=== PATIENT | female | born 1960 | race Caucasian/White ===

== ENCOUNTER 2017-07-23 17:30 | Inpatient (IN) | payer MEDICARE, MEDICAID ==
[~2017-07-23] VITALS: Ht 170.2 cm; Wt 91.3 kg
[~2017-07-23 17:30] MED LIST: FAMO-63 PO; SODI15DR4 OU
--- NOTE | 2017-07-23 17:36 | ED.ADGEN ---
Past History Past Medical History: Arthritis, Asthma, Depression, Schizophrenia Past Surgical History: Other Adult General Chief Complaint Chief Complaint " They sent me... to get check out..." HPI HPI Patient is a 56 year old female who presents with above hx and complaint by [facility] . on increasing mental status change. Pt. reportedly much clearer mental status in of this year per [facility] staff. Pt. seems to be now constantly confused. The last week pt has become very confused. Pt. is cooperative. Pt. obvious having problems with memory and requires repeated questions to obtain information. Patient does have a history of COPD, lupus, schizophrenia, anxiety disorder, Parkinson's, coronary artery disease, asthma, occasional ileus, depression, hypothyroid, and dysphagia. No recent medication changes. No travel or specific ill contacts. No history of fevers. Patient has been known to fall because of gait disorder. Patient normally follows with Dr. De Jesus. Review of Systems Review of Systems Patient has no specific complaints. Patient somewhat poor historian Constitutional: Denies fever or chills [] Eyes: Denies change in visual acuity, redness, or eye pain [] HENT: Denies nasal congestion or sore throat [] Respiratory: Denies cough or shortness of breath [] Cardiovascular: No additional information not addressed in HPI [] GI: Denies abdominal pain, nausea, vomiting, bloody stools or diarrhea [] : Denies dysuria or hematuria [] Musculoskeletal: History of generalized back pain or joint pain [] Integument: Denies rash or skin lesions [] Neurologic: Denies headache, focal weakness or sensory changes [] Endocrine: Denies polyuria or polydipsia [] All other systems were reviewed and found to be within normal limits, except as documented in this note. Family History Family History Not currently available Current Medications Current Medications Current Medications Medications (Trade) Dose Ordered Sig/Shae Start Time Stop Time Status Last Admin Dose Admin Cephalexin HCl (Keflex) 500 mg 1X ONCE 07/23/17 20:15 07/23/17 20:16 DC 07/23/17 20:10 500 MG Potassium Chloride (KCl Oral Soln) 40 meq 1X STAT 07/23/17 19:45 07/23/17 19:48 DC 07/23/17 20:06 40 MEQ Sodium Chloride 1,000 ml @ 1,000 mls/hr Q1H 07/23/17 18:00 07/23/17 18:59 DC 07/23/17 18:00 1,000 MLS/HR See nursing for assisted medications Allergies Allergies Allergies Coded Allergies Type Severity Reaction Last Updated Verified sulfamethoxazole Allergy Intermediate 07/23/17 Yes trimethoprim Allergy Intermediate 07/23/17 Yes Physical Exam Physical Exam Constitutional: no acute distress, non-toxic appearance. [] HENT: Normocephalic, atraumatic, bilateral external ears normal, oropharynx moist, no oral exudates, nose normal. [] Eyes: PERRLA, EOMI, conjunctiva normal, no discharge. Glasses Neck: Normal range of motion, no tenderness, supple, no stridor. [] Cardiovascular: Bradycardia Heart rate regular rhythm, no murmur []PMI to the left Lungs & Thorax: Bilateral breath sounds a few scattered wheezes at apexes on auscultation [] Abdomen: Bowel sounds normal, soft, no tenderness, no masses, no pulsatile masses. [] Skin: Warm, dry, no erythema, no rash. [] Back: No tenderness, no CVA tenderness. [] Extremities: No tenderness, no cyanosis, no clubbing, ROM intact, no edema. [] Rt. arm in compression splint. Neurologic: Alert and oriented X 3, normal motor function, normal sensory function, no focal deficits noted. [] Psychologic: Affect anxious, judgement appear s to have limited insight, mood depressed. Current Patient Data Vital Signs Vital Signs Date Time Temp Pulse Resp B/P (MAP) Pulse Ox O2 Delivery O2 Flow Rate FiO2 07/23/17 19:44 84 18 102/74 (83) 98 07/23/17 19:11 Room Air 07/23/17 17:39 97.7 Lab Results Laboratory Tests Test 07/23/17 18:19 White Blood Count 7.0 x10^3/uL (4.0-11.0) Red Blood Count 4.86 x10^6/uL (3.50-5.40) Hemoglobin 11.8 g/dL (12.0-15.5) L Hematocrit 37.4 % (36.0-47.0) Mean Corpuscular Volume 77 fL (79-100) L Mean Corpuscular Hemoglobin 24 pg (25-35) L Mean Corpuscular Hemoglobin Concent 32 g/dL (31-37) Red Cell Distribution Width 15.9 % (11.5-14.5) H Platelet Count 292 x10^3/uL (140-400) Neutrophils (%) (Auto) 63 % (31-73) Lymphocytes (%) (Auto) 27 % (24-48) Monocytes (%) (Auto) 8 % (0-9) Eosinophils (%) (Auto) 2 % (0-3) Basophils (%) (Auto) 1 % (0-3) Neutrophils # (Auto) 4.5 x10^3uL (1.8-7.7) Lymphocytes # (Auto) 1.9 x10^3/uL (1.0-4.8) Monocytes # (Auto) 0.5 x10^3/uL (0.0-1.1) Eosinophils # (Auto) 0.1 x10^3/uL (0.0-0.7) Basophils # (Auto) 0.0 x10^3/uL (0.0-0.2) Erythrocyte Sedimentation Rate 51 (0-25) H Prothrombin Time 10.1 SEC (9.4-11.4) Prothrombin Time INR 1.0 (0.9-1.1) PTT 25 SEC (23-33) Urine Collection Type U cath Urine Color Straw Urine Clarity Hazy Urine pH 6.5 Urine Specific Crane 1.015 Urine Protein Neg (NEG-TRACE) Urine Glucose (UA) Neg mg/dL (NEG) Urine Ketones (Stick) Neg mg/dL (NEG) Urine Blood Trace (NEG) Urine Nitrite Neg (NEG) Urine Bilirubin Neg (NEG) Urine Urobilinogen Dipstick 1 mg/dL (0.2 mg/dL) Urine Leukocyte Esterase Mod (NEG) Urine RBC Occ /HPF (0-2) Urine WBC 20-40 /HPF (0-4) Urine Squamous Epithelial Cells Occ /LPF Urine Bacteria Many /HPF (0-FEW) Urine Mucus Mod /LPF Sodium Level 140 mmol/L (136-145) Potassium Level 3.4 mmol/L (3.5-5.1) L Chloride Level 107 mmol/L (98-107) Carbon Dioxide Level 26 mmol/L (21-32) Anion Gap 7 (6-14) Blood Urea Nitrogen 11 mg/dL (7-20) Creatinine 0.8 mg/dL (0.6-1.0) Estimated GFR (Cockcroft-Gault) 74.5 Glucose Level 100 mg/dL (70-99) H Calcium Level 8.7 mg/dL (8.5-10.1) Magnesium Level 2.0 mg/dL (1.8-2.4) Total Bilirubin 0.2 mg/dL (0.2-1.0) Direct Bilirubin < 0.1 mg/dL (0.0-0.2) Aspartate Amino Transferase (AST) 11 U/L (15-37) L Alanine Aminotransferase (ALT) 10 U/L (14-59) L Alkaline Phosphatase 147 U/L (46-116) H Troponin I Quantitative < 0.017 ng/mL (0-0.055) Total Protein 7.3 g/dL (6.4-8.2) Albumin 2.7 g/dL (3.4-5.0) L Urine Opiates Screen Pos (NEG) Urine Methadone Screen Neg (NEG) Urine Barbiturates Neg (NEG) Urine Phencyclidine Screen Neg (NEG) Urine Amphetamine/Methamphetamine Neg (NEG) Urine Benzodiazepines Screen Neg (NEG) Urine Cocaine Screen Neg (NEG) Urine Cannabinoids Screen Neg (NEG) Ethyl Alcohol Level < 10 mg/dL (0-10) Urine Ethyl Alcohol Neg (NEG) EKG EKG My interpretation of EKG shows a sinus rhythm at 65 bpm. There is some nonspecific anterior lateral changes. There are findings of intraventricular block. No findings of acute STEMI with contralateral changes[] Radiology/Procedures Radiology/Procedures My interpretation of chest x-ray shows no free air under diaphragm. Some cephalization. But no acute cardiopulmonary findings. My interpretation of CT of head shows no shift, mass, bleed, fracture, or obvious infarct. Course & Med Decision Making Course & Med Decision Making Pertinent Labs and Imaging studies reviewed. (See chart for details). Pt. pre approved for [facility] admit to Dr. Arora. Will obtain a Med consult in AM with Dr. Nolan to follow up pending ESR, UA results and Anemia. [] Final Impression Final Impression 1. Mental Status Change[]\\ 2. Anemia hypochromic microcytic 3. Hypokalemia 4. Malnutrition albumin 2.7 5. History of schizoaffective disorder 6. Arthritis 7. UTI Problems: Dragon Disclaimer Dragon Disclaimer This electronic medical record was generated, in whole or in part, using a voice recognition dictation system. RONI MONCADA MD Jul 23, 2017 17:35
[2017-07-23] MEDS ORDERED: IV NORMAL SALINE 1,000ML 1,000 ML IV SCH (18:00)
--- NOTE | 2017-07-23 18:11 | RAD ---
CT head without contrast TECHNIQUE: [address] imaging skull base to vertex. HISTORY: Altered mental status. FINDINGS: No intracranial hemorrhage, mass, hydrocephalus, extra-axial fluid collections or infarction. Mild streak artifact from the skull base through the middle and posterior cranial fossa may decrease sensitivity to detect subtle pathology at these locations. Imaged orbits, mastoids and bones are unremarkable. IMPRESSION: No acute intracranial CT abnormality. Exposure: One or more of the following individualized dose reduction techniques were utilized for this examination: 1. Automated exposure control 2. Adjustment of the mA and/or kV according to patient size 3. Use of iterative reconstruction technique Electronically signed by: Garfield Daly MD (07/23/2017 6:08 PM) [facility]
[2017-07-23 18:40] LABS: BASO % 1 % (0-3); EOS # 0.1 x10^3/uL (0.0-0.7); EOS % 2 % (0-3); HEMATOCRIT 37.4 % (36.0-47.0); HEMOGLOBIN 11.8 g/dL (12.0-15.5); LYMPH # 1.9 x10^3/uL (1.0-4.8); LYMPH % 27 % (24-48); MEAN CORPUSCULAR HEMOGLOBIN 24 pg (25-35); MEAN CORPUSCULAR HGB CONC 32 g/dL (31-37); MEAN CORPUSCULAR VOLUME 77 fL (79-100); MONO # 0.5 x10^3/uL (0.0-1.1); MONO % 8 % (0-9); NEUT # 4.5 x10^3uL (1.8-7.7); NEUT % 63 % (31-73); PLATELET COUNT 292 x10^3/uL (140-400); RED BLOOD COUNT 4.86 x10^6/uL (3.50-5.40); RED CELL DISTRIBUTION WIDTH 15.9 % (11.5-14.5)
--- NOTE | 2017-07-23 19:05 | EKG ---
[address] [address] Test Date: 2017-07-23 Test Time: 17:39:56 Pat Name: EDGARD EPSTEIN Department: Room: Gender: F Director Medical Writing: DOMENICO : 1960 Requested By: RONI MONCADA Order Number: [id number] Reading MD: Rogerio Damon Measurements Intervals [place] Rate: 65 P: 52 AL: 182 QRS: 53 QRSD: 120 T: 20 QT: 402 QTc: 419 Interpretive Statements SINUS RHYTHM R-S TRANSITION ZONE IN V LEADS DISPLACED TO THE RIGHT QRS(T) CONTOUR ABNORMALITY CONSIDER ANTEROLATERAL MYOCARDIAL DAMAGE POSSIBLY ABNORMAL ECG RI6.01 No previous ECG available for comparison Electronically Signed On 07-26-2017 16:21:36 TRACK REPAIR PERSON by Rogerio Damon
[2017-07-23 19:19] LABS: ALBUMIN 2.7 g/dL (3.4-5.0); ALK PHOS 147 U/L (46-116); ALT (SGPT) 10 U/L (14-59); ANION GAP 7 (6-14); AST (SGOT) 11 U/L (15-37); BLOOD UREA NITROGEN 11 mg/dL (7-20); CALCIUM 8.7 mg/dL (8.5-10.1); CARBON DIOXIDE 26 mmol/L (21-32); CHLORIDE 107 mmol/L (98-107); CREATININE 0.8 mg/dL (0.6-1.0); DIRECT BILIRUBIN < 0.1 mg/dL (0.0-0.2); GFR 74.5; GLUCOSE 100 mg/dL (70-99); POTASSIUM 3.4 mmol/L (3.5-5.1); SODIUM 140 mmol/L (136-145); TOTAL BILIRUBIN 0.2 mg/dL (0.2-1.0); TOTAL PROTEIN 7.3 g/dL (6.4-8.2)
[2017-07-23 19:23] LABS: BARBITURATES NEG (NEG); BENZODIAZEPINES NEG (NEG); CANNABINOIDS NEG (NEG); COCAINE NEG (NEG); METHADONE NEG (NEG); OPIATES POS (NEG); PHENCYCLIDINE NEG (NEG)
[2017-07-23 19:31] LABS: AMPHETAMINE/METHAMPHETAMINE NEG (NEG)
[2017-07-23] MEDS ORDERED: POTASSIUM CHLORIDE 20 MEQ/15 ML ORAL LIQUID. PO STA (19:45)
[2017-07-23 19:55] LABS: BACTERIA,URINE MANY /HPF (0-FEW); BILIRUBIN,URINE NEG (NEG); CLARITY,URINE HAZY; COLOR,URINE STRAW; GLUCOSE,URINE NEG (NEG); NITRITE,URINE NEG (NEG); RBC,URINE OCC /HPF (0-2); SQUAMOUS EPITHELIAL CELL,UR OCC /LPF; UROBILINOGEN,URINE 1 mg/dL (0.2 mg/dL); WBC,URINE 20-40 /HPF (0-4)
[2017-07-23] MEDS ORDERED: CEPHALEXIN 250 MG CAPSULE PO ONE (20:15)
--- NOTE | 2017-07-23 20:30 | NUR ---
Admission Note with Justification for Admission to [facility] Patient admitted to [facility] for protective oversight for emergency stabilization of acute psychiatric crisis. Pt admitted from: SNF Mode of arrival: EMS Accompanied By: [facility] Staff Precipitating behaviors that initiated intake and admission:Pt noted with increased confusion, episodes of incontinence, Hallucinations, delusions, increased aggression towards staff and difficulty with redirection. Description of failure of out patient attempts at stabilization in previous setting list behavior and medication trials:Attempts to redirect and administration of scheduled medications not effective, Pt seen by Psychiatrist in facility with recommendation for Inpatient placement for medications stabilization. Behaviors and assessment findings upon admission: Pt alert and oriented to self and that she is in the hospital, unable to maintain conversation long enough to state the current year or the reason for her visit. Pt asks "where is Miri" when nurse asked pt whom she was speaking about, pt states "the girl that was just sitting on the bed with me" Calm and cooperative with cares, assessment and medications Plan: Admit for protective oversight for adjustment and stabilization of medications, behaviors and mood. Intense treatment regimen including groups, medication adjustments, therapy, consistent regimen for ADL's, self care, and sleep hygiene. Daily monitoring by Inpatient staff, Psychiatry, and Medical Physician.
[2017-07-23] MEDS ORDERED: GABA-586 PO (20:46)
[2017-07-23] MEDS ORDERED: LEVE250T30 PO (20:46)
[2017-07-23] MEDS ORDERED: MAG355OR11 PO (20:46)
[2017-07-23] MEDS ORDERED: CLON0.5T3 PO (20:46)
[2017-07-23] MEDS ORDERED: PARO30TA3 PO (20:46)
[2017-07-23] MEDS ORDERED: HYDR50CA2 PO (20:46)
[2017-07-23] MEDS ORDERED: IPRA3AMP NEB (20:46)
[2017-07-23] MEDS ORDERED: ACET-704 PO (20:46)
[2017-07-23] MEDS ORDERED: SENN8.6T99 PO (20:46)
[2017-07-23] MEDS ORDERED: LEVO75TA5 PO (20:46)
[2017-07-23] MEDS ORDERED: LIPA1CAP4 PO (20:46)
[2017-07-23] MEDS ORDERED: FURO40TA4 PO (20:46)
[2017-07-23] MEDS ORDERED: TRAZ150T49 PO (20:46)
[2017-07-23] MEDS ORDERED: NYST15OI TP (20:46)
[2017-07-23] MEDS ORDERED: ARIP5TAB13 PO (20:46)
[2017-07-23] MEDS ORDERED: BENZ0.5T PO (20:46)
[2017-07-23] MEDS ORDERED: ACET250T2 PO (20:46)
[2017-07-23] MEDS ORDERED: POLY119P4 PO (20:46)
[2017-07-23] MEDS ORDERED: acetaZOLAMIDE 250 MG TABLET PO SCH (21:00)
[2017-07-23] MEDS ORDERED: SENNOSIDES 8.6 MG TABLET PO PRN (21:00)
[2017-07-23] MEDS ORDERED: IPRATRPIUM/ALBUTEROL 0.5/2.5MG 3 ML NEBU. NEB PRN (21:00)
[2017-07-23] MEDS ORDERED: MAG HYDROX/AL HYDROX/SIMETH 30 ML ORAL.SUSP PO PRN (21:15)
[2017-07-23 21:41] VITALS: BP 113/54
[2017-07-23] MEDS: GABAPENTIN 300 MG CAPSULE. PO SCH (21:50)
[2017-07-23] MEDS: ACETAMINOPHEN/CODEINE 300/30MG TABLET PO SCH (21:50)
[2017-07-23] MEDS: traZODone 150 MG TABLET. PO SCH (21:50)
[2017-07-23] MEDS: clonazePAM 0.5 MG TABLET PO SCH (21:50)
[2017-07-23] MEDS: levETIRAcetam 250 MG TABLET PO SCH (21:50)
[2017-07-23] MEDS: BENZTROPINE MESYLATE 0.5 MG TABLET PO SCH (21:50)
[2017-07-23] MEDS: FAMOTIDINE 20 MG TABLET PO SCH (21:50)
[2017-07-23] MEDS: SODIUM CHLORIDE 5% OPHTH SOLUTION 15ML BOTTLE. OU SCH (21:51)
[2017-07-23 22:42] LABS: SEDIMENTATION RATE 51 (0-25)
[2017-07-24 05:48] VITALS: BP 112/55
[2017-07-24] MEDS: LEVOTHYROXINE 75 MCG TABLET PO SCH (05:53)
--- NOTE | 2017-07-24 05:54 | NUR ---
Patient has been provided with Practical Counseling for tobacco cessation. It included a face to face interaction and the following was discussed: Recognizing danger situations, Developing coping skills,Basic cessation information. Will follow for discharge needs and discharge planning. Patient states that she quit 25 days ago.
[2017-07-24 07:32] LABS: BASO % 1 % (0-3); EOS # 0.1 x10^3/uL (0.0-0.7); EOS % 2 % (0-3); HEMATOCRIT 37.1 % (36.0-47.0); HEMOGLOBIN 11.7 g/dL (12.0-15.5); LYMPH # 1.3 x10^3/uL (1.0-4.8); LYMPH % 17 % (24-48); MEAN CORPUSCULAR HEMOGLOBIN 24 pg (25-35); MEAN CORPUSCULAR HGB CONC 32 g/dL (31-37); MEAN CORPUSCULAR VOLUME 77 fL (79-100); MONO # 0.6 x10^3/uL (0.0-1.1); MONO % 8 % (0-9); NEUT # 5.4 x10^3uL (1.8-7.7); NEUT % 73 % (31-73); PLATELET COUNT 273 x10^3/uL (140-400); RED BLOOD COUNT 4.81 x10^6/uL (3.50-5.40); WHITE BLOOD COUNT 7.4 x10^3/uL (4.0-11.0)
[2017-07-24 07:45] LABS: CALCIUM 9.1 mg/dL (8.5-10.1); CREATININE 0.8 mg/dL (0.6-1.0); GFR 74.5; POTASSIUM 3.6 mmol/L (3.5-5.1)
[2017-07-24] MEDS: levETIRAcetam 250 MG TABLET PO SCH ×2 (08:03→19:44)
[2017-07-24] MEDS: BENZTROPINE MESYLATE 0.5 MG TABLET PO SCH ×2 (08:03→19:43)
[2017-07-24] MEDS: GABAPENTIN 300 MG CAPSULE. PO SCH ×3 (08:03→19:43)
[2017-07-24] MEDS: clonazePAM 0.5 MG TABLET PO SCH ×2 (08:03→19:44)
[2017-07-24] MEDS: FAMOTIDINE 20 MG TABLET PO SCH ×2 (08:03→19:44)
[2017-07-24] MEDS: ACETAMINOPHEN/CODEINE 300/30MG TABLET PO SCH ×4 (08:05→19:43)
[2017-07-24] MEDS: CEPHALEXIN 250 MG CAPSULE PO SCH ×3 (08:05→19:43)
[2017-07-24] MEDS: FUROSEMIDE 40 MG TABLET PO SCH (08:06)
[2017-07-24] MEDS: LIPASE/PROTEAS/AMYLAS 10/34/55 CAPSULE.DR. PO SCH ×3 (08:06→16:51)
[2017-07-24] MEDS: ARIPiprazole 5 MG TABLET PO SCH (08:06)
[2017-07-24] MEDS: SODIUM CHLORIDE 5% OPHTH SOLUTION 15ML BOTTLE. OU SCH ×4 (08:08→19:45)
[2017-07-24] MEDS ORDERED: POLYETHYLENE GLYCOL 3350 17 GM PACKET. PO PRN (09:00)
--- NOTE | 2017-07-24 09:06 | RAD ---
AP PORTABLE CHEST Clinical Indication: cough. Mental status change. Comparison: None. Findings: Atherosclerotic aortic arch. The cardiomediastinal silhouette is normal. Lungs are clear. There is no pneumothorax. No pleural effusion is appreciated. There is no acute bone abnormality. IMPRESSION: No acute cardiopulmonary process.
--- NOTE | 2017-07-24 09:57 | NUR ---
Behavior Intervention Response and Plan: BIRP Note: Behavior: Assumed Care of patient, patient located in Dining Room at shift change. Patient exhibited the following behavior Calm, Disorganized, Able to Focus on Task. Brief assessment on rounds of vital signs, medication needs, lab studies, and pain. Treatment plan problems . Intervention: Patient assessed and the following interventions initiated safety checks 15 Minute Checks Cognitive Assessment , Head to toe Assessment , Medications. Response: After interactions and interventions patient responded in the following manner, Compliant , Cooperative ,Withdrawn. Continue to assess behaviors and condition will continue to monitor throughout the shift as needed. Patient educated on ADL's, and hand hygiene. Plan: Continue to monitor Master Treatment Plan for patient's progress toward short term goals of Improved Mood, Medication Compliance, residential goals to return to previous living setting vs placement. Continue to assess patient for changes in above assessment. Monitor for medication needs, pain, and safety concerns. Hourly rounding performed to ensure safe environment.
--- NOTE | 2017-07-24 12:27 | HP ---
ADMIT DATE: 07/23/2017 MEDICAL HISTORY AND PHYSICAL FOR THE [facility] REASON FOR ADMISSION TO THE [facility]: This is a 56-year-old female who has come from [facility]. She has had increase confusion, delusional, hallucinations, incontinent, verbally aggressive, cut her hair or roommate, strange behavior. Onset of symptoms 6 weeks. The patient was seen by the psychiatrist and was treated for the flu. PAST MEDICAL HISTORY: Major depressive disorder, schizophrenia, anxiety, recent flu, unspecified heart failure, Parkinson's, COPD, asthma, hypothyroidism, hyperlipidemia, dysphagia. ALLERGIES: SULFAMETHOXAZOLE AND TRIMETHOPRIM. MEDICATIONS: Reviewed and are available on the MAR. REVIEW OF SYSTEMS: The patient does have urinary symptoms of dysuria and frequency. Positive cough, positive sputum. She wears a brace on the right wrist, unknown reason. Very poor historian. Very hard to hear as she speaks just not even at a whisper. OBJECTIVE: VITAL SIGNS: Blood pressure 112/55, pulse 84, respirations 18, pulse ox 100% on room air, temperature 97.7. Height 67 inches, weight 203.56 pounds. GENERAL: A 56-year-old in no acute distress. The patient only speaks above a whisper. She cannot follow directions. While we were talking she had an episode where she just stared out into space and could not answer even with redirection. HEENT: Hearing is normal. Eyes are clear. Nose is patent. Throat is clear. NECK: Supple without adenopathy. LUNGS: Clear to auscultation. She does have a slight cough. CARDIOVASCULAR: Regular rhythm and rate. ABDOMEN: Soft, nontender. Mild tenderness over the bladder. EXTREMITIES: Without edema. Gait: Ambulates without assistance. NEUROLOGIC: Cranial nerves are intact including sense of smell. LABORATORY DATA: CBC: Hemoglobin 11.7, MCV is 77. Sed rate of 51. Chemistry: TSH is 3.488, troponin normal, magnesium 2.0. Urinalysis, 20-40 white cells, moderate leukocyte esterase, negative nitrites. ASSESSMENT: 1. Urinary tract infection. 2. Severe microcytic anemia. 3. Mildly elevated sed rate. 4. Apparent injury of the right wrist. PLAN: Follow along with Dr. Arora. Treat her medical conditions. X-ray right wrist and she is being treated for UTI. CLIFF LIPSCOMB DO DR: Ryan JOB#: [id number] / [id number]
[2017-07-24] MEDS: acetaZOLAMIDE 250 MG TABLET PO SCH ×2 (12:43→19:45)
--- NOTE | 2017-07-24 14:06 | NUR ---
SW reviewed pts insurance upon admission. Per pts face sheet, c-snap, and intake sheet show pts insurance as primary Medicare with secondary [place] Medicaid. Pt is a 56yo female admitted to [facility] on 07/23/17 for increased confusion and paranoia, hallucinations, and unpredictable verbal outbursts. Clinician met with pt pt appeared somewhat unkempt with observed food on her shirt from lunch. Pt was pleasant during conversation. Her voice was barely audible noted by her whispered responses making it difficult to understand what she was saying. Her responses were nonsensical at times responding to question that rent was too high. Pt was observed with impaired insight into her situation and therefore information needed to be obtained from pts DPOA and nurse from [facility]. Per Krish Brandon, pts father, he adopted her as a baby. He is not aware of pts biological family and their history as it pertains to pt. She has an adoptive brother who lives in [place] Krish reports that they have no contact. He denies abuse/neglect concerns in pt. She is never with no children. 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 He reports that she enjoys puzzles and movies. He denies drug/alcohol abuse in the last 12 months and legal issues at this time. Per June, pts nurse at [facility], she has been steadily deteriorating in her overall level of function. She reports over the past 6 weeks pt has displayed unpredictable behaviors including verbal outbursts at staff, hallucinations, and paranoia. June reports that pt has made frequent comments about not knowing where she is at. She reports staff will put pt in her room after which she will ask where she is and ask where her room is. She reports that pt was found naked in another residents room due to the increased confusion. She states that pt has been thinking that staff is following her. She reports that pt was found cutting her hair and told staff she was trying to open her mail. There has also been concern with pt thinking that she is there to feed other residents. June notes that pts anger is directly related to her confusion and memory loss. She reports a resident that June helped recently passed and pt made a statement that she couldnt get all the jellyfish off of him. June reports that concern over pts behaviors as this isnt the [place] that we know. She reports pt is usually very helpful and kind at her previously known baseline. Per June and Krish pt is to return to [facility] once treatment at [facility] is completed. Per pts DPOA the goals for pt are to find out if there is anything that can be done to assist with her medication. June reports she wants pt to get help to determine the cause of the recent behavior or to understand if this is possibly her new baseline. Goals: 1. Medication adjustment/management 2. increase leisure and social activity Obstacles to discharge: appropriate medication regimen
[2017-07-24 16:16] VITALS: BP 108/66
[2017-07-24] MEDS: traZODone 150 MG TABLET. PO SCH (19:46)
[2017-07-24] MEDS: LACTOBACILLUS RHAMNOSUS GG 1 CAPSULE. PO SCH (19:46)
[2017-07-24 20:07] LABS: HEMOGLOBIN A1C 5.5 % (4.8-5.6)
--- NOTE | 2017-07-24 21:31 | PDOC ---
Exam Note: Michael Note: Please also refer to the separate dictated note~for this date of service dictated separately.~Patient seen individually. Discussed the patient with Nursing staff reviewed the chart.~Reviewed interim history and current functioning. Reviewed vital signs,~Labs/ Radiology~and current medications noted below. Continue current treatment with the changes noted in the dictated addendum note Assessment: Vital Signs: Vital Signs Date Time Temp Pulse Resp B/P (MAP) Pulse Ox O2 Delivery O2 Flow Rate FiO2 07/24/17 19:43 97 07/24/17 17:52 20 Room Air 07/24/17 16:16 97.8 78 108/66 (80) I&O Intake and Output 07/24/17 07:00 Intake Total 1000 ml Balance 1000 ml Intake Oral 0 ml IV Total 1000 ml Labs: Laboratory Tests Test 07/24/17 07:09 White Blood Count 7.4 x10^3/uL (4.0-11.0) Red Blood Count 4.81 x10^6/uL (3.50-5.40) Hemoglobin 11.7 g/dL (12.0-15.5) L Hematocrit 37.1 % (36.0-47.0) Mean Corpuscular Volume 77 fL (79-100) L Mean Corpuscular Hemoglobin 24 pg (25-35) L Mean Corpuscular Hemoglobin Concent 32 g/dL (31-37) Red Cell Distribution Width 16.0 % (11.5-14.5) H Platelet Count 273 x10^3/uL (140-400) Neutrophils (%) (Auto) 73 % (31-73) Lymphocytes (%) (Auto) 17 % (24-48) L Monocytes (%) (Auto) 8 % (0-9) Eosinophils (%) (Auto) 2 % (0-3) Basophils (%) (Auto) 1 % (0-3) Neutrophils # (Auto) 5.4 x10^3uL (1.8-7.7) Lymphocytes # (Auto) 1.3 x10^3/uL (1.0-4.8) Monocytes # (Auto) 0.6 x10^3/uL (0.0-1.1) Eosinophils # (Auto) 0.1 x10^3/uL (0.0-0.7) Basophils # (Auto) 0.0 x10^3/uL (0.0-0.2) Sodium Level 142 mmol/L (136-145) Potassium Level 3.6 mmol/L (3.5-5.1) Chloride Level 110 mmol/L (98-107) H Carbon Dioxide Level 23 mmol/L (21-32) Anion Gap 9 (6-14) Blood Urea Nitrogen 10 mg/dL (7-20) Creatinine 0.8 mg/dL (0.6-1.0) Estimated GFR (Cockcroft-Gault) 74.5 Glucose Level 105 mg/dL (70-99) H Hemoglobin A1c 5.5 % (4.8-5.6) Calcium Level 9.1 mg/dL (8.5-10.1) Current Medications: Meds: Current Medications Sodium Chloride 1,000 ml @ 1,000 mls/hr Q1H IV Last administered on 07/23/17 18:00; Start 07/23/17 at 18:00; Stop 07/23/17 at 18:59; Status DC Potassium Chloride (KCl Oral Soln) 40 meq 1X STAT PO Last administered on 20:06; Start 07/23/17 at 19:45; Stop 07/23/17 at 19:48; Status DC Cephalexin HCl (Keflex) 500 mg 1X ONCE PO Last administered on 07/23/17 20:10 ; Start 07/23/17 at 20:15; Stop 07/23/17 at 20:16; Status DC Cephalexin HCl (Keflex) 500 mg TID PO Last administered on 07/24/17 19:43; Start 07/24/17 at 09:00 Aripiprazole (Abilify) 5 mg DAILY PO Last administered on 07/24/17 08:06; Start 07/24/17 at 09:00 Benztropine Mesylate (Cogentin) 0.5 mg BID PO Last administered on 07/24/17 19 :43; Start 07/23/17 at 21:00 Clonazepam (KlonoPIN) 0.5 mg BID PO Last administered on 07/24/17 19:44; Start 07/23/17 at 21:00 Trazodone HCl (Desyrel) 150 mg QHS PO Last administered on 07/24/17at 19:46; Start 07/23/17 at 21:00 Hydroxyzine HCl (Atarax) 50 mg PRN Q6HRS PRN PO ANXIETY/AGITATION; Start at 21:00 Acetaminophen/ Codeine Phosphate (Tylenol #3) 1 tab QID PO Last administered on 07/24/17at 19:43; Start 07/23/17 at 21:00 Acetazolamide (Diamox) 250 mg BID PO ; Start 07/23/17 at 21:00; Stop 07/23/17 at 21:23; Status DC Famotidine (Pepcid) 20 mg BID PO Last administered on 07/24/17 19:44; Start at 21:00 Furosemide (Lasix) 40 mg DAILY PO Last administered on 07/24/17 08:06; Start 07/24/17 at 09:00 Gabapentin (Neurontin) 300 mg TID PO Last administered on 07/24/17 19:43; Start 07/23/17 at 21:00 Albuterol/ Ipratropium (Duoneb) 3 ml PRN TID PRN NEB SHORTNESS OF BREATH; Start 07/23/17 at 21:00 Levetiracetam (Keppra) 250 mg BID PO Last administered on 07/24/17 19:44; Start 07/23/17 at 21:00 Levothyroxine Sodium (Synthroid) 75 mcg DAILY07 PO Last administered on 05:53; Start 07/24/17 at 07:00 Nystatin (Mycostatin) 1 nery PRN BID PRN TP RASH; Start 07/23/17 at 21:00 Polyethylene Glycol (miraLAX) 17 gm PRN DAILY PRN PO CONSTIPATION Last administered on 07/24/17 12:44; Start 07/24/17 at 09:00 Sennosides (Senna) 8.6 mg PRN DAILY PRN PO CONSTIPATION Last administered on 12:44; Start 07/23/17 at 21:00 Amylase/Lipase/ Protease (Zenpep 10,000) 1 cap TIDWMEALS PO Last administered on 07/24/17at 16:51; Start 07/24/17 at 08:00 Al Hydroxide/Mg Hydroxide (Mylanta Plus Xs) 30 ml PRN Q4HRS PRN PO DYSPEPSIA; Start 07/23/17 at 21:15 Sodium Chloride (Jasmeet-5) 1 drop QID OU Last administered on 07/24/17at 19:45; Start 07/23/17 at 21:00 Acetazolamide (Diamox) 250 mg BID PO Last administered on 07/24/17at 19:45; Start 07/24/17 at 09:00 Lactobacillus Rhamnosus (Culturelle) 1 cap BID PO Last administered on at 19:46; Start 07/24/17 at 21:00 Active Scripts Active Reported Nystatin 15 Gm Oint...g. 1 Nery TP PRN BID PRN Keppra (Levetiracetam) 250 Mg Tablet 250 Mg PO BID Neurontin (Gabapentin) 300 Mg Capsule 300 Mg PO TID Jasmeet-128 (Sodium Chloride) 15 Ml Drops 1 Drop OU QID 30 Days Maalox Advanced Suspension (Mag Hydrox/Aluminum Hyd/Simeth) 355 Ml Oral.susp 30 Ml PO PRN Q4HRS PRN Pepcid (Famotidine) 20 Mg Tablet 20 Mg PO BID 30 Days Senokot (Sennosides) 8.6 Mg Tablet 8.6 Mg PO PRN DAILY PRN Miralax (Polyethylene Glycol 3350) 119 Gm Powder 17 Gm PO PRN DAILY PRN Duoneb 0.5-3(2.5) Mg/3 Ml (Albuterol/Ipratropium) 3 Ml Ampul.neb 3 Ml NEB PRN TID PRN Hydroxyzine Pamoate 50 Mg Capsule 50 Mg PO PRN Q6HRS PRN Trazodone Hcl 150 Mg Tablet 150 Mg PO QHS Paroxetine Hcl 30 Mg Tablet 30 Mg PO DAILY Levothyroxine Sodium 75 Mcg Tablet 75 Mcg PO DAILY07 Furosemide 40 Mg Tablet 40 Mg PO DAILY Creon 12,000 Units Capsule (Lipase/Protease/Amylase) 1 Each Capsule. 1 Cap PO TIDWMEALS Clonazepam 0.5 Mg Tablet 0.5 Mg PO BID Benztropine Mesylate 0.5 Mg Tablet 0.5 Mg PO BID Abilify (Aripiprazole) 5 Mg Tablet 5 Mg PO DAILY Acetazolamide 250 Mg Tablet 250 Mg PO BID Tylenol With Codeine #3 Tablet (Acetaminophen With Codeine) 1 Each Tablet 1 Tab PO QID I have reviewed the current psychotropics carefully including drug interactions. Risk benefit ratio favors no change other than as noted in my dictated progress note. Diagnosis: Problems: (1) Change in mental status (2) Anxiety disorder (3) Bipolar affective, mixed, sev w/ psych (4) Impulse control disorder (5) Schizoaffective disorder, chronic condition with acute exacerbation ULISSES EPPS MD Jul 24, 2017 21:31
--- NOTE | 2017-07-25 01:57 | NUR ---
Behavior Intervention Response and Plan: BIRP Note: Behavior: Assumed Care of patient, patient located in Hallway at shift change. Patient exhibited the following behavior Exit Seeking, Wandering, Compliant. Brief assessment on rounds of vital signs, medication needs, lab studies, and pain. Treatment plan problems Altered thought process and Fall Risk. Intervention: Patient assessed and the following interventions initiated safety checks 15 Minute Checks Cognitive Assessment , Head to toe Assessment , Medications. Response: After interactions and interventions patient responded in the following manner, Calm , Compliant ,Cooperative. Continue to assess behaviors and condition will continue to monitor throughout the shift as needed. Patient educated on ADL's, and hand hygiene. Plan: Continue to monitor Master Treatment Plan for patient's progress toward short term goals of Decreased Anxiety, Improved Mood, fpc goals to return to previous living setting vs placement. Continue to assess patient for changes in above assessment. Monitor for medication needs, pain, and safety concerns. Hourly rounding performed to ensure safe environment.
[2017-07-25 05:44] VITALS: BP_SYST 101; BP_SYST 96; BP_DIAS 51; BP_DIAS 53
[2017-07-25] MEDS: LEVOTHYROXINE 75 MCG TABLET PO SCH (05:59)
[2017-07-25] MEDS: FUROSEMIDE 40 MG TABLET PO SCH (07:42)
[2017-07-25] MEDS: LACTOBACILLUS RHAMNOSUS GG 1 CAPSULE. PO SCH ×2 (07:42→19:45)
[2017-07-25] MEDS: ARIPiprazole 5 MG TABLET PO SCH (07:42)
[2017-07-25] MEDS: GABAPENTIN 300 MG CAPSULE. PO SCH ×3 (07:42→19:45)
[2017-07-25] MEDS: FAMOTIDINE 20 MG TABLET PO SCH ×2 (07:42→19:45)
[2017-07-25] MEDS: levETIRAcetam 250 MG TABLET PO SCH ×2 (07:42→19:45)
[2017-07-25] MEDS: SODIUM CHLORIDE 5% OPHTH SOLUTION 15ML BOTTLE. OU SCH ×4 (07:43→19:47)
[2017-07-25] MEDS: LIPASE/PROTEAS/AMYLAS 10/34/55 CAPSULE.DR. PO SCH ×3 (07:43→17:35)
[2017-07-25] MEDS: ACETAMINOPHEN/CODEINE 300/30MG TABLET PO SCH ×4 (07:43→19:45)
[2017-07-25] MEDS: clonazePAM 0.5 MG TABLET PO SCH ×2 (07:43→19:45)
[2017-07-25] MEDS: BENZTROPINE MESYLATE 0.5 MG TABLET PO SCH ×2 (07:43→19:45)
[2017-07-25] MEDS: CEPHALEXIN 250 MG CAPSULE PO SCH ×3 (07:43→19:45)
[2017-07-25] MEDS: acetaZOLAMIDE 250 MG TABLET PO SCH ×2 (07:43→19:46)
--- NOTE | 2017-07-25 09:21 | RAD ---
WRIST 3V RIGHT Clinical Indication: RIGHT WRIST PAIN Comparison: None. Findings: Moderate dorsal soft tissue swelling of the wrist. There is radiocarpal, triscaphe, intercarpal, and medial carpal metacarpal joint space narrowing. No acute fracture is identified. There is diffuse demineralization. IMPRESSION: 1. No acute fracture. 2. Degenerative arthropathy is advanced for patient age. 3. Diffuse demineralization. 4. Moderate dorsal soft tissue swelling of the wrist.
--- NOTE | 2017-07-25 09:58 | NUR ---
Behavior Intervention Response and Plan: BIRP Note: Behavior: Assumed Care of patient, patient located in Dining Room at shift change. Patient exhibited the following behavior Disorganized, Calm, Able to Focus on Task. Brief assessment on rounds of vital signs, medication needs, lab studies, and pain. Treatment plan problems . Intervention: Patient assessed and the following interventions initiated safety checks 15 Minute Checks Head to toe Assessment , Cognitive Assessment , Medications. Response: After interactions and interventions patient responded in the following manner, Withdrawn , Compliant ,Cooperative. Continue to assess behaviors and condition will continue to monitor throughout the shift as needed. Patient educated on ADL's, and hand hygiene. Plan: Continue to monitor Master Treatment Plan for patient's progress toward short term goals of Improved Mood, Medication Compliance, halfway goals to return to previous living setting vs placement. Continue to assess patient for changes in above assessment. Monitor for medication needs, pain, and safety concerns. Hourly rounding performed to ensure safe environment.
--- NOTE | 2017-07-25 14:37 | HP ---
ADMIT DATE: 07/24/2017 PSYCHIATRIC ADMISSION HISTORY/EVALUATION This is a late entry for date of service 07/24/2017, covers elements not covered by initial note of 07/24/2017. The patient was seen individually evening of 07/24/2017. Discussed with nursing staff, reviewed the chart and discussed with nursing staff several times prior to my visit with the patient to gather historical information, reasons prompting referral for inpatient psychiatric stabilization. Her psychiatrist at [facility], Dr. Weber and primary care physician, Dr. Ishaan Freedman. IDENTIFYING DATA: The patient is a 56-year-old female referred from [facility] as noted above on account of acute exacerbation of her schizoaffective disorder, bipolar type and failure of outpatient psychiatric interventions. CHIEF COMPLAINT: "They are coming to get me." HISTORY OF PRESENT ILLNESS: The patient has a history of schizoaffective disorder, bipolar type. More recently, she has been stable, but for the past several days, she has been increasingly confused, incontinent with worsening agitation with staff, delusional and actively hallucinating, having "strange behaviors." She has had sleep and appetite changes. She does have a UTI and was started on Keflex and this could be worsening her psychiatric symptoms. Nevertheless, behaviors have been unmanageable, out of control at the [facility], potentially dangerous and she had failed outpatient psychiatric interventions resulting in this referral. No active suicidal or homicidal ideation. PAST PSYCHIATRIC HISTORY: Positive for schizoaffective disorder, bipolar type. PAST MEDICAL HISTORY: Positive for CHF, COPD, hypothyroidism, asthma, renal failure, hyperlipidemia, dysphagia. Current UTI. Seizure disorder. Accu-Cheks, none. ALLERGIES: BACTRIM. CODE STATUS: DNR. DIET: Regular, takes her medications whole. FAMILY HISTORY: Noncontributory. SOCIAL HISTORY: Questionable history of alcohol abuse. No physical, sexual or elder abuse history is noted. Not known to be a perpetrator. Reaction to hospitalization, the patient accepting of it. ASSETS: Stable living at the [facility], cognitively reasonably intact other than recent confusion with worsening psychosis and UTI. MENTAL STATUS EXAMINATION: The patient was seen individually evening of 07/24/2017. She is oriented to herself, unable to answer questions regarding year or where she is. Talking in whispers, I had to put my ear very close to her mouth to even hear parts of her conversation. She has been paranoid, delusional, somewhat drowsy in the evening, more awake and alert in the morning and at night, she was actively hallucinating, turning someone's light on and off, looking for the woman "Selina." Quite psychotic, restless, agitated at times. No active suicidal or homicidal ideation. IMPRESSION: Schizoaffective disorder, bipolar type, mixed with psychotic features; anxiety disorder, unspecified; impulse control disorder, unspecified; cognitive disorder, unspecified. Rest as above including urinary tract infection. PLAN: Admit to Gerops[facility]iat[facility] Unit at [facility]. I will see the patient daily individually from a psychiatric standpoint. Medical followup per Dr. Nolan/Dr. White. Continue the patient on her current psychotropics, Abilify 5 mg a day, Cogentin 0.5 mg b.i.d., Klonopin 0.5 mg b.i.d., Keppra 250 b.i.d., for seizure disorder, Paxil 30 mg a day, trazodone 150 mg at bedtime, hydroxyzine p.r.n. anxiety. May consider tapering the Cogentin, may need to increase the Abilify. Consider Depakote as a mood stabilizer. Consider Risperdal as an atypical antipsychotic, but I would like to see how she does as the UTI resolves and what residual psychotic symptoms persist. Medical followup per Dr. Nolan/Dr. White. ULISSES EPPS MD DR: KEMAR/rashaun JOB#: [id number] / [id number]
[2017-07-25 16:03] VITALS: BP 119/52
[2017-07-25] MEDS: traZODone 150 MG TABLET. PO SCH (19:45)
--- NOTE | 2017-07-25 20:36 | PDOC ---
Exam Note: Michael Note: Please also refer to the separate dictated note~for this date of service dictated separately.~Patient seen individually. Discussed the patient with Nursing staff reviewed the chart.~Reviewed interim history and current functioning. Reviewed vital signs,~Labs/ Radiology~and current medications noted below. Continue current treatment with the changes noted in the dictated addendum note Assessment: Vital Signs: Vital Signs Date Time Temp Pulse Resp B/P (MAP) Pulse Ox O2 Delivery O2 Flow Rate FiO2 07/25/17 19:45 100 07/25/17 18:35 18 07/25/17 16:03 97.7 68 119/52 (74) 07/25/17 08:43 Room Air I&O Intake and Output 07/25/17 07:00 Intake Total 1260 ml Balance 1260 ml Intake Oral 1260 ml Current Medications: Meds: Current Medications Sodium Chloride 1,000 ml @ 1,000 mls/hr Q1H IV Last administered on 07/23/17 18:00; Start 07/23/17 at 18:00; Stop 07/23/17 at 18:59; Status DC Potassium Chloride (KCl Oral Soln) 40 meq 1X STAT PO Last administered on at 20:06; Start 07/23/17 at 19:45; Stop 07/23/17 at 19:48; Status DC Cephalexin HCl (Keflex) 500 mg 1X ONCE PO Last administered on 07/23/17at 20:10 ; Start 07/23/17 at 20:15; Stop 07/23/17 at 20:16; Status DC Cephalexin HCl (Keflex) 500 mg TID PO Last administered on 07/25/17at 19:45; Start 07/24/17 at 09:00 Aripiprazole (Abilify) 5 mg DAILY PO Last administered on 07/25/17at 07:42; Start 07/24/17 at 09:00 Benztropine Mesylate (Cogentin) 0.5 mg BID PO Last administered on 07/25/17 19 :45; Start 07/23/17 at 21:00 Clonazepam (KlonoPIN) 0.5 mg BID PO Last administered on 07/25/17 19:45; Start 07/23/17 at 21:00 Trazodone HCl (Desyrel) 150 mg QHS PO Last administered on 07/25/17 19:45; Start 07/23/17 at 21:00 Hydroxyzine HCl (Atarax) 50 mg PRN Q6HRS PRN PO ANXIETY/AGITATION; Start at 21:00 Acetaminophen/ Codeine Phosphate (Tylenol #3) 1 tab QID PO Last administered on 07/25/17 19:45; Start 07/23/17 at 21:00 Acetazolamide (Diamox) 250 mg BID PO ; Start 07/23/17 at 21:00; Stop 07/23/17 at 21:23; Status DC Famotidine (Pepcid) 20 mg BID PO Last administered on 07/25/17 19:45; Start at 21:00 Furosemide (Lasix) 40 mg DAILY PO Last administered on 07/25/17 07:42; Start 07/24/17 at 09:00 Gabapentin (Neurontin) 300 mg TID PO Last administered on 07/25/17 19:45; Start 07/23/17 at 21:00 Albuterol/ Ipratropium (Duoneb) 3 ml PRN TID PRN NEB SHORTNESS OF BREATH; Start 07/23/17 at 21:00 Levetiracetam (Keppra) 250 mg BID PO Last administered on 07/25/17 19:45; Start 07/23/17 at 21:00 Levothyroxine Sodium (Synthroid) 75 mcg DAILY07 PO Last administered on at 05:59; Start 07/24/17 at 07:00 Nystatin (Mycostatin) 1 nery PRN BID PRN TP RASH; Start 07/23/17 at 21:00 Polyethylene Glycol (miraLAX) 17 gm PRN DAILY PRN PO CONSTIPATION Last administered on 07/24/17 12:44; Start 07/24/17 at 09:00 Sennosides (Senna) 8.6 mg PRN DAILY PRN PO CONSTIPATION Last administered on 12:44; Start 07/23/17 at 21:00 Amylase/Lipase/ Protease (Zenpep 10,000) 1 cap TIDWMEALS PO Last administered on 07/25/17 17:35; Start 07/24/17 at 08:00 Al Hydroxide/Mg Hydroxide (Mylanta Plus Xs) 30 ml PRN Q4HRS PRN PO DYSPEPSIA; Start 07/23/17 at 21:15 Sodium Chloride (Jasmeet-5) 1 drop QID OU Last administered on 07/25/17at 19:47; Start 07/23/17 at 21:00 Acetazolamide (Diamox) 250 mg BID PO Last administered on 07/25/17at 19:46; Start 07/24/17 at 09:00 Lactobacillus Rhamnosus (Culturelle) 1 cap BID PO Last administered on at 19:45; Start 07/24/17 at 21:00 Active Scripts Active Reported Nystatin 15 Gm Oint...g. 1 Nery TP PRN BID PRN Keppra (Levetiracetam) 250 Mg Tablet 250 Mg PO BID Neurontin (Gabapentin) 300 Mg Capsule 300 Mg PO TID Jasmeet-128 (Sodium Chloride) 15 Ml Drops 1 Drop OU QID 30 Days Maalox Advanced Suspension (Mag Hydrox/Aluminum Hyd/Simeth) 355 Ml Oral.susp 30 Ml PO PRN Q4HRS PRN Pepcid (Famotidine) 20 Mg Tablet 20 Mg PO BID 30 Days Senokot (Sennosides) 8.6 Mg Tablet 8.6 Mg PO PRN DAILY PRN Miralax (Polyethylene Glycol 3350) 119 Gm Powder 17 Gm PO PRN DAILY PRN Duoneb 0.5-3(2.5) Mg/3 Ml (Albuterol/Ipratropium) 3 Ml Ampul.neb 3 Ml NEB PRN TID PRN Hydroxyzine Pamoate 50 Mg Capsule 50 Mg PO PRN Q6HRS PRN Trazodone Hcl 150 Mg Tablet 150 Mg PO QHS Paroxetine Hcl 30 Mg Tablet 30 Mg PO DAILY Levothyroxine Sodium 75 Mcg Tablet 75 Mcg PO DAILY07 Furosemide 40 Mg Tablet 40 Mg PO DAILY Creitalo [place] 12,000 Units Capsule (Lipase/Protease/Amylase) 1 Each Capsule. 1 Cap PO TIDWMEALS Clonazepam 0.5 Mg Tablet 0.5 Mg PO BID Benztropine Mesylate 0.5 Mg Tablet 0.5 Mg PO BID Abilify (Aripiprazole) 5 Mg Tablet 5 Mg PO DAILY Acetazolamide 250 Mg Tablet 250 Mg PO BID Tylenol With Codeine #3 Tablet (Acetaminophen With Codeine) 1 Each Tablet 1 Tab PO QID I have reviewed the current psychotropics carefully including drug interactions. Risk benefit ratio favors no change other than as noted in my dictated progress note. Diagnosis: Problems: (1) Change in mental status (2) Anxiety disorder (3) Bipolar affective, mixed, sev w/ psych (4) Impulse control disorder (5) Schizoaffective disorder, chronic condition with acute exacerbation ULISSES EPPS MD Jul 25, 2017 20:36
--- NOTE | 2017-07-25 20:45 | NUR ---
Nursing Note: Dr. Arora on unit, Informed of pt exit seeking and wandering behaviors, orders received as follows: Consult Dr. Burton for Seizure Disorder, Depakote ER 500mg QHS, Decrease Cogentin to 0.5mg Daily, CBC, CMP, Mg+ and VPA on 07/29/17. Orders processed and implemented at this time
[2017-07-25] MEDS: DIVALPROEX ER 500 MG TAB.ER.24H PO SCH (21:33)
--- NOTE | 2017-07-26 00:33 | NUR ---
Behavior Intervention Response and Plan: BIRP Note: Behavior: Assumed Care of patient, patient located in Hallway at shift change. Patient exhibited the following behavior Exit Seeking, Wandering, Compliant. Brief assessment on rounds of vital signs, medication needs, lab studies, and pain. Treatment plan problems Altered thought process and Fall Risk. Intervention: Patient assessed and the following interventions initiated safety checks 15 Minute Checks Cognitive Assessment , Head to toe Assessment , Medications. Response: After interactions and interventions patient responded in the following manner, Calm , Compliant ,Cooperative. Continue to assess behaviors and condition will continue to monitor throughout the shift as needed. Patient educated on ADL's, and hand hygiene. Plan: Continue to monitor Master Treatment Plan for patient's progress toward short term goals of Decreased Anxiety, Improved Mood, group home goals to return to previous living setting vs placement. Continue to assess patient for changes in above assessment. Monitor for medication needs, pain, and safety concerns. Hourly rounding performed to ensure safe environment.
[2017-07-26 05:58] VITALS: BP 114/73
[2017-07-26] MEDS: LEVOTHYROXINE 75 MCG TABLET PO SCH (06:11)
[2017-07-26] MEDS: FAMOTIDINE 20 MG TABLET PO SCH ×2 (08:07→19:36)
[2017-07-26] MEDS: GABAPENTIN 300 MG CAPSULE. PO SCH ×3 (08:07→19:37)
[2017-07-26] MEDS: ARIPiprazole 5 MG TABLET PO SCH (08:07)
[2017-07-26] MEDS: LACTOBACILLUS RHAMNOSUS GG 1 CAPSULE. PO SCH ×2 (08:07→19:36)
[2017-07-26] MEDS: levETIRAcetam 250 MG TABLET PO SCH ×2 (08:07→19:37)
[2017-07-26] MEDS: LIPASE/PROTEAS/AMYLAS 10/34/55 CAPSULE.DR. PO SCH ×3 (08:07→16:50)
[2017-07-26] MEDS: clonazePAM 0.5 MG TABLET PO SCH ×2 (08:07→19:38)
[2017-07-26] MEDS: ACETAMINOPHEN/CODEINE 300/30MG TABLET PO SCH ×4 (08:08→19:38)
[2017-07-26] MEDS: FUROSEMIDE 40 MG TABLET PO SCH (08:08)
[2017-07-26] MEDS: BENZTROPINE MESYLATE 0.5 MG TABLET PO SCH (08:10)
[2017-07-26] MEDS: SODIUM CHLORIDE 5% OPHTH SOLUTION 15ML BOTTLE. OU SCH ×4 (08:10→19:39)
[2017-07-26] MEDS: acetaZOLAMIDE 250 MG TABLET PO SCH ×2 (08:10→20:00)
[2017-07-26] MEDS: CEPHALEXIN 250 MG CAPSULE PO SCH ×2 (08:11→13:16)
--- NOTE | 2017-07-26 10:39 | NUR ---
Behavior Intervention Response and Plan: BIRP Note: Behavior: Assumed Care of patient, patient located in Hallway at shift change. Patient exhibited the following behavior Disorganized, Compulsive, Wandering. Brief assessment on rounds of vital signs, medication needs, lab studies, and pain. Treatment plan problems . Intervention: Patient assessed and the following interventions initiated safety checks 15 Minute Checks Cognitive Assessment , Head to toe Assessment , Medications. Response: After interactions and interventions patient responded in the following manner, Wandering , Disorganized ,Cooperative. Continue to assess behaviors and condition will continue to monitor throughout the shift as needed. Patient educated on ADL's, and hand hygiene. 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 Continue to assess patient for changes in above assessment. Monitor for medication needs, pain, and safety concerns. Hourly rounding performed to ensure safe environment.
--- NOTE | 2017-07-26 10:45 | NUR ---
Patient has been very disorganized this AM. She has been wandering up and down hallway, appears confused, and will only communicate in a whisper. Patient found in another patient's room- she had sat on an empty bed and apparently used it as a toilet as there was urine found on the floor and bed, and patient removed her underwear and pants which were soiled. Nurse will attempt to get UA on patient after lunch. Addendum: 07/26/17 at 1346 by DAPHNIE WILSON RN Attempted to toilet patient again at approx. 1300 after lunch. Able to assist patient to her bathroom and she sat down on the urine hat, but had small bowel movement which mixed with urine, will attempt again before dinner. Addendum: 07/26/17 at 1520 by DAPHNIE WILSON RN UA obtained via clean catch, sample sent to lab.
[2017-07-26 13:12] LABS: THYROXINE 8.4 ug/dL (4.5-12.0)
[2017-07-26 13:12] LABS: HCV ANTIBODY 0.1 s/co ratio (0.0-0.9); HEP A IGM ABDY Negative (Negative)
--- NOTE | 2017-07-26 14:03 | NUR ---
Dr. Burton paged and notified of patient's consult regarding medications for her hx of seizures, and patient taking Cogentin with no s/s of EPS, no other concerns at this time. Addendum: 07/26/17 at 1838 by DAPHNIE WILSON RN Patient seen by Dr. Burton, okay to continue current medications and he will see her again tomorrow.
[2017-07-26 15:24] LABS: BILIRUBIN,URINE NEG (NEG); CLARITY,URINE HAZY; COLOR,URINE YELLOW; GLUCOSE,URINE NEG (NEG); NITRITE,URINE NEG (NEG); UROBILINOGEN,URINE 0.2 mg/dL (0.2 mg/dL)
[2017-07-26 15:25] LABS: BACTERIA,URINE FEW /HPF (0-FEW); HYALINE CASTS, URINE OCC /HPF; SQUAMOUS EPITHELIAL CELL,UR MOD /LPF
--- NOTE | 2017-07-26 15:40 | NUR ---
ACTIVITY THERAPY ASSESSMENT Completed based on observation and interview. Pt. stated she was looking for her friend, Elisabet, and initially said she did not want to sit and talk with SCALE AND SKIP CAR OPERATOR. After encouragement, Pt. sat and SCALE AND SKIP CAR OPERATOR tried to ask her questions. Pt. spoke in a whisper and was difficult to understand. She leaned her head down and had poor eye contact. Pt. is disorganized and often wanders the unit, carrying random items. SCALE AND SKIP CAR OPERATOR listed leisure activities and Pt. stated yes or no. Pt. likes to read, walk, watch TV, and read. She has little interaction/ engagement/ acknowledgement of others. Initial goal aimed to increase sensory stimulation: Pt. will participate in all individual and group sessions focused on sensory stimulation.
[2017-07-26 16:28] VITALS: BP 100/67
[2017-07-26] MEDS: traZODone 150 MG TABLET. PO SCH (19:36)
[2017-07-26] MEDS: DIVALPROEX ER 500 MG TAB.ER.24H PO SCH (19:37)
[2017-07-26] MEDS: risperiDONE 0.5 MG TABLET. PO SCH (19:39)
--- NOTE | 2017-07-26 22:24 | PDOC ---
Exam Note: Micheal Note: Please also refer to the separate dictated note~for this date of service dictated separately.~Patient seen individually. Discussed the patient with Nursing staff reviewed the chart.~Reviewed interim history and current functioning. Reviewed vital signs,~Labs/ Radiology~and current medications noted below. Continue current treatment with the changes noted in the dictated addendum note Assessment: Vital Signs: Vital Signs Date Time Temp Pulse Resp B/P (MAP) Pulse Ox O2 Delivery O2 Flow Rate FiO2 07/26/17 20:38 18 95 Room Air 07/26/17 16:28 98.9 88 100/67 (78) I&O Intake and Output 07/26/17 07:00 Intake Total 960 ml Balance 960 ml Intake Oral 960 ml # Bowel Movements 1 Labs: Laboratory Tests Test 07/26/17 15:00 Urine Collection Type Unknown Urine Color Yellow Urine Clarity Hazy Urine pH 6.0 Urine Specific [place] 1.015 Urine Protein Neg (NEG-TRACE) Urine Glucose (UA) Neg mg/dL (NEG) Urine Ketones (Stick) Neg mg/dL (NEG) Urine Blood Neg (NEG) Urine Nitrite Neg (NEG) Urine Bilirubin Neg (NEG) Urine Urobilinogen Dipstick 0.2 mg/dL (0.2 mg/dL) Urine Leukocyte Esterase Neg (NEG) Urine RBC 1-2 /HPF (0-2) Urine WBC 1-4 /HPF (0-4) Urine Squamous Epithelial Cells Mod /LPF Urine Bacteria Few /HPF (0-FEW) Urine Hyaline Casts Occ /HPF Urine Mucus Slight /LPF Current Medications: Meds: Current Medications Sodium Chloride 1,000 ml @ 1,000 mls/hr Q1H IV Last administered on 07/23/17at 18:00; Start 07/23/17 at 18:00; Stop 07/23/17 at 18:59; Status DC Potassium Chloride (KCl Oral Soln) 40 meq 1X STAT PO Last administered on at 20:06; Start 07/23/17 at 19:45; Stop 07/23/17 at 19:48; Status DC Cephalexin HCl (Keflex) 500 mg 1X ONCE PO Last administered on 07/23/17at 20:10 ; Start 07/23/17 at 20:15; Stop 07/23/17 at 20:16; Status DC Cephalexin HCl (Keflex) 500 mg TID PO Last administered on 07/25/17 19:45; Start 07/24/17 at 09:00; Stop 07/26/17 at 18:23; Status DC Aripiprazole (Abilify) 5 mg DAILY PO Last administered on 07/26/17at 08:07; Start 07/24/17 at 09:00; Stop 07/26/17 at 19:19; Status DC Benztropine Mesylate (Cogentin) 0.5 mg BID PO Last administered on 07/25/17 19 :45; Start 07/23/17 at 21:00; Stop 07/25/17 at 21:10; Status DC Clonazepam (KlonoPIN) 0.5 mg BID PO Last administered on 07/26/17 19:38; Start 07/23/17 at 21:00 Trazodone HCl (Desyrel) 150 mg QHS PO Last administered on 07/26/17 19:36; Start 07/23/17 at 21:00 Hydroxyzine HCl (Atarax) 50 mg PRN Q6HRS PRN PO ANXIETY/AGITATION; Start at 21:00 Acetaminophen/ Codeine Phosphate (Tylenol #3) 1 tab QID PO Last administered on 07/26/17 19:38; Start 07/23/17 at 21:00 Acetazolamide (Diamox) 250 mg BID PO ; Start 07/23/17 at 21:00; Stop 07/23/17 at 21:23; Status DC Famotidine (Pepcid) 20 mg BID PO Last administered on 07/26/17 19:36; Start at 21:00 Furosemide (Lasix) 40 mg DAILY PO Last administered on 07/26/17 08:08; Start 07/24/17 at 09:00 Gabapentin (Neurontin) 300 mg TID PO Last administered on 07/26/17 19:37; Start 07/23/17 at 21:00 Albuterol/ Ipratropium (Duoneb) 3 ml PRN TID PRN NEB SHORTNESS OF BREATH; Start 07/23/17 at 21:00 Levetiracetam (Keppra) 250 mg BID PO Last administered on 07/26/17 19:37; Start 07/23/17 at 21:00 Levothyroxine Sodium (Synthroid) 75 mcg DAILY07 PO Last administered on 06:11; Start 07/24/17 at 07:00 Nystatin (Mycostatin) 1 nery PRN BID PRN TP RASH; Start 07/23/17 at 21:00 Polyethylene Glycol (miraLAX) 17 gm PRN DAILY PRN PO CONSTIPATION Last administered on 07/24/17 12:44; Start 07/24/17 at 09:00 Sennosides (Senna) 8.6 mg PRN DAILY PRN PO CONSTIPATION Last administered on 12:44; Start 07/23/17 at 21:00 Amylase/Lipase/ Protease (Zenpep 10,000) 1 cap TIDWMEALS PO Last administered on 07/26/17 16:50; Start 07/24/17 at 08:00 Al Hydroxide/Mg Hydroxide (Mylanta Plus Xs) 30 ml PRN Q4HRS PRN PO DYSPEPSIA; Start 07/23/17 at 21:15 Sodium Chloride (Jasmeet-5) 1 drop QID OU Last administered on 07/26/17 19:39; Start 07/23/17 at 21:00 Acetazolamide (Diamox) 250 mg BID PO Last administered on 07/26/17 08:10; Start 07/24/17 at 09:00 Lactobacillus Rhamnosus (Culturelle) 1 cap BID PO Last administered on 19:36; Start 07/24/17 at 21:00 Benztropine Mesylate (Cogentin) 0.5 mg DAILY PO Last administered on 07/26/17 08:10; Start 07/26/17 at 09:00 Divalproex Sodium (Depakote Er) 500 mg QHS PO Last administered on 07/26/17 19 :37; Start 07/25/17 at 21:30 Risperidone (RisperDAL) 0.5 mg HS PO Last administered on 07/26/17 19:39; Start 07/26/17 at 21:00 Active Scripts Active Reported Nystatin 15 Gm Oint...g. 1 Nery TP PRN BID PRN Keppra (Levetiracetam) 250 Mg Tablet 250 Mg PO BID Neurontin (Gabapentin) 300 Mg Capsule 300 Mg PO TID Jasmeet-128 (Sodium Chloride) 15 Ml Drops 1 Drop OU QID 30 Days Maalox Advanced Suspension (Mag Hydrox/Aluminum Hyd/Simeth) 355 Ml Oral.susp 30 Ml PO PRN Q4HRS PRN Pepcid (Famotidine) 20 Mg Tablet 20 Mg PO BID 30 Days Senokot (Sennosides) 8.6 Mg Tablet 8.6 Mg PO PRN DAILY PRN Miralax (Polyethylene Glycol 3350) 119 Gm Powder 17 Gm PO PRN DAILY PRN Duoneb 0.5-3(2.5) Mg/3 Ml (Albuterol/Ipratropium) 3 Ml Ampul.neb 3 Ml NEB PRN TID PRN Hydroxyzine Pamoate 50 Mg Capsule 50 Mg PO PRN Q6HRS PRN Trazodone Hcl 150 Mg Tablet 150 Mg PO QHS Paroxetine Hcl 30 Mg Tablet 30 Mg PO DAILY Levothyroxine Sodium 75 Mcg Tablet 75 Mcg PO DAILY07 Furosemide 40 Mg Tablet 40 Mg PO DAILY [place] Dr 12,000 Units Capsule (Lipase/Protease/Amylase) 1 Each Capsule.dr 1 Cap PO TIDWMEALS Clonazepam 0.5 Mg Tablet 0.5 Mg PO BID Benztropine Mesylate 0.5 Mg Tablet 0.5 Mg PO BID Abilify (Aripiprazole) 5 Mg Tablet 5 Mg PO DAILY Acetazolamide 250 Mg Tablet 250 Mg PO BID Tylenol With Codeine #3 Tablet (Acetaminophen With Codeine) 1 Each Tablet 1 Tab PO QID I have reviewed the current psychotropics carefully including drug interactions. Risk benefit ratio favors no change other than as noted in my dictated progress note. Diagnosis: Problems: (1) Change in mental status (2) Anxiety disorder (3) Bipolar affective, mixed, sev w/ psych (4) Impulse control disorder (5) Schizoaffective disorder, chronic condition with acute exacerbation ULISSES EPPS MD Jul 26, 2017 22:24
--- NOTE | 2017-07-26 23:12 | NUR ---
Behavior Intervention Response and Plan: BIRP Note: Behavior: Assumed Care of patient, patient located in Day Room at shift change. Patient exhibited the following behavior Calm, Disorganized, Able to Focus on Task. Brief assessment on rounds of vital signs, medication needs, lab studies, and pain. Treatment plan problems . Intervention: Patient assessed and the following interventions initiated safety checks 15 Minute Checks Head to toe Assessment , Cognitive Assessment , Medications. Response: After interactions and interventions patient responded in the following manner, Drowsy , Calm ,Cooperative. Continue to assess behaviors and condition will continue to monitor throughout the shift as needed. Patient educated on ADL's, and hand hygiene. 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 Continue to assess patient for changes in above assessment. Monitor for medication needs, pain, and safety concerns. Hourly rounding performed to ensure safe environment.
--- NOTE | 2017-07-27 05:09 | PN ---
DATE: 07/25/2017 This is a late entry for 07/25/2017 covers the elements not covered in my initial note of 07/25/2017. I met with the patient evening of 07/25/2017. Per nursing report, the patient has done better, pleasantly confused, slept reasonably well. No EPS was noted and she is on Cogentin 0.5 mg b.i.d., will reduce to 0.5 mg a day. REVIEW OF SYSTEMS: No CV, , pulmonary, eye system symptoms on review. MENTAL STATUS EXAM: Oriented to herself and situation. Speech is low in volume, often whispering, oriented to herself. Abstraction fair, computation impaired, language function intact, attention span short. Mood and affect at times withdrawn, anxious. LABORATORY DATA: Reviewed. IMPRESSION: Schizoaffective disorder, bipolar type, mixed with psychotic features; cognitive disorder, unspecified. PLAN: Reduce the Cogentin as noted above, she does have a UTI, treated on Keflex. Continue rest psychotropics unchanged. ULISSES EPPS MD DR: KEMAR/rashaun JOB#: [id number] / [id number]
[2017-07-27] MEDS: LEVOTHYROXINE 75 MCG TABLET PO SCH (06:19)
[2017-07-27 06:26] VITALS: BP 89/54
[2017-07-27 07:47] VITALS: BP 92/57
[2017-07-27] MEDS: FUROSEMIDE 40 MG TABLET PO SCH (09:00)
[2017-07-27] MEDS: clonazePAM 0.5 MG TABLET PO SCH ×2 (09:02→20:16)
[2017-07-27] MEDS: GABAPENTIN 300 MG CAPSULE. PO SCH ×3 (09:02→20:15)
[2017-07-27] MEDS: FAMOTIDINE 20 MG TABLET PO SCH ×2 (09:02→20:15)
[2017-07-27] MEDS: LACTOBACILLUS RHAMNOSUS GG 1 CAPSULE. PO SCH ×2 (09:02→20:13)
[2017-07-27] MEDS: SODIUM CHLORIDE 5% OPHTH SOLUTION 15ML BOTTLE. OU SCH ×4 (09:02→20:22)
[2017-07-27] MEDS: acetaZOLAMIDE 250 MG TABLET PO SCH ×2 (09:03→20:22)
[2017-07-27] MEDS: levETIRAcetam 250 MG TABLET PO SCH ×2 (09:03→20:14)
[2017-07-27] MEDS: LIPASE/PROTEAS/AMYLAS 10/34/55 CAPSULE.DR. PO SCH ×3 (09:03→17:27)
[2017-07-27] MEDS: BENZTROPINE MESYLATE 0.5 MG TABLET PO SCH (09:03)
[2017-07-27] MEDS: ACETAMINOPHEN/CODEINE 300/30MG TABLET PO SCH ×4 (09:04→20:16)
--- NOTE | 2017-07-27 11:07 | NUR ---
Behavior Intervention Response and Plan: BIRP Note: Behavior: Assumed Care of patient, patient located in Day Room at shift change. Patient exhibited the following behavior Calm, Disorganized, Compliant. Brief assessment on rounds of vital signs, medication needs, lab studies, and pain. Treatment plan problems 1-2. Intervention: Patient assessed and the following interventions initiated safety checks 15 Minute Checks Cognitive Assessment , Head to toe Assessment , Medications. Response: After interactions and interventions patient responded in the following manner, Calm , Compliant ,Cooperative. Continue to assess behaviors and condition will continue to monitor throughout the shift as needed. Patient educated on ADL's, and hand hygiene. Plan: Continue to monitor Master Treatment Plan for patient's progress toward short term goals of Improved Mood, Decreased Agitation, [facility] goals to return to previous living setting vs placement. Continue to assess patient for changes in above assessment. Monitor for medication needs, pain, and safety concerns. Hourly rounding performed to ensure safe environment.
[2017-07-27 15:58] VITALS: BP 120/51
--- NOTE | 2017-07-27 20:01 | PDOC ---
Exam Note: Michael Note: Please also refer to the separate dictated note~for this date of service dictated separately.~Patient seen individually. Discussed the patient with Nursing staff reviewed the chart.~Reviewed interim history and current functioning. Reviewed vital signs,~Labs/ Radiology~and current medications noted below. Continue current treatment with the changes noted in the dictated addendum note Assessment: Vital Signs: Vital Signs Date Time Temp Pulse Resp B/P (MAP) Pulse Ox O2 Delivery O2 Flow Rate FiO2 07/27/17 18:36 16 96 07/27/17 15:58 97.1 82 120/51 (74) 07/26/17 20:38 Room Air I&O Intake and Output 07/27/17 07:00 Intake Total 720 ml Balance 720 ml Intake Oral 720 ml # Bowel Movements 2 Current Medications: Meds: Current Medications Sodium Chloride 1,000 ml @ 1,000 mls/hr Q1H IV Last administered on 07/23/17 18:00; Start 07/23/17 at 18:00; Stop 07/23/17 at 18:59; Status DC Potassium Chloride (KCl Oral Soln) 40 meq 1X STAT PO Last administered on at 20:06; Start 07/23/17 at 19:45; Stop 07/23/17 at 19:48; Status DC Cephalexin HCl (Keflex) 500 mg 1X ONCE PO Last administered on 07/23/17 20:10 ; Start 07/23/17 at 20:15; Stop 07/23/17 at 20:16; Status DC Cephalexin HCl (Keflex) 500 mg TID PO Last administered on 07/25/17at 19:45; Start 07/24/17 at 09:00; Stop 07/26/17 at 18:23; Status DC Aripiprazole (Abilify) 5 mg DAILY PO Last administered on 07/26/17at 08:07; Start 07/24/17 at 09:00; Stop 07/26/17 at 19:19; Status DC Benztropine Mesylate (Cogentin) 0.5 mg BID PO Last administered on 07/25/17at 19 :45; Start 07/23/17 at 21:00; Stop 07/25/17 at 21:10; Status DC Clonazepam (KlonoPIN) 0.5 mg BID PO Last administered on 2/13/18at 09:02; Start 07/23/17 at 21:00 Trazodone HCl (Desyrel) 150 mg QHS PO Last administered on 07/26/17 19:36; Start 07/23/17 at 21:00 Hydroxyzine HCl (Atarax) 50 mg PRN Q6HRS PRN PO ANXIETY/AGITATION; Start at 21:00 Acetaminophen/ Codeine Phosphate (Tylenol #3) 1 tab QID PO Last administered on 07/27/17 17:27; Start 07/23/17 at 21:00 Acetazolamide (Diamox) 250 mg BID PO ; Start 07/23/17 at 21:00; Stop 07/23/17 at 21:23; Status DC Famotidine (Pepcid) 20 mg BID PO Last administered on 07/27/17 09:02; Start at 21:00 Furosemide (Lasix) 40 mg DAILY PO Last administered on 07/26/17 08:08; Start 07/24/17 at 09:00 Gabapentin (Neurontin) 300 mg TID PO Last administered on 07/27/17 13:24; Start 07/23/17 at 21:00 Albuterol/ Ipratropium (Duoneb) 3 ml PRN TID PRN NEB SHORTNESS OF BREATH; Start 07/23/17 at 21:00 Levetiracetam (Keppra) 250 mg BID PO Last administered on 07/27/17 09:03; Start 07/23/17 at 21:00 Levothyroxine Sodium (Synthroid) 75 mcg DAILY07 PO Last administered on 06:19; Start 07/24/17 at 07:00 Nystatin (Mycostatin) 1 nery PRN BID PRN TP RASH; Start 07/23/17 at 21:00 Polyethylene Glycol (miraLAX) 17 gm PRN DAILY PRN PO CONSTIPATION Last administered on 07/24/17 12:44; Start 07/24/17 at 09:00 Sennosides (Senna) 8.6 mg PRN DAILY PRN PO CONSTIPATION Last administered on 12:44; Start 07/23/17 at 21:00 Amylase/Lipase/ Protease (Zenpep 10,000) 1 cap TIDWMEALS PO Last administered on 07/27/17 17:27; Start 07/24/17 at 08:00 Al Hydroxide/Mg Hydroxide (Mylanta Plus Xs) 30 ml PRN Q4HRS PRN PO DYSPEPSIA; Start 07/23/17 at 21:15 Sodium Chloride (Jasmeet-5) 1 drop QID OU Last administered on 07/27/17 17:27; Start 07/23/17 at 21:00 Acetazolamide (Diamox) 250 mg BID PO Last administered on 07/27/17 09:03; Start 07/24/17 at 09:00 Lactobacillus Rhamnosus (Culturelle) 1 cap BID PO Last administered on 09:02; Start 07/24/17 at 21:00 Benztropine Mesylate (Cogentin) 0.5 mg DAILY PO Last administered on 07/27/17 09:03; Start 07/26/17 at 09:00 Divalproex Sodium (Depakote Er) 500 mg QHS PO Last administered on 07/26/17 19 :37; Start 07/25/17 at 21:30 Risperidone (RisperDAL) 0.5 mg HS PO Last administered on 07/26/17 19:39; Start 07/26/17 at 21:00 Active Scripts Active Reported Nystatin 15 Gm Oint...g. 1 Nery TP PRN BID PRN Keppra (Levetiracetam) 250 Mg Tablet 250 Mg PO BID Neurontin (Gabapentin) 300 Mg Capsule 300 Mg PO TID Jasmeet-128 (Sodium Chloride) 15 Ml Drops 1 Drop OU QID 30 Days Maalox Advanced Suspension (Mag Hydrox/Aluminum Hyd/Simeth) 355 Ml Oral.susp 30 Ml PO PRN Q4HRS PRN Pepcid (Famotidine) 20 Mg Tablet 20 Mg PO BID 30 Days Senokot (Sennosides) 8.6 Mg Tablet 8.6 Mg PO PRN DAILY PRN Miralax (Polyethylene Glycol 3350) 119 Gm Powder 17 Gm PO PRN DAILY PRN Duoneb 0.5-3(2.5) Mg/3 Ml (Albuterol/Ipratropium) 3 Ml Ampul.neb 3 Ml NEB PRN TID PRN Hydroxyzine Pamoate 50 Mg Capsule 50 Mg PO PRN Q6HRS PRN Trazodone Hcl 150 Mg Tablet 150 Mg PO QHS Paroxetine Hcl 30 Mg Tablet 30 Mg PO DAILY Levothyroxine Sodium 75 Mcg Tablet 75 Mcg PO DAILY07 Furosemide 40 Mg Tablet 40 Mg PO DAILY [place] 12,000 Units Capsule (Lipase/Protease/Amylase) 1 Each Capsule. 1 Cap PO TIDWMEALS Clonazepam 0.5 Mg Tablet 0.5 Mg PO BID Benztropine Mesylate 0.5 Mg Tablet 0.5 Mg PO BID Abilify (Aripiprazole) 5 Mg Tablet 5 Mg PO DAILY Acetazolamide 250 Mg Tablet 250 Mg PO BID Tylenol With Codeine #3 Tablet (Acetaminophen With Codeine) 1 Each Tablet 1 Tab PO QID I have reviewed the current psychotropics carefully including drug interactions. Risk benefit ratio favors no change other than as noted in my dictated progress note. Diagnosis: Problems: (1) Change in mental status (2) Anxiety disorder (3) Bipolar affective, mixed, sev w/ psych (4) Impulse control disorder (5) Schizoaffective disorder, chronic condition with acute exacerbation ULISSES EPPS MD Jul 27, 2017 20:01
[2017-07-27] MEDS: traZODone 150 MG TABLET. PO SCH (20:14)
[2017-07-27] MEDS: DIVALPROEX ER 500 MG TAB.ER.24H PO SCH (20:14)
[2017-07-27] MEDS: risperiDONE 0.5 MG TABLET. PO SCH (20:15)
--- NOTE | 2017-07-27 22:04 | PN ---
DATE: 07/26/2017 This late entry for 07/26/2016 covers elements not covered in my initial note of 07/26/2017. Met with the patient evening of 07/26/2017. SUBJECTIVE: The patient was seen by Dr. Burton and no further neurological recommendations noted. Main reason for consultation was since there had been a significant change in her mental status and confusion in the very recent past where she slept 6-1/4 hours previous evening. UA is negative. CT head is unremarkable. She talks in whispers, remained somewhat psychotic. No CV, , pulmonary, eye system symptoms on review. Reliability varies. MENTAL STATUS EXAM: Oriented to herself and situation. Speech, low in volume, difficult to understand, to keep my ear close to her face to hear anything. Abstraction fair, computation impaired, language function intact, attention span short. Mood and affect remain somewhat labile. LABORATORY DATA: Reviewed. IMPRESSION: Schizoaffective disorder, bipolar type, mixed with psychotic features; cognitive disorder, unspecified. PLAN: Change Abilify to Risperdal 0.5 mg p.o. at bedtime, continue. Rest unchanged. Valproic acid level will be checked on the . Maintain Depakote ER 500 mg at bedtime. Adjust to reach a therapeutic level. ULISSES EPPS MD DR: KEMAR/rashaun JOB#: [id number] / [id number]
--- NOTE | 2017-07-27 23:26 | NUR ---
Behavior Intervention Response and Plan: BIRP Note: Behavior: Assumed Care of patient, patient located in Hallway at shift change. Patient exhibited the following behavior Wandering, Restless, Disorganized. Brief assessment on rounds of vital signs, medication needs, lab studies, and pain. Treatment plan problems .1&2 Intervention: Patient assessed and the following interventions initiated safety checks 15 Minute Checks Cognitive Assessment , Head to toe Assessment , Medications. Response: After interactions and interventions patient responded in the following manner, Able to Focus on Task , Compliant ,Cooperative. Continue to assess behaviors and condition will continue to monitor throughout the shift as needed. Patient educated on ADL's, and hand hygiene. 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 Continue to assess patient for changes in above assessment. Monitor for medication needs, pain, and safety concerns. Hourly rounding performed to ensure safe environment.
[2017-07-28] MEDS: LEVOTHYROXINE 75 MCG TABLET PO SCH (06:06)
[2017-07-28 06:22] VITALS: BP 100/60
[2017-07-28] MEDS: LIPASE/PROTEAS/AMYLAS 10/34/55 CAPSULE.DR. PO SCH ×3 (08:48→17:27)
[2017-07-28] MEDS: levETIRAcetam 250 MG TABLET PO SCH ×2 (08:49→19:27)
[2017-07-28] MEDS: FAMOTIDINE 20 MG TABLET PO SCH ×2 (08:49→19:27)
[2017-07-28] MEDS: LACTOBACILLUS RHAMNOSUS GG 1 CAPSULE. PO SCH ×2 (08:49→19:27)
[2017-07-28] MEDS: BENZTROPINE MESYLATE 0.5 MG TABLET PO SCH (08:49)
[2017-07-28] MEDS: GABAPENTIN 300 MG CAPSULE. PO SCH ×3 (08:49→19:27)
[2017-07-28] MEDS: FUROSEMIDE 40 MG TABLET PO SCH (08:49)
[2017-07-28] MEDS: SODIUM CHLORIDE 5% OPHTH SOLUTION 15ML BOTTLE. OU SCH ×4 (08:51→19:31)
[2017-07-28] MEDS: acetaZOLAMIDE 250 MG TABLET PO SCH ×2 (08:51→19:31)
[2017-07-28] MEDS: ACETAMINOPHEN/CODEINE 300/30MG TABLET PO SCH ×4 (08:51→19:31)
[2017-07-28] MEDS: clonazePAM 0.5 MG TABLET PO SCH ×2 (08:51→20:14)
--- NOTE | 2017-07-28 11:15 | NUR ---
Behavior Intervention Response and Plan: BIRP Note: Behavior: Assumed Care of patient, patient located in Day Room at shift change. Patient exhibited the following behavior Interactive, Disorganized, Calm. Brief assessment on rounds of vital signs, medication needs, lab studies, and pain. Treatment plan problems 1-2. Intervention: Patient assessed and the following interventions initiated safety checks 15 Minute Checks Cognitive Assessment , Head to toe Assessment , Medications. Response: After interactions and interventions patient responded in the following manner, Calm , Compliant ,Cooperative. Continue to assess behaviors and condition will continue to monitor throughout the shift as needed. Patient educated on ADL's, and hand hygiene. 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 Continue to assess patient for changes in above assessment. Monitor for medication needs, pain, and safety concerns. Hourly rounding performed to ensure safe environment.
--- NOTE | 2017-07-28 15:00 | NUR ---
WEEKLY THERAPEUTIC RECREATION NOTE Date of Admission: 07/23/2017 Date of AT Assessment: 07/26/2017 Goal aimed: to increase sensory stimulation Initial goal: Pt. will participate in all individual and group sessions focused on sensory stimulation. Weekly progress towards goal: did not meet Group participation level:minimal Behaviors observed: wandering, whispering, takes things that aren't hers, yelling at times, difficult to follow directions. difficulty sitting in one place for very long. Plan: no changes to goal
[2017-07-28 16:44] VITALS: BP 94/53
--- NOTE | 2017-07-28 19:06 | PDOC ---
Exam Note: Michael Note: Please also refer to the separate dictated note~for this date of service dictated separately.~Patient seen individually. Discussed the patient with Nursing staff reviewed the chart.~Reviewed interim history and current functioning. Reviewed vital signs,~Labs/ Radiology~and current medications noted below. Continue current treatment with the changes noted in the dictated addendum note Assessment: Vital Signs: Vital Signs Date Time Temp Pulse Resp B/P (MAP) Pulse Ox O2 Delivery O2 Flow Rate FiO2 07/28/17 17:00 22 95 07/28/17 16:44 99.2 69 94/53 (67) 07/28/17 06:22 Room Air I&O Intake and Output 07/28/17 07:00 Intake Total 960 ml Balance 960 ml Intake Oral 960 ml Current Medications: Meds: Current Medications Sodium Chloride 1,000 ml @ 1,000 mls/hr Q1H IV Last administered on 07/23/17 18:00; Start 07/23/17 at 18:00; Stop 07/23/17 at 18:59; Status DC Potassium Chloride (KCl Oral Soln) 40 meq 1X STAT PO Last administered on at 20:06; Start 07/23/17 at 19:45; Stop 07/23/17 at 19:48; Status DC Cephalexin HCl (Keflex) 500 mg 1X ONCE PO Last administered on 07/23/17at 20:10 ; Start 07/23/17 at 20:15; Stop 07/23/17 at 20:16; Status DC Cephalexin HCl (Keflex) 500 mg TID PO Last administered on 07/25/17at 19:45; Start 07/24/17 at 09:00; Stop 07/26/17 at 18:23; Status DC Aripiprazole (Abilify) 5 mg DAILY PO Last administered on 07/26/17at 08:07; Start 07/24/17 at 09:00; Stop 07/26/17 at 19:19; Status DC Benztropine Mesylate (Cogentin) 0.5 mg BID PO Last administered on 07/25/17at 19 :45; Start 07/23/17 at 21:00; Stop 07/25/17 at 21:10; Status DC Clonazepam (KlonoPIN) 0.5 mg BID PO Last administered on 07/28/17at 08:51; Start 07/23/17 at 21:00; Stop 07/28/17 at 18:19; Status DC Trazodone HCl (Desyrel) 150 mg QHS PO Last administered on 07/27/17 20:14; Start 07/23/17 at 21:00 Hydroxyzine HCl (Atarax) 50 mg PRN Q6HRS PRN PO ANXIETY/AGITATION; Start at 21:00 Acetaminophen/ Codeine Phosphate (Tylenol #3) 1 tab QID PO Last administered on 07/28/17 13:13; Start 07/23/17 at 21:00 Acetazolamide (Diamox) 250 mg BID PO ; Start 07/23/17 at 21:00; Stop 07/23/17 at 21:23; Status DC Famotidine (Pepcid) 20 mg BID PO Last administered on 07/28/17 08:49; Start at 21:00 Furosemide (Lasix) 40 mg DAILY PO Last administered on 07/28/17 08:49; Start 07/24/17 at 09:00 Gabapentin (Neurontin) 300 mg TID PO Last administered on 07/28/17 13:13; Start 07/23/17 at 21:00 Albuterol/ Ipratropium (Duoneb) 3 ml PRN TID PRN NEB SHORTNESS OF BREATH; Start 07/23/17 at 21:00 Levetiracetam (Keppra) 250 mg BID PO Last administered on 07/28/17 08:49; Start 07/23/17 at 21:00 Levothyroxine Sodium (Synthroid) 75 mcg DAILY07 PO Last administered on at 06:06; Start 07/24/17 at 07:00 Nystatin (Mycostatin) 1 nery PRN BID PRN TP RASH; Start 07/23/17 at 21:00 Polyethylene Glycol (miraLAX) 17 gm PRN DAILY PRN PO CONSTIPATION Last administered on 07/24/17at 12:44; Start 07/24/17 at 09:00 Sennosides (Senna) 8.6 mg PRN DAILY PRN PO CONSTIPATION Last administered on 12:44; Start 07/23/17 at 21:00 Amylase/Lipase/ Protease (Zenpep 10,000) 1 cap TIDWMEALS PO Last administered on 07/28/17at 17:27; Start 07/24/17 at 08:00 Al Hydroxide/Mg Hydroxide (Mylanta Plus Xs) 30 ml PRN Q4HRS PRN PO DYSPEPSIA; Start 07/23/17 at 21:15 Sodium Chloride (Jasmeet-5) 1 drop QID OU Last administered on 07/28/17at 17:27; Start 07/23/17 at 21:00 Acetazolamide (Diamox) 250 mg BID PO Last administered on 07/28/17 08:51; Start 07/24/17 at 09:00 Lactobacillus Rhamnosus (Culturelle) 1 cap BID PO Last administered on 08:49; Start 07/24/17 at 21:00 Benztropine Mesylate (Cogentin) 0.5 mg DAILY PO Last administered on 07/28/17at 08:49; Start 07/26/17 at 09:00 Divalproex Sodium (Depakote Er) 500 mg QHS PO Last administered on 07/27/17at 20 :14; Start 07/25/17 at 21:30 Risperidone (RisperDAL) 0.5 mg HS PO Last administered on 07/27/17at 20:15; Start 07/26/17 at 21:00 Clonazepam (KlonoPIN) 0.25 mg BID PO ; Start 07/28/17 at 21:00; Stop 08/01/17 at 20:59 Clonazepam (KlonoPIN) 0.25 mg DAILY PO ; Start 08/01/17 at 09:00; Stop 08/04/17 at 08:59 Active Scripts Active Reported Nystatin 15 Gm Oint...g. 1 Nery TP PRN BID PRN Keppra (Levetiracetam) 250 Mg Tablet 250 Mg PO BID Neurontin (Gabapentin) 300 Mg Capsule 300 Mg PO TID Jasmeet-128 (Sodium Chloride) 15 Ml Drops 1 Drop OU QID 30 Days Maalox Advanced Suspension (Mag Hydrox/Aluminum Hyd/Simeth) 355 Ml Oral.susp 30 Ml PO PRN Q4HRS PRN Pepcid (Famotidine) 20 Mg Tablet 20 Mg PO BID 30 Days Senokot (Sennosides) 8.6 Mg Tablet 8.6 Mg PO PRN DAILY PRN Miralax (Polyethylene Glycol 3350) 119 Gm Powder 17 Gm PO PRN DAILY PRN Duoneb 0.5-3(2.5) Mg/3 Ml (Albuterol/Ipratropium) 3 Ml Ampul.neb 3 Ml NEB PRN TID PRN Hydroxyzine Pamoate 50 Mg Capsule 50 Mg PO PRN Q6HRS PRN Trazodone Hcl 150 Mg Tablet 150 Mg PO QHS Paroxetine Hcl 30 Mg Tablet 30 Mg PO DAILY Levothyroxine Sodium 75 Mcg Tablet 75 Mcg PO DAILY07 Furosemide 40 Mg Tablet 40 Mg PO DAILY Creon 12,000 Units Capsule (Lipase/Protease/Amylase) 1 Each Capsule.dr 1 Cap PO TIDWMEALS Clonazepam 0.5 Mg Tablet 0.5 Mg PO BID Benztropine Mesylate 0.5 Mg Tablet 0.5 Mg PO BID Abilify (Aripiprazole) 5 Mg Tablet 5 Mg PO DAILY Acetazolamide 250 Mg Tablet 250 Mg PO BID Tylenol With Codeine #3 Tablet (Acetaminophen With Codeine) 1 Each Tablet 1 Tab PO QID I have reviewed the current psychotropics carefully including drug interactions. Risk benefit ratio favors no change other than as noted in my dictated progress note. Diagnosis: Problems: (1) Change in mental status (2) Anxiety disorder (3) Bipolar affective, mixed, sev w/ psych (4) Impulse control disorder (5) Schizoaffective disorder, chronic condition with acute exacerbation ULISSES EPPS MD Jul 28, 2017 19:06
[2017-07-28] MEDS: DIVALPROEX ER 500 MG TAB.ER.24H PO SCH (19:27)
[2017-07-28] MEDS: traZODone 150 MG TABLET. PO SCH (19:28)
[2017-07-28] MEDS: risperiDONE 0.5 MG TABLET. PO SCH (19:28)
--- NOTE | 2017-07-28 21:31 | NUR ---
Behavior Intervention Response and Plan: BIRP Note: Behavior: Assumed Care of patient, patient located in Day Room at shift change. Patient exhibited the following behavior Drowsy, Calm, Disorganized. Brief assessment on rounds of vital signs, medication needs, lab studies, and pain. Treatment plan problems .1&2 Intervention: Patient assessed and the following interventions initiated safety checks 15 Minute Checks Cognitive Assessment , Head to toe Assessment , Medications. Response: After interactions and interventions patient responded in the following manner, Able to Focus on Task , Cooperative ,Compliant. Continue to assess behaviors and condition will continue to monitor throughout the shift as needed. Patient educated on ADL's, and hand hygiene. Plan: Continue to monitor Master Treatment Plan for patient's progress toward short term goals of Improved Mood, Decreased Anxiety, half-way goals to return to previous living setting vs placement. Continue to assess patient for changes in above assessment. Monitor for medication needs, pain, and safety concerns. Hourly rounding performed to ensure safe environment.
--- NOTE | 2017-07-28 22:42 | PN ---
DATE: 07/27/2017 This late entry, 07/27/2017, covers elements not covered in my initial note of 07/27/2017. Met with the patient in the evening of 07/27/2017. SUBJECTIVE: The patient slept 6-1/4 hours previous evening, remains somewhat disorganized, confused, which is a dramatic change, reportedly, over the last 3-4 weeks. She is alert, oriented to her name and birthday, but little else. Per nursing report, wandering at times. No CV, , pulmonary, eye, ENT system symptoms on review. Reliability varies. MENTAL STATUS EXAM: Oriented to herself and situation. Speech, low in volume, whispering. Abstraction fair, computation impaired, language function intact, attention span short. Memory is impaired. IMPRESSION: Schizoaffective disorder, bipolar type; cognitive disorder, unspecified. PLAN: CT head is unremarkable. Continue current psychotropics. Depakote was increased for her bipolar symptoms. Labs to be done on 07/29/2017. Adjust further thereafter to reach therapeutic level. MAN Garret EPPS MD DR: [email or web address] JOB#: [id number] / [id number]
[2017-07-29] MEDS: LEVOTHYROXINE 75 MCG TABLET PO SCH (05:55)
[2017-07-29 06:02] VITALS: BP 102/59
[2017-07-29] MEDS: LACTOBACILLUS RHAMNOSUS GG 1 CAPSULE. PO SCH ×2 (09:07→20:10)
[2017-07-29] MEDS: FUROSEMIDE 40 MG TABLET PO SCH (09:07)
[2017-07-29] MEDS: GABAPENTIN 300 MG CAPSULE. PO SCH ×3 (09:07→20:12)
[2017-07-29] MEDS: FAMOTIDINE 20 MG TABLET PO SCH ×2 (09:07→20:12)
[2017-07-29] MEDS: levETIRAcetam 250 MG TABLET PO SCH ×2 (09:07→20:12)
[2017-07-29] MEDS: LIPASE/PROTEAS/AMYLAS 10/34/55 CAPSULE.DR. PO SCH ×3 (09:07→17:26)
[2017-07-29] MEDS: BENZTROPINE MESYLATE 0.5 MG TABLET PO SCH (09:07)
[2017-07-29] MEDS: clonazePAM 0.5 MG TABLET PO SCH ×2 (09:11→20:14)
[2017-07-29] MEDS: acetaZOLAMIDE 250 MG TABLET PO SCH (09:11)
[2017-07-29] MEDS: SODIUM CHLORIDE 5% OPHTH SOLUTION 15ML BOTTLE. OU SCH ×4 (09:11→20:11)
[2017-07-29] MEDS: ACETAMINOPHEN/CODEINE 300/30MG TABLET PO SCH ×4 (09:11→20:14)
[2017-07-29 09:42] LABS: BASO % 0 % (0-3); EOS # 0.1 x10^3/uL (0.0-0.7); EOS % 1 % (0-3); HEMATOCRIT 39.6 % (36.0-47.0); HEMOGLOBIN 12.6 g/dL (12.0-15.5); LYMPH # 1.1 x10^3/uL (1.0-4.8); LYMPH % 12 % (24-48); MEAN CORPUSCULAR HEMOGLOBIN 24 pg (25-35); MEAN CORPUSCULAR HGB CONC 32 g/dL (31-37); MEAN CORPUSCULAR VOLUME 76 fL (79-100); MONO # 0.7 x10^3/uL (0.0-1.1); MONO % 7 % (0-9); NEUT # 7.3 x10^3uL (1.8-7.7); NEUT % 80 % (31-73); PLATELET COUNT 294 x10^3/uL (140-400); RED BLOOD COUNT 5.19 x10^6/uL (3.50-5.40); RED CELL DISTRIBUTION WIDTH 16.2 % (11.5-14.5); WHITE BLOOD COUNT 9.2 x10^3/uL (4.0-11.0)
[2017-07-29 09:56] LABS: ALBUMIN/GLOBULIN RATIO 0.6 (1.0-1.7); ALK PHOS 159 U/L (46-116); ALT (SGPT) 14 U/L (14-59); ANION GAP 12 (6-14); AST (SGOT) 14 U/L (15-37); BLOOD UREA NITROGEN 18 mg/dL (7-20); BUN/CREATININE RATIO 26 (6-20); CALCIUM 9.4 mg/dL (8.5-10.1); CARBON DIOXIDE 21 mmol/L (21-32); CHLORIDE 108 mmol/L (98-107); CREATININE 0.7 mg/dL (0.6-1.0); GFR 86.9; GLUCOSE 127 mg/dL (70-99); MAGNESIUM 2.1 mg/dL (1.8-2.4); POTASSIUM 3.3 mmol/L (3.5-5.1); SODIUM 141 mmol/L (136-145); TOTAL BILIRUBIN 0.3 mg/dL (0.2-1.0)
[2017-07-29 09:59] LABS: VAL ACID 39 mcg/mL (50-100)
--- NOTE | 2017-07-29 12:57 | NUR ---
Behavior Intervention Response and Plan: BIRP Note: Behavior: Assumed Care of patient, patient located in Day Room at shift change. Patient exhibited the following behavior Calm, Disorganized, Compliant. Brief assessment on rounds of vital signs, medication needs, lab studies, and pain. Treatment plan problems 1-2. Intervention: Patient assessed and the following interventions initiated safety checks 15 Minute Checks Cognitive Assessment , Head to toe Assessment , Medications. Response: After interactions and interventions patient responded in the following manner, Disorganized , Wandering ,Cooperative. Continue to assess behaviors and condition will continue to monitor throughout the shift as needed. Patient educated on ADL's, and hand hygiene. 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 Continue to assess patient for changes in above assessment. Monitor for medication needs, pain, and safety concerns. Hourly rounding performed to ensure safe environment.
[2017-07-29 15:36] VITALS: BP 97/46
--- NOTE | 2017-07-29 19:32 | PDOC ---
Exam Note: Michael Note: Please also refer to the separate dictated note~for this date of service dictated separately.~Patient seen individually. Discussed the patient with Nursing staff reviewed the chart.~Reviewed interim history and current functioning. Reviewed vital signs,~Labs/ Radiology~and current medications noted below. Continue current treatment with the changes noted in the dictated addendum note Assessment: Vital Signs: Vital Signs Date Time Temp Pulse Resp B/P (MAP) Pulse Ox O2 Delivery O2 Flow Rate FiO2 07/29/17 18:35 18 98 07/29/17 15:36 98.2 91 97/46 (63) 07/28/17 20:37 Room Air I&O Intake and Output 07/29/17 07:00 Intake Total 800 ml Balance 800 ml Intake Oral 800 ml Labs: Laboratory Tests Test 07/29/17 09:22 White Blood Count 9.2 x10^3/uL (4.0-11.0) Red Blood Count 5.19 x10^6/uL (3.50-5.40) Hemoglobin 12.6 g/dL (12.0-15.5) Hematocrit 39.6 % (36.0-47.0) Mean Corpuscular Volume 76 fL (79-100) L Mean Corpuscular Hemoglobin 24 pg (25-35) L Mean Corpuscular Hemoglobin Concent 32 g/dL (31-37) Red Cell Distribution Width 16.2 % (11.5-14.5) H Platelet Count 294 x10^3/uL (140-400) Neutrophils (%) (Auto) 80 % (31-73) H Lymphocytes (%) (Auto) 12 % (24-48) L Monocytes (%) (Auto) 7 % (0-9) Eosinophils (%) (Auto) 1 % (0-3) Basophils (%) (Auto) 0 % (0-3) Neutrophils # (Auto) 7.3 x10^3uL (1.8-7.7) Lymphocytes # (Auto) 1.1 x10^3/uL (1.0-4.8) Monocytes # (Auto) 0.7 x10^3/uL (0.0-1.1) Eosinophils # (Auto) 0.1 x10^3/uL (0.0-0.7) Basophils # (Auto) 0.0 x10^3/uL (0.0-0.2) Sodium Level 141 mmol/L (136-145) Potassium Level 3.3 mmol/L (3.5-5.1) L Chloride Level 108 mmol/L (98-107) H Carbon Dioxide Level 21 mmol/L (21-32) Anion Gap 12 (6-14) Blood Urea Nitrogen 18 mg/dL (7-20) Creatinine 0.7 mg/dL (0.6-1.0) Estimated GFR (Cockcroft-Gault) 86.9 BUN/Creatinine Ratio 26 (6-20) H Glucose Level 127 mg/dL (70-99) H Calcium Level 9.4 mg/dL (8.5-10.1) Magnesium Level 2.1 mg/dL (1.8-2.4) Total Bilirubin 0.3 mg/dL (0.2-1.0) Aspartate Amino Transferase (AST) 14 U/L (15-37) L Alanine Aminotransferase (ALT) 14 U/L (14-59) Alkaline Phosphatase 159 U/L (46-116) H Total Protein 8.0 g/dL (6.4-8.2) Albumin 3.0 g/dL (3.4-5.0) L Albumin/Globulin Ratio 0.6 (1.0-1.7) L Valproic Acid Level 39 mcg/mL (50-100) L Valproic Acid Last Dose Date 07/28/2017 Valproic Acid Last Dose Time 2100 Current Medications: Meds: Current Medications Sodium Chloride 1,000 ml @ 1,000 mls/hr Q1H IV Last administered on 07/23/17at 18:00; Start 07/23/17 at 18:00; Stop 07/23/17 at 18:59; Status DC Potassium Chloride (KCl Oral Soln) 40 meq 1X STAT PO Last administered on at 20:06; Start 07/23/17 at 19:45; Stop 07/23/17 at 19:48; Status DC Cephalexin HCl (Keflex) 500 mg 1X ONCE PO Last administered on 07/23/17at 20:10 ; Start 07/23/17 at 20:15; Stop 07/23/17 at 20:16; Status DC Cephalexin HCl (Keflex) 500 mg TID PO Last administered on 07/25/17at 19:45; Start 07/24/17 at 09:00; Stop 07/26/17 at 18:23; Status DC Aripiprazole (Abilify) 5 mg DAILY PO Last administered on 07/26/17at 08:07; Start 07/24/17 at 09:00; Stop 07/26/17 at 19:19; Status DC Benztropine Mesylate (Cogentin) 0.5 mg BID PO Last administered on 07/25/17at 19 :45; Start 07/23/17 at 21:00; Stop 07/25/17 at 21:10; Status DC Clonazepam (KlonoPIN) 0.5 mg BID PO Last administered on 07/28/17at 08:51; Start 07/23/17 at 21:00; Stop 07/28/17 at 18:19; Status DC Trazodone HCl (Desyrel) 150 mg QHS PO Last administered on 07/28/17at 19:28; Start 07/23/17 at 21:00 Hydroxyzine HCl (Atarax) 50 mg PRN Q6HRS PRN PO ANXIETY/AGITATION; Start at 21:00 Acetaminophen/ Codeine Phosphate (Tylenol #3) 1 tab QID PO Last administered on 07/29/17at 17:27; Start 07/23/17 at 21:00 Acetazolamide (Diamox) 250 mg BID PO ; Start 07/23/17 at 21:00; Stop 07/23/17 at 21:23; Status DC Famotidine (Pepcid) 20 mg BID PO Last administered on 07/29/17at 09:07; Start at 21:00 Furosemide (Lasix) 40 mg DAILY PO Last administered on 07/29/17at 09:07; Start 07/24/17 at 09:00; Stop 07/29/17 at 18:49; Status DC Gabapentin (Neurontin) 300 mg TID PO Last administered on 07/29/17at 13:06; Start 07/23/17 at 21:00 Albuterol/ Ipratropium (Duoneb) 3 ml PRN TID PRN NEB SHORTNESS OF BREATH; Start 07/23/17 at 21:00 Levetiracetam (Keppra) 250 mg BID PO Last administered on 07/29/17at 09:07; Start 07/23/17 at 21:00 Levothyroxine Sodium (Synthroid) 75 mcg DAILY07 PO Last administered on at 05:55; Start 07/24/17 at 07:00 Nystatin (Mycostatin) 1 nery PRN BID PRN TP RASH; Start 07/23/17 at 21:00 Polyethylene Glycol (miraLAX) 17 gm PRN DAILY PRN PO CONSTIPATION Last administered on 07/24/17 12:44; Start 07/24/17 at 09:00 Sennosides (Senna) 8.6 mg PRN DAILY PRN PO CONSTIPATION Last administered on 12:44; Start 07/23/17 at 21:00 Amylase/Lipase/ Protease (Zenpep 10,000) 1 cap TIDWMEALS PO Last administered on 07/29/17 17:26; Start 07/24/17 at 08:00 Al Hydroxide/Mg Hydroxide (Mylanta Plus Xs) 30 ml PRN Q4HRS PRN PO DYSPEPSIA; Start 07/23/17 at 21:15 Sodium Chloride (Jasmeet-5) 1 drop QID OU Last administered on 07/29/17 17:27; Start 07/23/17 at 21:00 Acetazolamide (Diamox) 250 mg BID PO Last administered on 07/29/17 09:11; Start 07/24/17 at 09:00; Stop 07/29/17 at 18:49; Status DC Lactobacillus Rhamnosus (Culturelle) 1 cap BID PO Last administered on 09:07; Start 07/24/17 at 21:00 Benztropine Mesylate (Cogentin) 0.5 mg DAILY PO Last administered on 07/29/17 09:07; Start 07/26/17 at 09:00 Divalproex Sodium (Depakote Er) 500 mg QHS PO Last administered on 07/28/17 19 :27; Start 07/25/17 at 21:30; Stop 07/29/17 at 19:19; Status DC Risperidone (RisperDAL) 0.5 mg HS PO Last administered on 07/28/17 19:28; Start 07/26/17 at 21:00 Clonazepam (KlonoPIN) 0.25 mg BID PO Last administered on 2/15/18at 09:11; Start 07/28/17 at 21:00; Stop 08/01/17 at 20:59 Clonazepam (KlonoPIN) 0.25 mg DAILY PO ; Start 08/01/17 at 09:00; Stop 08/04/17 at 08:59 Divalproex Sodium (Depakote Er) 1,000 mg QHS PO ; Start 07/29/17 at 21:00; Status UNV Active Scripts Active Reported Nystatin 15 Gm Oint...g. 1 Nery TP PRN BID PRN Keppra (Levetiracetam) 250 Mg Tablet 250 Mg PO BID Neurontin (Gabapentin) 300 Mg Capsule 300 Mg PO TID Jasmeet-128 (Sodium Chloride) 15 Ml Drops 1 Drop OU QID 30 Days Maalox Advanced Suspension (Mag Hydrox/Aluminum Hyd/Simeth) 355 Ml Oral.susp 30 Ml PO PRN Q4HRS PRN Pepcid (Famotidine) 20 Mg Tablet 20 Mg PO BID 30 Days Senokot (Sennosides) 8.6 Mg Tablet 8.6 Mg PO PRN DAILY PRN Miralax (Polyethylene Glycol 3350) 119 Gm Powder 17 Gm PO PRN DAILY PRN Duoneb 0.5-3(2.5) Mg/3 Ml (Albuterol/Ipratropium) 3 Ml Ampul.neb 3 Ml NEB PRN TID PRN Hydroxyzine Pamoate 50 Mg Capsule 50 Mg PO PRN Q6HRS PRN Trazodone Hcl 150 Mg Tablet 150 Mg PO QHS Paroxetine Hcl 30 Mg Tablet 30 Mg PO DAILY Levothyroxine Sodium 75 Mcg Tablet 75 Mcg PO DAILY07 Furosemide 40 Mg Tablet 40 Mg PO DAILY Creon 12,000 Units Capsule (Lipase/Protease/Amylase) 1 Each Capsule. 1 Cap PO TIDWMEALS Clonazepam 0.5 Mg Tablet 0.5 Mg PO BID Benztropine Mesylate 0.5 Mg Tablet 0.5 Mg PO BID Abilify (Aripiprazole) 5 Mg Tablet 5 Mg PO DAILY Acetazolamide 250 Mg Tablet 250 Mg PO BID Tylenol With Codeine #3 Tablet (Acetaminophen With Codeine) 1 Each Tablet 1 Tab PO QID I have reviewed the current psychotropics carefully including drug interactions. Risk benefit ratio favors no change other than as noted in my dictated progress note. Diagnosis: Problems: (1) Change in mental status (2) Anxiety disorder (3) Bipolar affective, mixed, sev w/ psych (4) Impulse control disorder (5) Schizoaffective disorder, chronic condition with acute exacerbation ULISSES EPPS MD Jul 29, 2017 19:32
[2017-07-29] MEDS: DIVALPROEX ER 500 MG TAB.ER.24H PO SCH (20:11)
[2017-07-29] MEDS: traZODone 150 MG TABLET. PO SCH (20:11)
[2017-07-29] MEDS: risperiDONE 0.5 MG TABLET. PO SCH (20:12)
--- NOTE | 2017-07-29 21:34 | NUR ---
Behavior Intervention Response and Plan: BIRP Note: Behavior: Assumed Care of patient, patient located in Day Room at shift change. Patient exhibited the following behavior Calm, Withdrawn, Disorganized. Brief assessment on rounds of vital signs, medication needs, lab studies, and pain. Treatment plan problems .1&2 Intervention: Patient assessed and the following interventions initiated safety checks 15 Minute Checks Cognitive Assessment , Head to toe Assessment , Medications. Response: After interactions and interventions patient responded in the following manner, Compliant , Cooperative ,Disorganized. Continue to assess behaviors and condition will continue to monitor throughout the shift as needed. Patient educated on ADL's, and hand hygiene. Plan: Continue to monitor Master Treatment Plan for patient's progress toward short term goals of Improved Mood, Decreased Anxiety, watermaster goals to return to previous living setting vs placement. Continue to assess patient for changes in above assessment. Monitor for medication needs, pain, and safety concerns. Hourly rounding performed to ensure safe environment.
[2017-07-30] MEDS: LEVOTHYROXINE 75 MCG TABLET PO SCH (05:48)
[2017-07-30 05:59] VITALS: BP_SYST 82
[2017-07-30] MEDS: levETIRAcetam 250 MG TABLET PO SCH ×2 (07:51→19:40)
[2017-07-30] MEDS: FAMOTIDINE 20 MG TABLET PO SCH ×2 (07:51→19:39)
[2017-07-30] MEDS: LIPASE/PROTEAS/AMYLAS 10/34/55 CAPSULE.DR. PO SCH ×3 (07:51→17:53)
[2017-07-30] MEDS: GABAPENTIN 300 MG CAPSULE. PO SCH ×3 (07:51→19:39)
[2017-07-30] MEDS: BENZTROPINE MESYLATE 0.5 MG TABLET PO SCH (07:51)
[2017-07-30] MEDS: LACTOBACILLUS RHAMNOSUS GG 1 CAPSULE. PO SCH ×2 (07:51→19:39)
[2017-07-30] MEDS: SODIUM CHLORIDE 5% OPHTH SOLUTION 15ML BOTTLE. OU SCH ×4 (07:53→19:43)
[2017-07-30] MEDS: ACETAMINOPHEN/CODEINE 300/30MG TABLET PO SCH ×4 (07:54→19:39)
[2017-07-30] MEDS: clonazePAM 0.5 MG TABLET PO SCH ×2 (07:55→19:42)
--- NOTE | 2017-07-30 09:39 | NUR ---
Behavior Intervention Response and Plan: BIRP Note: Behavior: Assumed Care of patient, patient located in Hallway at shift change. Patient exhibited the following behavior Calm, Wandering, Disorganized. Brief assessment on rounds of vital signs, medication needs, lab studies, and pain. Treatment plan problems . Intervention: Patient assessed and the following interventions initiated safety checks 15 Minute Checks Cognitive Assessment , Head to toe Assessment , Medications. Response: After interactions and interventions patient responded in the following manner, Disorganized , Wandering ,Compliant. Continue to assess behaviors and condition will continue to monitor throughout the shift as needed. Patient educated on ADL's, and hand hygiene. Plan: Continue to monitor Master Treatment Plan for patient's progress toward short term goals of Decreased Agitation, Decreased Aggression, penitentiary goals to return to previous living setting vs placement. Continue to assess patient for changes in above assessment. Monitor for medication needs, pain, and safety concerns. Hourly rounding performed to ensure safe environment.
--- NOTE | 2017-07-30 11:44 | NUR ---
SW called and spoke with facility, SW will provide updates via fax per facility request at this time.
[2017-07-30 16:06] VITALS: BP 113/72
--- NOTE | 2017-07-30 16:46 | NUR ---
pt up adl to meals. wanders in halls. compliant with meds and cares. pt spoke with father on phone. pt actually spoke to father on phone and spoke in a normal tone of voice.
[2017-07-30] MEDS: DIVALPROEX ER 500 MG TAB.ER.24H PO SCH (19:39)
[2017-07-30] MEDS: risperiDONE 0.5 MG TABLET. PO SCH (19:40)
[2017-07-30] MEDS: traZODone 150 MG TABLET. PO SCH (19:40)
--- NOTE | 2017-07-30 19:41 | PDOC ---
Exam Note: Michael Note: Please also refer to the separate dictated note~for this date of service dictated separately.~Patient seen individually. Discussed the patient with Nursing staff reviewed the chart.~Reviewed interim history and current functioning. Reviewed vital signs,~Labs/ Radiology~and current medications noted below. Continue current treatment with the changes noted in the dictated addendum note Assessment: Vital Signs: Vital Signs Date Time Temp Pulse Resp B/P (MAP) Pulse Ox O2 Delivery O2 Flow Rate FiO2 07/30/17 16:06 98.4 83 20 113/72 (86) 95 07/29/17 21:14 Room Air I&O Intake and Output 07/30/17 07:00 Intake Total 840 ml Balance 840 ml Intake Oral 840 ml Current Medications: Meds: Current Medications Sodium Chloride 1,000 ml @ 1,000 mls/hr Q1H IV Last administered on 07/23/17 18:00; Start 07/23/17 at 18:00; Stop 07/23/17 at 18:59; Status DC Potassium Chloride (KCl Oral Soln) 40 meq 1X STAT PO Last administered on at 20:06; Start 07/23/17 at 19:45; Stop 07/23/17 at 19:48; Status DC Cephalexin HCl (Keflex) 500 mg 1X ONCE PO Last administered on 07/23/17 20:10 ; Start 07/23/17 at 20:15; Stop 07/23/17 at 20:16; Status DC Cephalexin HCl (Keflex) 500 mg TID PO Last administered on 07/25/17at 19:45; Start 07/24/17 at 09:00; Stop 07/26/17 at 18:23; Status DC Aripiprazole (Abilify) 5 mg DAILY PO Last administered on 07/26/17at 08:07; Start 07/24/17 at 09:00; Stop 07/26/17 at 19:19; Status DC Benztropine Mesylate (Cogentin) 0.5 mg BID PO Last administered on 07/25/17at 19 :45; Start 07/23/17 at 21:00; Stop 07/25/17 at 21:10; Status DC Clonazepam (KlonoPIN) 0.5 mg BID PO Last administered on 07/28/17at 08:51; Start 07/23/17 at 21:00; Stop 07/28/17 at 18:19; Status DC Trazodone HCl (Desyrel) 150 mg QHS PO Last administered on 07/29/17at 20:11; Start 07/23/17 at 21:00 Hydroxyzine HCl (Atarax) 50 mg PRN Q6HRS PRN PO ANXIETY/AGITATION; Start at 21:00 Acetaminophen/ Codeine Phosphate (Tylenol #3) 1 tab QID PO Last administered on 07/30/17at 13:22; Start 07/23/17 at 21:00 Acetazolamide (Diamox) 250 mg BID PO ; Start 07/23/17 at 21:00; Stop 07/23/17 at 21:23; Status DC Famotidine (Pepcid) 20 mg BID PO Last administered on 07/30/17at 07:51; Start at 21:00 Furosemide (Lasix) 40 mg DAILY PO Last administered on 07/29/17at 09:07; Start 07/24/17 at 09:00; Stop 07/29/17 at 18:49; Status DC Gabapentin (Neurontin) 300 mg TID PO Last administered on 07/30/17at 13:22; Start 07/23/17 at 21:00 Albuterol/ Ipratropium (Duoneb) 3 ml PRN TID PRN NEB SHORTNESS OF BREATH; Start 07/23/17 at 21:00 Levetiracetam (Keppra) 250 mg BID PO Last administered on 07/30/17at 07:51; Start 07/23/17 at 21:00 Levothyroxine Sodium (Synthroid) 75 mcg DAILY07 PO Last administered on at 05:48; Start 07/24/17 at 07:00 Nystatin (Mycostatin) 1 nery PRN BID PRN TP RASH; Start 07/23/17 at 21:00 Polyethylene Glycol (miraLAX) 17 gm PRN DAILY PRN PO CONSTIPATION Last administered on 07/24/17at 12:44; Start 07/24/17 at 09:00 Sennosides (Senna) 8.6 mg PRN DAILY PRN PO CONSTIPATION Last administered on 03/31at 12:44; Start 07/23/17 at 21:00 Amylase/Lipase/ Protease (Zenpep 10,000) 1 cap TIDWMEALS PO Last administered on 07/30/17 17:53; Start 07/24/17 at 08:00 Al Hydroxide/Mg Hydroxide (Mylanta Plus Xs) 30 ml PRN Q4HRS PRN PO DYSPEPSIA; Start 07/23/17 at 21:15 Sodium Chloride (Jasmeet-5) 1 drop QID OU Last administered on 07/30/17at 17:00; Start 07/23/17 at 21:00 Acetazolamide (Diamox) 250 mg BID PO Last administered on 07/29/17 09:11; Start 07/24/17 at 09:00; Stop 07/29/17 at 18:49; Status DC Lactobacillus Rhamnosus (Culturelle) 1 cap BID PO Last administered on at 07:51; Start 07/24/17 at 21:00 Benztropine Mesylate (Cogentin) 0.5 mg DAILY PO Last administered on 07/30/17at 07:51; Start 07/26/17 at 09:00 Divalproex Sodium (Depakote Er) 500 mg QHS PO Last administered on 07/28/17 19 :27; Start 07/25/17 at 21:30; Stop 07/29/17 at 19:19; Status DC Risperidone (RisperDAL) 0.5 mg HS PO Last administered on 07/29/17at 20:12; Start 07/26/17 at 21:00 Clonazepam (KlonoPIN) 0.25 mg BID PO Last administered on 07/30/17at 07:55; Start 07/28/17 at 21:00; Stop 08/01/17 at 20:59 Clonazepam (KlonoPIN) 0.25 mg DAILY PO ; Start 08/01/17 at 09:00; Stop 08/04/17 at 08:59 Divalproex Sodium (Depakote Er) 1,000 mg QHS PO Last administered on 07/29/17at 20:11; Start 07/29/17 at 21:00 Active Scripts Active Reported Nystatin 15 Gm Oint...g. 1 Nery TP PRN BID PRN Keppra (Levetiracetam) 250 Mg Tablet 250 Mg PO BID Neurontin (Gabapentin) 300 Mg Capsule 300 Mg PO TID Jasmeet-128 (Sodium Chloride) 15 Ml Drops 1 Drop OU QID 30 Days Maalox Advanced Suspension (Mag Hydrox/Aluminum Hyd/Simeth) 355 Ml Oral.susp 30 Ml PO PRN Q4HRS PRN Pepcid (Famotidine) 20 Mg Tablet 20 Mg PO BID 30 Days Senokot (Sennosides) 8.6 Mg Tablet 8.6 Mg PO PRN DAILY PRN Miralax (Polyethylene Glycol 3350) 119 Gm Powder 17 Gm PO PRN DAILY PRN Duoneb 0.5-3(2.5) Mg/3 Ml (Albuterol/Ipratropium) 3 Ml Ampul.neb 3 Ml NEB PRN TID PRN Hydroxyzine Pamoate 50 Mg Capsule 50 Mg PO PRN Q6HRS PRN Trazodone Hcl 150 Mg Tablet 150 Mg PO QHS Paroxetine Hcl 30 Mg Tablet 30 Mg PO DAILY Levothyroxine Sodium 75 Mcg Tablet 75 Mcg PO DAILY07 Furosemide 40 Mg Tablet 40 Mg PO DAILY Creon Dr 12,000 Units Capsule (Lipase/Protease/Amylase) 1 Each Capsule.dr 1 Cap PO TIDWMEALS Clonazepam 0.5 Mg Tablet 0.5 Mg PO BID Benztropine Mesylate 0.5 Mg Tablet 0.5 Mg PO BID Abilify (Aripiprazole) 5 Mg Tablet 5 Mg PO DAILY Acetazolamide 250 Mg Tablet 250 Mg PO BID Tylenol With Codeine #3 Tablet (Acetaminophen With Codeine) 1 Each Tablet 1 Tab PO QID I have reviewed the current psychotropics carefully including drug interactions. Risk benefit ratio favors no change other than as noted in my dictated progress note. Diagnosis: Problems: (1) Change in mental status (2) Anxiety disorder (3) Bipolar affective, mixed, sev w/ psych (4) Impulse control disorder (5) Schizoaffective disorder, chronic condition with acute exacerbation ULISSES EPPS MD Jul 30, 2017 19:41
--- NOTE | 2017-07-31 02:58 | NUR ---
Behavior Intervention Response and Plan: BIRP Note: Behavior: Assumed Care of patient, patient located in Hallway at shift change. Patient exhibited the following behavior Calm, Wandering, Disorganized. Brief assessment on rounds of vital signs, medication needs, lab studies, and pain. Treatment plan problems 1-2. Intervention: Patient assessed and the following interventions initiated safety checks 15 Minute Checks Cognitive Assessment , Head to toe Assessment , Medications. Response: After interactions and interventions patient responded in the following manner, Disorganized , Wandering ,Compliant. Continue to assess behaviors and condition will continue to monitor throughout the shift as needed. Patient educated on ADL's, and hand hygiene. Plan: Continue to monitor Master Treatment Plan for patient's progress toward short term goals of Decreased Agitation, Decreased Aggression, fdc goals to return to previous living setting vs placement. Continue to assess patient for changes in above assessment. Monitor for medication needs, pain, and safety concerns. Hourly rounding performed to ensure safe environment.
[2017-07-31] MEDS: LEVOTHYROXINE 75 MCG TABLET PO SCH (06:24)
[2017-07-31 06:38] VITALS: BP 138/88
--- NOTE | 2017-07-31 08:02 | PN ---
DATE: 07/28/2017 This late entry 07/28/2017 covers elements not covered in my initial note 07/28/2017. SUBJECTIVE: I met with the patient in the evening of 07/28/2017. The patient did reasonably well previous evening, slept 7-1/2 hours, still extremely disorganized, somewhat sedated, her narcotics are being reduced per Dr. White. REVIEW OF SYSTEMS: No CV, , pulmonary, eye system symptoms on review. Reliability poor. MENTAL STATUS EXAM: Oriented to herself. Speech, often responses monosyllabic, sedated as I met with her the evening of 07/28/2017. Abstraction fair, computation impaired, language function intact, still somewhat psychotic. LABORATORY DATA: Reviewed. IMPRESSION: Schizoaffective disorder, bipolar type, mixed with psychotic features; cognitive disorder, unspecified. CT head is unremarkable. PLAN: Taper the Klonopin, which is currently 0.5 mg b.i.d., we will reduce to 0.25 mg twice a day for 3 days, then once a day for 3 days and stop it to help reduce the daytime sedation. Continue Keppra. May consider Neurology consult, Dr. Burton for her mental status change. Depakote ER 500 mg p.o. at bedtime. Labs, level to be checked on 15, we will adjust it after to reach therapeutic level. MAN Garret EPPS MD DR: KEMAR/rashaun JOB#: [id number] / [id number]
[2017-07-31] MEDS: BENZTROPINE MESYLATE 0.5 MG TABLET PO SCH (08:03)
[2017-07-31] MEDS: ACETAMINOPHEN/CODEINE 300/30MG TABLET PO SCH ×3 (08:03→17:00)
[2017-07-31] MEDS: LACTOBACILLUS RHAMNOSUS GG 1 CAPSULE. PO SCH ×2 (08:03→20:48)
[2017-07-31] MEDS: LIPASE/PROTEAS/AMYLAS 10/34/55 CAPSULE.DR. PO SCH ×3 (08:03→17:00)
[2017-07-31] MEDS: levETIRAcetam 250 MG TABLET PO SCH ×2 (08:04→20:49)
[2017-07-31] MEDS: FAMOTIDINE 20 MG TABLET PO SCH ×2 (08:04→20:48)
[2017-07-31] MEDS: GABAPENTIN 300 MG CAPSULE. PO SCH ×3 (08:04→20:48)
[2017-07-31] MEDS: SODIUM CHLORIDE 5% OPHTH SOLUTION 15ML BOTTLE. OU SCH ×4 (08:05→20:47)
[2017-07-31] MEDS: clonazePAM 0.5 MG TABLET PO SCH ×2 (08:07→20:57)
--- NOTE | 2017-07-31 08:35 | PN ---
DATE: 07/29/2017 This late entry, 07/29/2017, covers elements not covered in my initial note of 07/29/2017. SUBJECTIVE: I met with the patient the evening of 07/29/2017. The patient was staffed at treatment team meeting with the entire team morning of 07/29/2017. Reviewed her history at length. She was adopted as a baby. Currently has no family support. We will check a CT head if not done. Sleeping about 7 hours at night. Appetite 60-70%, difficult to redirect the previous evening, mumbling, whispering as I met with her, less drowsy during the day 07/29. We will have a neurology consult, Dr. Burton, with her history of seizure disorder and mental status changes. REVIEW OF SYSTEMS: Ambulation somewhat impaired. No CV, , pulmonary, eye system symptoms on review. Reliability poor. MENTAL STATUS EXAM: Oriented to herself and situation at times. Speech, low in volume. Abstraction fair, computation impaired, language function intact, attention span short. Mood and affect somewhat withdrawn. LABORATORY DATA: Reviewed. IMPRESSION: Schizoaffective disorder, bipolar type, mixed with psychotic features, in partial remission; cognitive disorder, unspecified. PLAN: Increase Depakote ER from 500 at bedtime to ____ at bedtime since level on 07/29/2017 is 39, subtherapeutic. Check CBC, CMP, and valproic acid level in [address] head as noted. Continue rest of the psychotropics mentioned in my initial note. ULISSES EPPS MD DR: KEMAR/rashaun JOB#: [id number] / [id number]
--- NOTE | 2017-07-31 10:36 | NUR ---
Behavior Intervention Response and Plan: BIRP Note: Behavior: Assumed Care of patient, patient located in Hallway at shift change. Patient exhibited the following behavior Calm, Wandering, Disorganized. Brief assessment on rounds of vital signs, medication needs, lab studies, and pain. Treatment plan problems . Intervention: Patient assessed and the following interventions initiated safety checks 15 Minute Checks Cognitive Assessment , Head to toe Assessment , Medications. Response: After interactions and interventions patient responded in the following manner, Disorganized , Wandering ,Compliant. Continue to assess behaviors and condition will continue to monitor throughout the shift as needed. Patient educated on ADL's, and hand hygiene. Plan: Continue to monitor Master Treatment Plan for patient's progress toward short term goals of Decreased Agitation, Decreased Aggression, nursing home goals to return to previous living setting vs placement. Continue to assess patient for changes in above assessment. Monitor for medication needs, pain, and safety concerns. Hourly rounding performed to ensure safe environment.
--- NOTE | 2017-07-31 15:40 | NUR ---
Mindy found pt lying on bed with eyes open. unresponsive to verbal and tactile stimuli. started to perk up as more staff entered room. o2 sats and BP low. rapid response called. see noted. pt resting quietly in bed. drowsy but responds to verbal stimuli. O2 removed as she was running 100% on RA.
--- NOTE | 2017-07-31 17:06 | EKG ---
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
[2017-07-31 17:24] LABS: BASO # 0.1 x10^3/uL (0.0-0.2); BASO % 1 % (0-3); EOS # 0.1 x10^3/uL (0.0-0.7); EOS % 2 % (0-3); HEMOGLOBIN 11.7 g/dL (12.0-15.5); LYMPH # 1.7 x10^3/uL (1.0-4.8); LYMPH % 25 % (24-48); MEAN CORPUSCULAR HEMOGLOBIN 25 pg (25-35); MEAN CORPUSCULAR HGB CONC 32 g/dL (31-37); MEAN CORPUSCULAR VOLUME 78 fL (79-100); MONO # 0.5 x10^3/uL (0.0-1.1); MONO % 8 % (0-9); NEUT # 4.2 x10^3uL (1.8-7.7); NEUT % 63 % (31-73); PLATELET COUNT 195 x10^3/uL (140-400); RED BLOOD COUNT 4.74 x10^6/uL (3.50-5.40); RED CELL DISTRIBUTION WIDTH 15.8 % (11.5-14.5); WHITE BLOOD COUNT 6.7 x10^3/uL (4.0-11.0)
[2017-07-31 17:30] LABS: ALBUMIN 2.7 g/dL (3.4-5.0); ALBUMIN/GLOBULIN RATIO 0.7 (1.0-1.7); CALCIUM 8.8 mg/dL (8.5-10.1); CREATININE 0.7 mg/dL (0.6-1.0); GFR 86.9; POTASSIUM 3.6 mmol/L (3.5-5.1); TOTAL BILIRUBIN 0.1 mg/dL (0.2-1.0); TOTAL PROTEIN 6.7 g/dL (6.4-8.2)
[2017-07-31 19:45] VITALS: BP 95/56
[2017-07-31] MEDS: traZODone 150 MG TABLET. PO SCH (20:47)
[2017-07-31] MEDS: risperiDONE 0.5 MG TABLET. PO SCH (20:48)
[2017-07-31] MEDS: DIVALPROEX ER 500 MG TAB.ER.24H PO SCH (20:48)
[2017-07-31] MEDS: ACETAMINOPHEN/CODEINE 300/30MG TABLET PO PRN (20:48)
--- NOTE | 2017-07-31 22:22 | PDOC ---
Exam Note: Michael Note: Please also refer to the separate dictated note~for this date of service dictated separately.~Patient seen individually. Discussed the patient with Nursing staff reviewed the chart.~Reviewed interim history and current functioning. Reviewed vital signs,~Labs/ Radiology~and current medications noted below. Continue current treatment with the changes noted in the dictated addendum note Assessment: Vital Signs: Vital Signs Date Time Temp Pulse Resp B/P (MAP) Pulse Ox O2 Delivery O2 Flow Rate FiO2 07/31/17 17:56 96.6 70 16 07/31/17 06:38 138/88 (105) 95 07/30/17 19:39 Room Air I&O Intake and Output 07/31/17 07:00 Intake Total 1080 ml Balance 1080 ml Intake Oral 1080 ml Labs: Laboratory Tests Test 07/31/17 16:00 White Blood Count 6.7 x10^3/uL (4.0-11.0) Red Blood Count 4.74 x10^6/uL (3.50-5.40) Hemoglobin 11.7 g/dL (12.0-15.5) L Hematocrit 37.0 % (36.0-47.0) Mean Corpuscular Volume 78 fL (79-100) L Mean Corpuscular Hemoglobin 25 pg (25-35) Mean Corpuscular Hemoglobin Concent 32 g/dL (31-37) Red Cell Distribution Width 15.8 % (11.5-14.5) H Platelet Count 195 x10^3/uL (140-400) Neutrophils (%) (Auto) 63 % (31-73) Lymphocytes (%) (Auto) 25 % (24-48) Monocytes (%) (Auto) 8 % (0-9) Eosinophils (%) (Auto) 2 % (0-3) Basophils (%) (Auto) 1 % (0-3) Neutrophils # (Auto) 4.2 x10^3uL (1.8-7.7) Lymphocytes # (Auto) 1.7 x10^3/uL (1.0-4.8) Monocytes # (Auto) 0.5 x10^3/uL (0.0-1.1) Eosinophils # (Auto) 0.1 x10^3/uL (0.0-0.7) Basophils # (Auto) 0.1 x10^3/uL (0.0-0.2) Platelet Estimate Pending Sodium Level 141 mmol/L (136-145) Potassium Level 3.6 mmol/L (3.5-5.1) Chloride Level 108 mmol/L (98-107) H Carbon Dioxide Level 24 mmol/L (21-32) Anion Gap 9 (6-14) Blood Urea Nitrogen 13 mg/dL (7-20) Creatinine 0.7 mg/dL (0.6-1.0) Estimated GFR (Cockcroft-Gault) 86.9 BUN/Creatinine Ratio 19 (6-20) Glucose Level 109 mg/dL (70-99) H Calcium Level 8.8 mg/dL (8.5-10.1) Total Bilirubin 0.1 mg/dL (0.2-1.0) L Aspartate Amino Transferase (AST) 16 U/L (15-37) Alanine Aminotransferase (ALT) 13 U/L (14-59) L Alkaline Phosphatase 147 U/L (46-116) H Creatine Kinase 101 U/L (26-192) Creatine Kinase MB (Mass) 3.2 ng/mL (0.0-3.6) Creatine Kinase MB Relative Index 3.2 % (0-4) Troponin I Quantitative < 0.017 ng/mL (0-0.055) Total Protein 6.7 g/dL (6.4-8.2) Albumin 2.7 g/dL (3.4-5.0) L Albumin/Globulin Ratio 0.7 (1.0-1.7) L Current Medications: Meds: Current Medications Sodium Chloride 1,000 ml @ 1,000 mls/hr Q1H IV Last administered on 07/23/17at 18:00; Start 07/23/17 at 18:00; Stop 07/23/17 at 18:59; Status DC Potassium Chloride (KCl Oral Soln) 40 meq 1X STAT PO Last administered on at 20:06; Start 07/23/17 at 19:45; Stop 07/23/17 at 19:48; Status DC Cephalexin HCl (Keflex) 500 mg 1X ONCE PO Last administered on 07/23/17at 20:10 ; Start 07/23/17 at 20:15; Stop 07/23/17 at 20:16; Status DC Cephalexin HCl (Keflex) 500 mg TID PO Last administered on 07/25/17at 19:45; Start 07/24/17 at 09:00; Stop 07/26/17 at 18:23; Status DC Aripiprazole (Abilify) 5 mg DAILY PO Last administered on 07/26/17at 08:07; Start 07/24/17 at 09:00; Stop 07/26/17 at 19:19; Status DC Benztropine Mesylate (Cogentin) 0.5 mg BID PO Last administered on 07/25/17at 19 :45; Start 07/23/17 at 21:00; Stop 07/25/17 at 21:10; Status DC Clonazepam (KlonoPIN) 0.5 mg BID PO Last administered on 07/28/17at 08:51; Start 07/23/17 at 21:00; Stop 07/28/17 at 18:19; Status DC Trazodone HCl (Desyrel) 150 mg QHS PO Last administered on 07/31/17at 20:47; Start 07/23/17 at 21:00 Hydroxyzine HCl (Atarax) 50 mg PRN Q6HRS PRN PO ANXIETY/AGITATION; Start at 21:00 Acetaminophen/ Codeine Phosphate (Tylenol #3) 1 tab QID PO Last administered on 07/31/17at 13:09; Start 07/23/17 at 21:00; Stop 07/31/17 at 18:23; Status DC Acetazolamide (Diamox) 250 mg BID PO ; Start 07/23/17 at 21:00; Stop 07/23/17 at 21:23; Status DC Famotidine (Pepcid) 20 mg BID PO Last administered on 07/31/17at 20:48; Start at 21:00 Furosemide (Lasix) 40 mg DAILY PO Last administered on 07/29/17at 09:07; Start 07/24/17 at 09:00; Stop 07/29/17 at 18:49; Status DC Gabapentin (Neurontin) 300 mg TID PO Last administered on 07/31/17at 20:48; Start 07/23/17 at 21:00 Albuterol/ Ipratropium (Duoneb) 3 ml PRN TID PRN NEB SHORTNESS OF BREATH; Start 07/23/17 at 21:00 Levetiracetam (Keppra) 250 mg BID PO Last administered on 07/31/17 20:49; Start 07/23/17 at 21:00 Levothyroxine Sodium (Synthroid) 75 mcg DAILY07 PO Last administered on at 06:24; Start 07/24/17 at 07:00 Nystatin (Mycostatin) 1 nery PRN BID PRN TP RASH; Start 07/23/17 at 21:00 Polyethylene Glycol (miraLAX) 17 gm PRN DAILY PRN PO CONSTIPATION Last administered on 07/24/17 12:44; Start 07/24/17 at 09:00 Sennosides (Senna) 8.6 mg PRN DAILY PRN PO CONSTIPATION Last administered on 12:44; Start 07/23/17 at 21:00 Amylase/Lipase/ Protease (Zenpep 10,000) 1 cap TIDWMEALS PO Last administered on 07/31/17 17:00; Start 07/24/17 at 08:00 Al Hydroxide/Mg Hydroxide (Mylanta Plus Xs) 30 ml PRN Q4HRS PRN PO DYSPEPSIA; Start 07/23/17 at 21:15 Sodium Chloride (Jasmeet-5) 1 drop QID OU Last administered on 07/31/17 20:47; Start 07/23/17 at 21:00 Acetazolamide (Diamox) 250 mg BID PO Last administered on 07/29/17 09:11; Start 07/24/17 at 09:00; Stop 07/29/17 at 18:49; Status DC Lactobacillus Rhamnosus (Culturelle) 1 cap BID PO Last administered on at 20:48; Start 07/24/17 at 21:00 Benztropine Mesylate (Cogentin) 0.5 mg DAILY PO Last administered on 07/31/17 08:03; Start 07/26/17 at 09:00 Divalproex Sodium (Depakote Er) 500 mg QHS PO Last administered on 07/28/17at 19 :27; Start 07/25/17 at 21:30; Stop 07/29/17 at 19:19; Status DC Risperidone (RisperDAL) 0.5 mg HS PO Last administered on 07/31/17at 20:48; Start 07/26/17 at 21:00 Clonazepam (KlonoPIN) 0.25 mg BID PO Last administered on 07/31/17at 20:57; Start 07/28/17 at 21:00; Stop 08/01/17 at 20:59 Clonazepam (KlonoPIN) 0.25 mg DAILY PO ; Start 08/01/17 at 09:00; Stop 08/04/17 at 08:59 Divalproex Sodium (Depakote Er) 1,000 mg QHS PO Last administered on 07/31/17at 20:48; Start 07/29/17 at 21:00 Acetaminophen/ Codeine Phosphate (Tylenol #3) 1 tab PRN QID PRN PO PAIN Last administered on 07/31/17at 20:48; Start 07/31/17 at 18:30 Active Scripts Active Reported Nystatin 15 Gm Oint...g. 1 Nery TP PRN BID PRN Keppra (Levetiracetam) 250 Mg Tablet 250 Mg PO BID Neurontin (Gabapentin) 300 Mg Capsule 300 Mg PO TID Jasmeet-128 (Sodium Chloride) 15 Ml Drops 1 Drop OU QID 30 Days Maalox Advanced Suspension (Mag Hydrox/Aluminum Hyd/Simeth) 355 Ml Oral.susp 30 Ml PO PRN Q4HRS PRN Pepcid (Famotidine) 20 Mg Tablet 20 Mg PO BID 30 Days Senokot (Sennosides) 8.6 Mg Tablet 8.6 Mg PO PRN DAILY PRN Miralax (Polyethylene Glycol 3350) 119 Gm Powder 17 Gm PO PRN DAILY PRN Duoneb 0.5-3(2.5) Mg/3 Ml (Albuterol/Ipratropium) 3 Ml Ampul.neb 3 Ml NEB PRN TID PRN Hydroxyzine Pamoate 50 Mg Capsule 50 Mg PO PRN Q6HRS PRN Trazodone Hcl 150 Mg Tablet 150 Mg PO QHS Paroxetine Hcl 30 Mg Tablet 30 Mg PO DAILY Levothyroxine Sodium 75 Mcg Tablet 75 Mcg PO DAILY07 Furosemide 40 Mg Tablet 40 Mg PO DAILY Hannah Fair[place] 12,000 Units Capsule (Lipase/Protease/Amylase) 1 Each Capsule. 1 Cap PO TIDWMEALS Clonazepam 0.5 Mg Tablet 0.5 Mg PO BID Benztropine Mesylate 0.5 Mg Tablet 0.5 Mg PO BID Abilify (Aripiprazole) 5 Mg Tablet 5 Mg PO DAILY Acetazolamide 250 Mg Tablet 250 Mg PO BID Tylenol With Codeine #3 Tablet (Acetaminophen With Codeine) 1 Each Tablet 1 Tab PO QID I have reviewed the current psychotropics carefully including drug interactions. Risk benefit ratio favors no change other than as noted in my dictated progress note. Diagnosis: Problems: (1) Change in mental status (2) Anxiety disorder (3) Bipolar affective, mixed, sev w/ psych (4) Impulse control disorder (5) Schizoaffective disorder, chronic condition with acute exacerbation ULISSES EPPS MD Jul 31, 2017 22:22
[2017-07-31 22:32] LABS: OVALOCYTES OCC; PLT ESTIMATE ADEQUATE (ADEQUATE); POLYCHROMASIA SLIGHT
--- NOTE | 2017-08-01 00:59 | NUR ---
Behavior Intervention Response and Plan: BIRP Note: Behavior: Assumed Care of patient, patient located in Hallway at shift change. Patient exhibited the following behavior Calm, Disorganized, Able to Focus on Task. Brief assessment on rounds of vital signs, medication needs, lab studies, and pain. Treatment plan problems :1-2 Intervention: Patient assessed and the following interventions initiated safety checks 15 Minute Checks Cognitive Assessment , Head to toe Assessment , Medications. Response: After interactions and interventions patient responded in the following manner, Disorganized , Withdrawn ,Compliant. Continue to assess behaviors and condition will continue to monitor throughout the shift as needed. Patient educated on ADL's, and hand hygiene. 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 Continue to assess patient for changes in above assessment. Monitor for medication needs, pain, and safety concerns. Hourly rounding performed to ensure safe environment.
--- NOTE | 2017-08-01 01:00 | NUR ---
Nsg Note: Pt's VSS @ shift change last noc [ 07/31 @ 1945] BP 95/56 T 97.1 P 101 R 18 sPo2 100% on RA. Pt did appear drowsy & retired early but was able to follow simple instructions. Will cont. to monitor.
[2017-08-01] MEDS: LEVOTHYROXINE 75 MCG TABLET PO SCH (06:10)
[2017-08-01] MEDS: LACTOBACILLUS RHAMNOSUS GG 1 CAPSULE. PO SCH ×2 (07:44→21:04)
[2017-08-01] MEDS: GABAPENTIN 300 MG CAPSULE. PO SCH ×3 (07:44→21:05)
[2017-08-01] MEDS: clonazePAM 0.5 MG TABLET PO SCH ×2 (07:45)
[2017-08-01] MEDS: levETIRAcetam 250 MG TABLET PO SCH ×2 (07:45→21:04)
[2017-08-01] MEDS: BENZTROPINE MESYLATE 0.5 MG TABLET PO SCH (07:46)
[2017-08-01] MEDS: FAMOTIDINE 20 MG TABLET PO SCH ×2 (07:46→21:05)
[2017-08-01] MEDS: LIPASE/PROTEAS/AMYLAS 10/34/55 CAPSULE.DR. PO SCH ×3 (07:46→17:00)
[2017-08-01] MEDS: SODIUM CHLORIDE 5% OPHTH SOLUTION 15ML BOTTLE. OU SCH ×4 (07:47→21:05)
[2017-08-01 10:00] LABS: BASO # 0.1 x10^3/uL (0.0-0.2); BASO % 1 % (0-3); EOS # 0.1 x10^3/uL (0.0-0.7); EOS % 1 % (0-3); HEMATOCRIT 38.3 % (36.0-47.0); HEMOGLOBIN 12.4 g/dL (12.0-15.5); LYMPH % 11 % (24-48); MEAN CORPUSCULAR HEMOGLOBIN 25 pg (25-35); MEAN CORPUSCULAR HGB CONC 32 g/dL (31-37); MEAN CORPUSCULAR VOLUME 76 fL (79-100); MONO # 0.7 x10^3/uL (0.0-1.1); MONO % 8 % (0-9); NEUT # 7.3 x10^3uL (1.8-7.7); NEUT % 80 % (31-73); PLATELET COUNT 263 x10^3/uL (140-400); RED BLOOD COUNT 5.04 x10^6/uL (3.50-5.40); RED CELL DISTRIBUTION WIDTH 15.9 % (11.5-14.5); WHITE BLOOD COUNT 9.2 x10^3/uL (4.0-11.0)
[2017-08-01 10:22] LABS: ALBUMIN 2.9 g/dL (3.4-5.0); ALBUMIN/GLOBULIN RATIO 0.6 (1.0-1.7); ALK PHOS 157 U/L (46-116); ALT (SGPT) 15 U/L (14-59); ANION GAP 10 (6-14); AST (SGOT) 20 U/L (15-37); BLOOD UREA NITROGEN 11 mg/dL (7-20); BUN/CREATININE RATIO 14 (6-20); CALCIUM 9.1 mg/dL (8.5-10.1); CARBON DIOXIDE 24 mmol/L (21-32); CHLORIDE 108 mmol/L (98-107); CREATININE 0.8 mg/dL (0.6-1.0); GFR 74.5; GLUCOSE 133 mg/dL (70-99); POTASSIUM 3.7 mmol/L (3.5-5.1); SODIUM 142 mmol/L (136-145); TOTAL BILIRUBIN 0.2 mg/dL (0.2-1.0); TOTAL PROTEIN 7.7 g/dL (6.4-8.2); VAL ACID 77 mcg/mL (50-100)
--- NOTE | 2017-08-01 12:30 | NUR ---
pt very lethargic at lunch. dropping glass and not able to hold utensils well. 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 able to smile with no facial drooping. informed Dr Burton. No new orders noted. Depakote level increased from 39 to 77 over 3 days. pt assisted to bed.
[2017-08-01 15:57] VITALS: BP 113/70
--- NOTE | 2017-08-01 16:07 | NUR ---
pt ambulating in halls. in afternoon. is intrusive and hoarding things. resistive to redirection. has been talking in a louder than normal voice but not yelling. called nurse a liar when speaking to another peer. telling peers to not let anyone in their rooms. placed in [facility].
--- NOTE | 2017-08-01 19:58 | PDOC ---
Exam Note: Michael Note: Please also refer to the separate dictated note~for this date of service dictated separately.~Patient seen individually. Discussed the patient with Nursing staff reviewed the chart.~Reviewed interim history and current functioning. Reviewed vital signs,~Labs/ Radiology~and current medications noted below. Continue current treatment with the changes noted in the dictated addendum note Assessment: Vital Signs: Vital Signs Date Time Temp Pulse Resp B/P (MAP) Pulse Ox O2 Delivery O2 Flow Rate FiO2 08/01/17 15:57 99.4 93 20 113/70 (84) 92 07/30/17 19:39 Room Air I&O Intake and Output 08/01/17 07:00 Intake Total 840 ml Balance 840 ml Intake Oral 840 ml Labs: Laboratory Tests Test 08/01/17 09:37 White Blood Count 9.2 x10^3/uL (4.0-11.0) Red Blood Count 5.04 x10^6/uL (3.50-5.40) Hemoglobin 12.4 g/dL (12.0-15.5) Hematocrit 38.3 % (36.0-47.0) Mean Corpuscular Volume 76 fL (79-100) L Mean Corpuscular Hemoglobin 25 pg (25-35) Mean Corpuscular Hemoglobin Concent 32 g/dL (31-37) Red Cell Distribution Width 15.9 % (11.5-14.5) H Platelet Count 263 x10^3/uL (140-400) Neutrophils (%) (Auto) 80 % (31-73) H Lymphocytes (%) (Auto) 11 % (24-48) L Monocytes (%) (Auto) 8 % (0-9) Eosinophils (%) (Auto) 1 % (0-3) Basophils (%) (Auto) 1 % (0-3) Neutrophils # (Auto) 7.3 x10^3uL (1.8-7.7) Lymphocytes # (Auto) 1.0 x10^3/uL (1.0-4.8) Monocytes # (Auto) 0.7 x10^3/uL (0.0-1.1) Eosinophils # (Auto) 0.1 x10^3/uL (0.0-0.7) Basophils # (Auto) 0.1 x10^3/uL (0.0-0.2) Sodium Level 142 mmol/L (136-145) Potassium Level 3.7 mmol/L (3.5-5.1) Chloride Level 108 mmol/L (98-107) H Carbon Dioxide Level 24 mmol/L (21-32) Anion Gap 10 (6-14) Blood Urea Nitrogen 11 mg/dL (7-20) Creatinine 0.8 mg/dL (0.6-1.0) Estimated GFR (Cockcroft-Gault) 74.5 BUN/Creatinine Ratio 14 (6-20) Glucose Level 133 mg/dL (70-99) H Calcium Level 9.1 mg/dL (8.5-10.1) Total Bilirubin 0.2 mg/dL (0.2-1.0) # Aspartate Amino Transferase (AST) 20 U/L (15-37) Alanine Aminotransferase (ALT) 15 U/L (14-59) Alkaline Phosphatase 157 U/L (46-116) H Total Protein 7.7 g/dL (6.4-8.2) Albumin 2.9 g/dL (3.4-5.0) L Albumin/Globulin Ratio 0.6 (1.0-1.7) L Valproic Acid Level 77 mcg/mL (50-100) Valproic Acid Last Dose Date 07/31/17 Valproic Acid Last Dose Time 2100 Current Medications: Meds: Current Medications Sodium Chloride 1,000 ml @ 1,000 mls/hr Q1H IV Last administered on 07/23/17at 18:00; Start 07/23/17 at 18:00; Stop 07/23/17 at 18:59; Status DC Potassium Chloride (KCl Oral Soln) 40 meq 1X STAT PO Last administered on at 20:06; Start 07/23/17 at 19:45; Stop 07/23/17 at 19:48; Status DC Cephalexin HCl (Keflex) 500 mg 1X ONCE PO Last administered on 07/23/17at 20:10 ; Start 07/23/17 at 20:15; Stop 07/23/17 at 20:16; Status DC Cephalexin HCl (Keflex) 500 mg TID PO Last administered on 07/25/17at 19:45; Start 07/24/17 at 09:00; Stop 07/26/17 at 18:23; Status DC Aripiprazole (Abilify) 5 mg DAILY PO Last administered on 07/26/17at 08:07; Start 07/24/17 at 09:00; Stop 07/26/17 at 19:19; Status DC Benztropine Mesylate (Cogentin) 0.5 mg BID PO Last administered on 07/25/17at 19 :45; Start 07/23/17 at 21:00; Stop 07/25/17 at 21:10; Status DC Clonazepam (KlonoPIN) 0.5 mg BID PO Last administered on 07/28/17at 08:51; Start 07/23/17 at 21:00; Stop 07/28/17 at 18:19; Status DC Trazodone HCl (Desyrel) 150 mg QHS PO Last administered on 07/31/17at 20:47; Start 07/23/17 at 21:00 Hydroxyzine HCl (Atarax) 50 mg PRN Q6HRS PRN PO ANXIETY/AGITATION; Start at 21:00 Acetaminophen/ Codeine Phosphate (Tylenol #3) 1 tab QID PO Last administered on 07/31/17at 13:09; Start 07/23/17 at 21:00; Stop 07/31/17 at 18:23; Status DC Acetazolamide (Diamox) 250 mg BID PO ; Start 07/23/17 at 21:00; Stop 07/23/17 at 21:23; Status DC Famotidine (Pepcid) 20 mg BID PO Last administered on 08/01/17at 07:46; Start at 21:00 Furosemide (Lasix) 40 mg DAILY PO Last administered on 07/29/17at 09:07; Start 07/24/17 at 09:00; Stop 07/29/17 at 18:49; Status DC Gabapentin (Neurontin) 300 mg TID PO Last administered on 08/01/17at 07:44; Start 07/23/17 at 21:00 Albuterol/ Ipratropium (Duoneb) 3 ml PRN TID PRN NEB SHORTNESS OF BREATH; Start 07/23/17 at 21:00 Levetiracetam (Keppra) 250 mg BID PO Last administered on 08/01/17at 07:45; Start 07/23/17 at 21:00 Levothyroxine Sodium (Synthroid) 75 mcg DAILY07 PO Last administered on 06:10; Start 07/24/17 at 07:00 Nystatin (Mycostatin) 1 nery PRN BID PRN TP RASH; Start 07/23/17 at 21:00 Polyethylene Glycol (miraLAX) 17 gm PRN DAILY PRN PO CONSTIPATION Last administered on 07/24/17at 12:44; Start 07/24/17 at 09:00 Sennosides (Senna) 8.6 mg PRN DAILY PRN PO CONSTIPATION Last administered on 12:44; Start 07/23/17 at 21:00 Amylase/Lipase/ Protease (Zenpep 10,000) 1 cap TIDWMEALS PO Last administered on 08/01/17 13:30; Start 07/24/17 at 08:00 Al Hydroxide/Mg Hydroxide (Mylanta Plus Xs) 30 ml PRN Q4HRS PRN PO DYSPEPSIA; Start 07/23/17 at 21:15 Sodium Chloride (Jasmeet-5) 1 drop QID OU Last administered on 08/01/17 13:00; Start 07/23/17 at 21:00 Acetazolamide (Diamox) 250 mg BID PO Last administered on 07/29/17 09:11; Start 07/24/17 at 09:00; Stop 07/29/17 at 18:49; Status DC Lactobacillus Rhamnosus (Culturelle) 1 cap BID PO Last administered on 07:44; Start 07/24/17 at 21:00 Benztropine Mesylate (Cogentin) 0.5 mg DAILY PO Last administered on 08/01/17at 07:46; Start 07/26/17 at 09:00 Divalproex Sodium (Depakote Er) 500 mg QHS PO Last administered on 07/28/17 19 :27; Start 07/25/17 at 21:30; Stop 07/29/17 at 19:19; Status DC Risperidone (RisperDAL) 0.5 mg HS PO Last administered on 07/31/17at 20:48; Start 07/26/17 at 21:00 Clonazepam (KlonoPIN) 0.25 mg BID PO Last administered on 08/01/17at 07:45; Start 07/28/17 at 21:00; Stop 08/01/17 at 20:59 Clonazepam (KlonoPIN) 0.25 mg DAILY PO ; Start 08/01/17 at 09:00; Stop 08/04/17 at 08:59 Divalproex Sodium (Depakote Er) 1,000 mg QHS PO Last administered on 07/31/17at 20:48; Start 07/29/17 at 21:00 Acetaminophen/ Codeine Phosphate (Tylenol #3) 1 tab PRN QID PRN PO PAIN Last administered on 07/31/17at 20:48; Start 07/31/17 at 18:30 Active Scripts Active Reported Nystatin 15 Gm Oint...g. 1 Nery TP PRN BID PRN Keppra (Levetiracetam) 250 Mg Tablet 250 Mg PO BID Neurontin (Gabapentin) 300 Mg Capsule 300 Mg PO TID Jasmeet-128 (Sodium Chloride) 15 Ml Drops 1 Drop OU QID 30 Days Maalox Advanced Suspension (Mag Hydrox/Aluminum Hyd/Simeth) 355 Ml Oral.susp 30 Ml PO PRN Q4HRS PRN Pepcid (Famotidine) 20 Mg Tablet 20 Mg PO BID 30 Days Senokot (Sennosides) 8.6 Mg Tablet 8.6 Mg PO PRN DAILY PRN Miralax (Polyethylene Glycol 3350) 119 Gm Powder 17 Gm PO PRN DAILY PRN Duoneb 0.5-3(2.5) Mg/3 Ml (Albuterol/Ipratropium) 3 Ml Ampul.neb 3 Ml NEB PRN TID PRN Hydroxyzine Pamoate 50 Mg Capsule 50 Mg PO PRN Q6HRS PRN Trazodone Hcl 150 Mg Tablet 150 Mg PO QHS Paroxetine Hcl 30 Mg Tablet 30 Mg PO DAILY Levothyroxine Sodium 75 Mcg Tablet 75 Mcg PO DAILY07 Furosemide 40 Mg Tablet 40 Mg PO DAILY Hannah Fairbanks 12,000 Units Capsule (Lipase/Protease/Amylase) 1 Each Capsule. 1 Cap PO TIDWMEALS Clonazepam 0.5 Mg Tablet 0.5 Mg PO BID Benztropine Mesylate 0.5 Mg Tablet 0.5 Mg PO BID Abilify (Aripiprazole) 5 Mg Tablet 5 Mg PO DAILY Acetazolamide 250 Mg Tablet 250 Mg PO BID Tylenol With Codeine #3 Tablet (Acetaminophen With Codeine) 1 Each Tablet 1 Tab PO QID I have reviewed the current psychotropics carefully including drug interactions. Risk benefit ratio favors no change other than as noted in my dictated progress note. Diagnosis: Problems: (1) Change in mental status (2) Anxiety disorder (3) Bipolar affective, mixed, sev w/ psych (4) Impulse control disorder (5) Schizoaffective disorder, chronic condition with acute exacerbation ULISSES EPPS MD Aug 01, 2017 19:58
[2017-08-01] MEDS: DIVALPROEX ER 500 MG TAB.ER.24H PO SCH (21:04)
[2017-08-01] MEDS: risperiDONE 0.5 MG TABLET. PO SCH (21:05)
[2017-08-01] MEDS: traZODone 150 MG TABLET. PO SCH (21:05)
--- NOTE | 2017-08-01 22:19 | PN ---
DATE: 07/30/2017 This late entry 07/30/2017 covers elements not covered in my initial note 07/30/2017. SUBJECTIVE: The patient remains confused, has been repeatedly asking to make telephone calls to speak to her dad. Dr. Burton did see her from a neurological standpoint. REVIEW OF SYSTEMS: No CV, , pulmonary, eye, ENT system symptoms on review, somewhat reliability is poor. MENTAL STATUS EXAM: Oriented to herself. Insight, judgment, recent memory is impaired. Language function intact. Attention span short. Mood and affect somewhat withdrawn, inattentive. No suicidal or homicidal ideation. IMPRESSION: Schizoaffective disorder, bipolar type, cognitive disorder, unspecified. PLAN: Given the patient's confusion, her Klonopin is being tapered. Maintain Risperdal, Cogentin, Keppra, trazodone, hydroxyzine, Neurontin, and Depakote. Depakote is being adjusted. Labs will be checked on 08/01/2017 and we will adjust further to reach a therapeutic level. If no extrapyramidal symptoms noted, we will then stop the Cogentin. MAN Garret EPPS MD DR: KEMAR/rashaun JOB#: [id number] / [id number]
--- NOTE | 2017-08-01 22:53 | PN ---
DATE: 08/01/2017 This is a late entry, 07/31/2017, covers the elements not covered in my initial note, 07/31/2017. SUBJECTIVE: Overall, the patient remains somewhat confused. At around 4 p.m., she had a questionable seizure episode, was nonresponsive. Rapid response was called, and she seemed to have some postictal sedation. Dr. Burton, Neurology has been asked to revisit with her. During the postictal period, she was having some right arm tremors. CK-MB and troponin were done, defer to Dr. White by suppertime. She was alright, which is when I she met with her. REVIEW OF SYSTEMS: No CV, , pulmonary, eye, ENT system symptoms on review. MENTAL STATUS EXAM: Oriented to herself, unaware of where she is. Speech has some latency, low in volume, coherent, abstraction fair, computation impaired, language function intact. She is still somewhat paranoid. No suicidal or homicidal ideation. IMPRESSION: Schizoaffective disorder, bipolar type; cognitive disorder, unspecified. PLAN: Continue current psychotropics, Klonopin has been tapered since it was felt this was worsening her confusion, cognitive deficits. Maintain rest unchanged. Adjust Depakote to reach a therapeutic level. Repeat labs on 08/01/2017, and then adjust Depakote thereafter. MAN Garret EPPS MD DR: KEMAR/rashaun JOB#: [id number] / [id number]
--- NOTE | 2017-08-01 23:40 | NUR ---
Behavior Intervention Response and Plan: BIRP Note: Behavior: Assumed Care of patient, patient located in Day Room at shift change. Patient exhibited the following behavior Disorganized, Demanding, Resistive. Brief assessment on rounds of vital signs, medication needs, lab studies, and pain. Treatment plan problems:1-2 Intervention: Patient assessed and the following interventions initiated safety checks 15 Minute Checks Cognitive Assessment , Head to toe Assessment , Medications. Response: After interactions and interventions patient responded in the following manner, Disorganized , Able to Focus on Task ,Defensive. Continue to assess behaviors and condition will continue to monitor throughout the shift as needed. Patient educated on ADL's, and hand hygiene. Pt was briefly agitated during HS ADL's & [facility] before she calmed down & stated she was ready for bed. I assisted pt & she settled without difficulty. Pt voiced her desire to smoke & also asked why she was here. Pt informed that she was in the hospital for a short stay for med adjustment. Furthermore it would be up to her & the NH whether she could resume smoking but smoking was not allowed here. Pt voiced that she understood. 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 Continue to assess patient for changes in above assessment. Monitor for medication needs, pain, and safety concerns. Hourly rounding performed to ensure safe environment.
--- NOTE | 2017-08-02 01:32 | CONS ---
DATE OF CONSULTATION: 07/26/2017 NEUROLOGIC CONSULTATION REFERRING PHYSICIAN: Dr. Ian Arora. REASON FOR CONSULTATION: History of seizure disorder. HISTORY OF PRESENT ILLNESS: This is a 56-year-old right-handed white female, who has had 6-week history of mental status changes and worsening of her underlying bipolar disorder and schizoaffective disorder. Neuro consult was requested because the patient has had history of seizure of unknown etiology and of unknown duration. The patient is not a perfect historian. The patient is unable to provide any information about her illnesses. She is restless and answers questions in very short words with delayed response. When I asked her about the etiology of the seizure, she did not answer; however, there is no medical record found to review. The patient was transferred from [facility] because of increasing symptoms of confusion, delusion, hallucinations, incontinence and behavior disturbances described as aggressive and abusive behavior. She has been treated for recent urinary tract infection. The patient denies headaches, visual disturbances, nausea, vomiting, chest pain or shortness of breath. PAST MEDICAL HISTORY: Significant for schizoaffective disorder, bipolar disorder, anxiety, congestive heart failure, COPD, asthma, hypothyroidism, hyperlipidemia and dysphagia. History of seizure disorder of unknown etiology. SOCIAL HISTORY: The patient is a [place] [facility] resident. She denies smoking. She denies alcohol drinking. However, there is no information about her drinking if she drank alcohol in the past. MEDICATIONS: Please review the MAR. REVIEW OF SYSTEMS: A 10-point review of system was performed and as mentioned above in the history of present illness. PHYSICAL EXAMINATION: GENERAL: Well-developed and well-nourished white female, not in acute distress. VITAL SIGNS: Blood pressure 100/67, respiratory rate is 16, pulse is 88, temperature 98.9, and oxygen saturation 95% on room air. HEENT: Normocephalic and atraumatic, otherwise unremarkable. NECK: Supple, negative for carotid bruit, lymphadenopathy or thyromegaly. LUNGS: Clear to A and P. CARDIOVASCULAR: Regular rhythm, normal S1, S2. There is no S3, S4 or murmurs. ABDOMEN: Soft. Bowel sounds positive. EXTREMITIES: Negative for cyanosis, clubbing or pitting edema. NEUROLOGICAL EXAM: 1. Mental Status: The patient is alert, but disoriented to time and place. The patient cannot answer simple questions sometimes. She hardly follows 1-step command. The patient is not cooperative with the questions. 2. Cranial nerves: Visual blanco appear to be intact. The pupils are equal and reactive to light. There is no facial motor or sensory deficit. Hearing appeared to be intact. The palate is elevated symmetrically. Sternocleidomastoid muscles are powerful bilaterally. The patient shrugs her shoulders symmetrically and able to protrude her tongue. 3. MOTOR EXAMINATION: No focal muscle bulk was seen. The tone is normal. The strength is 5/5 throughout. No tremor noted. 4. SENSORY EXAMINATION: Normal pinprick, light touch senses throughout. 5. Deep tendon reflexes were symmetric and hypoactive with absent Achilles responses. 6. Gait: The patient walked without assistance. LABORATORY DATA: CBC from 07/24/2017 revealed white blood cells of 7.4, hemoglobin 11.67, hematocrit 37.1, and platelet count 273,000. Chemistry revealed her TSH is 3.49. Troponin level is normal. Magnesium 2. Urinalysis is positive for urinary tract infections with moderate leukocyte esterase and red blood cells between 20-40. IMPRESSION: 1. History of seizure disorder of unknown etiology; however, the patient was found to have scar tissue in the mid frontal regions, probably secondary to previous head injuries and possible that be the cause of seizure. 2. Multiple medical problems include chronic obstructive pulmonary disease, asthma, hypothyroidism, hyperlipidemia, dysphagia, and urinary tract infection. 3. Multiple psychiatric problems include schizoaffective disorder, bipolar disorder, anxiety, and intermittent psychosis. RECOMMENDATIONS: 1. To obtain previous medical record and find out what the cause of seizure. 2. Continue with current medical care and continue with urinary tract infections treatment through Dr. Federica Nolan. 3. Continue with current psychiatric care initiated by Dr. Arora for underlying multiple psychotic disorders. M Lori COLINDRES MD DR: CLIFF/rashaun JOB#: [id number] / [id number]
--- NOTE | 2017-08-02 01:40 | PN ---
DATE: 07/27/2017 SUBJECTIVE: The patient has not had any recurrent seizure since admission. She is currently on Keppra at 250 mg b.i.d. and gabapentin at 300 mg t.i.d. There is a potential to add Depakote for mood stabilization. The patient denies chest pain, shortness of breath or headaches. OBJECTIVE: GENERAL: A well-developed, well-nourished white female, in no acute distress. VITAL SIGNS: Blood pressure 120/51, respiratory rate 16, pulse is 82, temperature 97.1, oxygen saturation 96% on room air. HEENT: Normocephalic, atraumatic, otherwise unremarkable. NECK: Supple. Negative for carotid bruit, lymphadenopathy or thyromegaly. LUNGS: Clear to A and P. CARDIOVASCULAR: Regular rhythm, normal S1 and S2. There is no S3, S4, or murmur. ABDOMEN: Soft. Bowel sounds are positive. No palpable mass or organomegaly or tenderness. EXTREMITIES: Negative for cyanosis, clubbing or pitting edema. NEUROLOGICAL EXAM: Mental Status: The patient is awake and alert to herself. She is disoriented to time and place. The patient does not follow commands. She does not answer any questions, but she is late through, responds verbally. It is difficult to evaluate. Language, judgment, and abstract thinking, the patient was not cooperative with the question. Cranial nerves appear to be intact. No focal motor or sensory deficits. Deep tendon reflexes were symmetric and hyperactive. Gait was normal. DIAGNOSTIC DATA: Initial nonenhanced head CT scan performed on 07/23/2017, revealed no evidence of acute intracranial process. Chest x-ray performed on 07/23/2017 revealed no evidence of acute cardiopulmonary process. An x-ray of the right wrist revealed no acute fracture, but showed degenerative changes and soft tissue swelling. IMPRESSION: 1. History of seizure disorder, etiology uncertain, probably due to previous head injuries. 2. Multiple medical problems include hyperlipidemia, hypothyroidism, and gastroesophageal reflux disease. 3. Multiple medical problems include schizoaffective disorder, depression, bipolar, anxiety. 4. Urinary tract infections. RECOMMENDATIONS: 1. Continue with current management initiated by Dr. Nolan. 2. Continue with current psychiatric care initiated by Dr. Arora. 3. Await for the previous medical records to determine the etiology of her seizure. In the meantime, we will continue with current anticonvulsants. The patient's anticonvulsants including gabapentin and Keppra. M Lori COLINDRES MD DR: CLIFF/rashaun JOB#: [id number] / [id number]
--- NOTE | 2017-08-02 01:57 | PN ---
DATE: 07/29/2017 SUBJECTIVE: The patient has been somewhat lethargic with poor appetite and generalized weakness. She has not had any recurrent seizures since. Her oral intake is deteriorating. OBJECTIVE: GENERAL: Well-developed, well-nourished female, not in acute distress. VITAL SIGNS: Blood pressure is 97/46, respiratory rate 18, pulse is 91, temperature 98.2, oxygen saturation 98% on room air. HEENT: Normocephalic, atraumatic, otherwise unremarkable. NECK: Supple. Negative for carotid bruit, lymphadenopathy or thyromegaly. LUNGS: Clear to A and P. CARDIOVASCULAR: Regular rate and rhythm, normal S1, S2. There is no S3, S4, or murmur. ABDOMEN: Soft. Bowel sounds positive. No bowel mass, organomegaly, or tenderness. EXTREMITIES: Negative for cyanosis, clubbing, pitting edema. NEUROLOGICAL EXAMINATION: Mental Status: The patient is alert to herself. She follows 1-step commands. The speech is monosyllabic and whispering sometimes. Language appeared to be Intact. Memory, judgment, abstract thinkings are fair. The patient denies hallucination or delusion. Cranial nerves are intact. Motor examination: No focal muscle bulk was seen. The tone is normal. The strength is 4/5 throughout. Sensory examination revealed normal pinprick and light touch senses. Deep tendon reflexes were symmetric and hypoactive without pathology responses. Gait: The patient is having difficulty to walk today. LABORATORY DATA: CBC revealed white cells of 9.2000, hemoglobin 12.6, hematocrit 39.6, platelet count 294,000. Chemistry with sodium of 141, potassium 3.3, chloride 108, CO2 of 21, BUN 18, creatinine 0.7, glucose 127, calcium 9.4, alkaline phosphatase is elevated at 159. Depakote level is low at 39. Dr. Arora increased the Depakote to 1000 mg ER at bedtime and will check her Depakote level after 3 days. IMPRESSION: 1. History of seizure disorder of unknown etiology; however, the patient has not had any recurrent seizures since. 2. Multiple psychiatric problems include schizoaffective disorders, bipolar disorders, anxiety, and intermittent behavior disturbances. 3. Multiple medical problems include hyperlipidemia, chronic obstructive pulmonary disease, asthma, gastroesophageal reflux disease, hypothyroidism, and urinary tract infections. 4. Hypokalemia. RECOMMENDATION: Continue with current medical and psychiatric care. M Lori COLINDRES MD DR: CLIFF/rashaun JOB#: [id number] / [id number]
--- NOTE | 2017-08-02 03:28 | PN ---
DATE: 07/28/2017 REFERRING PHYSICIAN: Dr. Ian Arora. SUBJECTIVE: The patient has not had any recurrent seizures since admission; however, she has been disorganized with intermittent confusion. The patient was started on Depakote at 500 mg at bedtime. She has been somewhat sedated. Dr. Arora has been tapering his clonazepam gradually and Dr. White is also tapering his narcotic gradually. She denies any new neurological complaints, however. OBJECTIVE: GENERAL: Well-developed, well-nourished female, not in acute distress. VITAL SIGNS: Blood pressure is 94/53, respiratory rate is 22, pulse is 69 and regular, temperature 99.1, oxygen saturation 95% on room air. HEENT: Normocephalic, atraumatic, otherwise, unremarkable. NECK: Supple. Negative for carotid bruit, lymphadenopathy or thyromegaly. LUNGS: Clear to A and P. CARDIOVASCULAR: Regular rate and rhythm. Normal S1, S2. ABDOMEN: Soft. Bowel sounds positive. EXTREMITIES: Negative for cyanosis, clubbing or pitting edema. NEUROLOGICAL: Mental status, the patient is alert and oriented to herself. Speech is still monosyllabic. She follows 1-step command, but it is very difficult to evaluate her memory, judgment and abstract thinking as the patient is not cooperative with the exam. Cranial nerves grossly intact. Motor examination, no focal muscle bulk was seen. The tone is normal. The strength is 4/5 throughout. Her sensory examination revealed normal pinprick and light touch senses. Deep tendon reflexes were symmetric and hypoactive without pathologic responses. Gait, the patient walks without assistance. IMPRESSION: 1. History of seizure disorder of unknown etiology, probably due to traumatic head injuries. 2. Multiple medical problems including chronic obstructive pulmonary disease, urinary tract infections, asthma, ____ and hyperlipidemia. 3. Multiple psychiatric problems including schizoaffective disorders, bipolar disorder and anxiety with intermittent psychosis. RECOMMENDATIONS: Continue with current management initiated by Dr. Arora and Dr. White. Her neurological examination and seizure have been stable. M Lori COLINDRES MD DR: CLIFF/rashaun JOB#: [id number] / [id number]
[2017-08-02] MEDS: LEVOTHYROXINE 75 MCG TABLET PO SCH (05:21)
[2017-08-02 06:10] VITALS: BP 128/72
[2017-08-02] MEDS: FAMOTIDINE 20 MG TABLET PO SCH ×2 (09:26→20:51)
[2017-08-02] MEDS: GABAPENTIN 300 MG CAPSULE. PO SCH ×3 (09:26→20:51)
[2017-08-02] MEDS: LIPASE/PROTEAS/AMYLAS 10/34/55 CAPSULE.DR. PO SCH ×3 (09:26→17:33)
[2017-08-02] MEDS: SODIUM CHLORIDE 5% OPHTH SOLUTION 15ML BOTTLE. OU SCH ×4 (09:26→20:52)
[2017-08-02] MEDS: LACTOBACILLUS RHAMNOSUS GG 1 CAPSULE. PO SCH ×2 (09:26→20:50)
[2017-08-02] MEDS: levETIRAcetam 250 MG TABLET PO SCH ×2 (09:26→20:51)
[2017-08-02] MEDS: BENZTROPINE MESYLATE 0.5 MG TABLET PO SCH (09:26)
[2017-08-02] MEDS: clonazePAM 0.5 MG TABLET PO SCH (09:28)
--- NOTE | 2017-08-02 10:00 | NUR ---
This RN noticed pt was limping this AM and during AM medications pt complained of wrist and ankle pain. Pts left ankle was significantly more swollen than her right ankle as well as her right wrist compared to her left wrist. Pt also had bruises on both of her wrists. Pts feet were elevated while pt was in the day room and an ice pack was applied. Dr. Nolan notified and ordered for her wrist and ankle to be wrapped with an NGUYỄN wrap. Will continue to monitor. Addendum: 08/02/17 at 1839 by TALON GROSS RN Dr. Arora ordered an xray of pts right wrist and left ankle. Will continue to monitor.
[2017-08-02 15:55] VITALS: BP 116/71
--- NOTE | 2017-08-02 15:56 | NUR ---
Behavior Intervention Response and Plan: BIRP Note: Behavior: Assumed Care of patient, patient located in Hallway at shift change. Patient exhibited the following behavior Disorganized, Restless, Compliant. Brief assessment on rounds of vital signs, medication needs, lab studies, and pain. Treatment plan problems 1-2. Intervention: Patient assessed and the following interventions initiated safety checks 15 Minute Checks Cognitive Assessment , Head to toe Assessment , Medications. Response: After interactions and interventions patient responded in the following manner, Wandering , Exit Seeking ,Disorganized. Continue to assess behaviors and condition will continue to monitor throughout the shift as needed. Patient educated on ADL's, and hand hygiene. Plan: Continue to monitor Master Treatment Plan for patient's progress toward short term goals of Decreased Agitation, Improved Mood, penitentiary goals to return to previous living setting vs placement. Continue to assess patient for changes in above assessment. Monitor for medication needs, pain, and safety concerns. Hourly rounding performed to ensure safe environment.
--- NOTE | 2017-08-02 19:52 | PDOC ---
Exam Note: Michael Note: Please also refer to the separate dictated note~for this date of service dictated separately.~Patient seen individually. Discussed the patient with Nursing staff reviewed the chart.~Reviewed interim history and current functioning. Reviewed vital signs,~Labs/ Radiology~and current medications noted below. Continue current treatment with the changes noted in the dictated addendum note Assessment: Vital Signs: Vital Signs Date Time Temp Pulse Resp B/P (MAP) Pulse Ox O2 Delivery O2 Flow Rate FiO2 08/02/17 15:55 98.2 94 16 116/71 (86) 94 07/30/17 19:39 Room Air I&O Intake and Output 08/02/17 07:00 Intake Total 565 ml Balance 565 ml Intake Oral 565 ml Current Medications: Meds: Current Medications Sodium Chloride 1,000 ml @ 1,000 mls/hr Q1H IV Last administered on 07/23/17 18:00; Start 07/23/17 at 18:00; Stop 07/23/17 at 18:59; Status DC Potassium Chloride (KCl Oral Soln) 40 meq 1X STAT PO Last administered on at 20:06; Start 07/23/17 at 19:45; Stop 07/23/17 at 19:48; Status DC Cephalexin HCl (Keflex) 500 mg 1X ONCE PO Last administered on 07/23/17at 20:10 ; Start 07/23/17 at 20:15; Stop 07/23/17 at 20:16; Status DC Cephalexin HCl (Keflex) 500 mg TID PO Last administered on 07/25/17at 19:45; Start 07/24/17 at 09:00; Stop 07/26/17 at 18:23; Status DC Aripiprazole (Abilify) 5 mg DAILY PO Last administered on 07/26/17at 08:07; Start 07/24/17 at 09:00; Stop 07/26/17 at 19:19; Status DC Benztropine Mesylate (Cogentin) 0.5 mg BID PO Last administered on 07/25/17at 19 :45; Start 07/23/17 at 21:00; Stop 07/25/17 at 21:10; Status DC Clonazepam (KlonoPIN) 0.5 mg BID PO Last administered on 07/28/17at 08:51; Start 07/23/17 at 21:00; Stop 07/28/17 at 18:19; Status DC Trazodone HCl (Desyrel) 150 mg QHS PO Last administered on 08/01/17at 21:05; Start 07/23/17 at 21:00 Hydroxyzine HCl (Atarax) 50 mg PRN Q6HRS PRN PO ANXIETY/AGITATION; Start at 21:00 Acetaminophen/ Codeine Phosphate (Tylenol #3) 1 tab QID PO Last administered on 07/31/17at 13:09; Start 07/23/17 at 21:00; Stop 07/31/17 at 18:23; Status DC Acetazolamide (Diamox) 250 mg BID PO ; Start 07/23/17 at 21:00; Stop 07/23/17 at 21:23; Status DC Famotidine (Pepcid) 20 mg BID PO Last administered on 08/02/17at 09:26; Start at 21:00 Furosemide (Lasix) 40 mg DAILY PO Last administered on 07/29/17at 09:07; Start 07/24/17 at 09:00; Stop 07/29/17 at 18:49; Status DC Gabapentin (Neurontin) 300 mg TID PO Last administered on 08/02/17at 13:54; Start 07/23/17 at 21:00 Albuterol/ Ipratropium (Duoneb) 3 ml PRN TID PRN NEB SHORTNESS OF BREATH; Start 07/23/17 at 21:00 Levetiracetam (Keppra) 250 mg BID PO Last administered on 08/02/17at 09:26; Start 07/23/17 at 21:00 Levothyroxine Sodium (Synthroid) 75 mcg DAILY07 PO Last administered on at 05:21; Start 07/24/17 at 07:00 Nystatin (Mycostatin) 1 nery PRN BID PRN TP RASH; Start 07/23/17 at 21:00 Polyethylene Glycol (miraLAX) 17 gm PRN DAILY PRN PO CONSTIPATION Last administered on 07/24/17at 12:44; Start 07/24/17 at 09:00 Sennosides (Senna) 8.6 mg PRN DAILY PRN PO CONSTIPATION Last administered on 12:44; Start 07/23/17 at 21:00 Amylase/Lipase/ Protease (Zenpep 10,000) 1 cap TIDWMEALS PO Last administered on 08/02/17 17:33; Start 07/24/17 at 08:00 Al Hydroxide/Mg Hydroxide (Mylanta Plus Xs) 30 ml PRN Q4HRS PRN PO DYSPEPSIA; Start 07/23/17 at 21:15 Sodium Chloride (Jasmeet-5) 1 drop QID OU Last administered on 08/02/17at 17:33; Start 07/23/17 at 21:00 Acetazolamide (Diamox) 250 mg BID PO Last administered on 07/29/17 09:11; Start 07/24/17 at 09:00; Stop 07/29/17 at 18:49; Status DC Lactobacillus Rhamnosus (Culturelle) 1 cap BID PO Last administered on 09:26; Start 07/24/17 at 21:00 Benztropine Mesylate (Cogentin) 0.5 mg DAILY PO Last administered on 08/02/17 09:26; Start 07/26/17 at 09:00 Divalproex Sodium (Depakote Er) 500 mg QHS PO Last administered on 07/28/17 19 :27; Start 07/25/17 at 21:30; Stop 07/29/17 at 19:19; Status DC Risperidone (RisperDAL) 0.5 mg HS PO Last administered on 08/01/17at 21:05; Start 07/26/17 at 21:00 Clonazepam (KlonoPIN) 0.25 mg BID PO Last administered on 08/01/17at 07:45; Start 07/28/17 at 21:00; Stop 08/01/17 at 20:59; Status DC Clonazepam (KlonoPIN) 0.25 mg DAILY PO Last administered on 08/02/17 09:28; Start 08/01/17 at 09:00; Stop 08/04/17 at 08:59 Divalproex Sodium (Depakote Er) 1,000 mg QHS PO Last administered on 08/01/17at 21:04; Start 07/29/17 at 21:00 Acetaminophen/ Codeine Phosphate (Tylenol #3) 1 tab PRN QID PRN PO PAIN Last administered on 07/31/17at 20:48; Start 07/31/17 at 18:30 Active Scripts Active Reported Nystatin 15 Gm Oint...g. 1 Nery TP PRN BID PRN Keppra (Levetiracetam) 250 Mg Tablet 250 Mg PO BID Neurontin (Gabapentin) 300 Mg Capsule 300 Mg PO TID Jasmeet-128 (Sodium Chloride) 15 Ml Drops 1 Drop OU QID 30 Days Maalox Advanced Suspension (Mag Hydrox/Aluminum Hyd/Simeth) 355 Ml Oral.susp 30 Ml PO PRN Q4HRS PRN Pepcid (Famotidine) 20 Mg Tablet 20 Mg PO BID 30 Days Senokot (Sennosides) 8.6 Mg Tablet 8.6 Mg PO PRN DAILY PRN Miralax (Polyethylene Glycol 3350) 119 Gm Powder 17 Gm PO PRN DAILY PRN Duoneb 0.5-3(2.5) Mg/3 Ml (Albuterol/Ipratropium) 3 Ml Ampul.neb 3 Ml NEB PRN TID PRN Hydroxyzine Pamoate 50 Mg Capsule 50 Mg PO PRN Q6HRS PRN Trazodone Hcl 150 Mg Tablet 150 Mg PO QHS Paroxetine Hcl 30 Mg Tablet 30 Mg PO DAILY Levothyroxine Sodium 75 Mcg Tablet 75 Mcg PO DAILY07 Furosemide 40 Mg Tablet 40 Mg PO DAILY Creon Dr 12,000 Units Capsule (Lipase/Protease/Amylase) 1 Each Capsule.dr 1 Cap PO TIDWMEALS Clonazepam 0.5 Mg Tablet 0.5 Mg PO BID Benztropine Mesylate 0.5 Mg Tablet 0.5 Mg PO BID Abilify (Aripiprazole) 5 Mg Tablet 5 Mg PO DAILY Acetazolamide 250 Mg Tablet 250 Mg PO BID Tylenol With Codeine #3 Tablet (Acetaminophen With Codeine) 1 Each Tablet 1 Tab PO QID I have reviewed the current psychotropics carefully including drug interactions. Risk benefit ratio favors no change other than as noted in my dictated progress note. Diagnosis: Problems: (1) Change in mental status (2) Anxiety disorder (3) Bipolar affective, mixed, sev w/ psych (4) Impulse control disorder (5) Schizoaffective disorder, chronic condition with acute exacerbation ULISSES EPPS MD Aug 02, 2017 19:52
[2017-08-02] MEDS: traZODone 150 MG TABLET. PO SCH (20:51)
[2017-08-02] MEDS: risperiDONE 0.5 MG TABLET. PO SCH (20:51)
[2017-08-02] MEDS: DIVALPROEX ER 500 MG TAB.ER.24H PO SCH (20:51)
--- NOTE | 2017-08-02 21:20 | NUR ---
Behavior Intervention Response and Plan: BIRP Note: Behavior: Assumed Care of patient, patient located in Hallway at shift change. Patient exhibited the following behavior Restless, Wandering, Exit Seeking. Brief assessment on rounds of vital signs, medication needs, lab studies, and pain. Treatment plan problems .1&2 Intervention: Patient assessed and the following interventions initiated safety checks 15 Minute Checks Cognitive Assessment , Head to toe Assessment , Medications. Response: After interactions and interventions patient responded in the following manner, Compliant , Cooperative ,Anxious. Continue to assess behaviors and condition will continue to monitor throughout the shift as needed. Patient educated on ADL's, and hand hygiene. Plan: Continue to monitor Master Treatment Plan for patient's progress toward short term goals of Decreased Anxiety, Medication Compliance, prison goals to return to previous living setting vs placement. Continue to assess patient for changes in above assessment. Monitor for medication needs, pain, and safety concerns. Hourly rounding performed to ensure safe environment.
--- NOTE | 2017-08-02 23:59 | PN ---
DATE: 07/30/2017 SUBJECTIVE: I received a call from a nursing staff because the patient has intermittent mental status changes and a somewhat behavior disturbances. Apparently, she does not have any seizure-like activities. She denies headaches or visual disturbances; however, responds to questions usually late. OBJECTIVE: GENERAL: Well-developed, well-nourished white female, not in acute distress. VITAL SIGNS: Blood pressure 115/72, respiratory rate 20, pulse is 83 and regular, temperature 98.4, oxygen saturation is 95% on room air. HEENT: Normocephalic, atraumatic, otherwise unremarkable. NECK: Supple. Negative for carotid bruit, lymphadenopathy or thyromegaly. LUNGS: Clear to A and P. CARDIOVASCULAR: Regular rate and rhythm, normal S1, S2. There is no S3, S4, or murmur. ABDOMEN: Soft. Bowel sounds positive. EXTREMITIES: Negative for cyanosis, clubbing or pitting edema. NEUROLOGIC: The patient is alert and oriented to herself. The speech is sometimes whispered and whisper volume was low volume and slow. There is no language dysfunction. Memory, judgment, and abstract thinking are impaired. The patient denies hallucination. Cranial nerves are intact. Motor Examination: No focal muscle bulk was seen. The tone was normal. The strength was 4/5 throughout. Sensory examination revealed normal pinprick and light touch senses. Deep tendon reflexes were symmetric and active without pathology responses. Gait: The patient is able to stand and walk by herself without assistance. The valproic acid is below 39, therefore, the dose has been adjusted to 1000 mg at bedtime. IMPRESSION: 1. Intermittent mental status changes, but no evidence of post seizure-like activities. 2. Multiple psychiatric disorders include schizoaffective disorders, bipolar disorder with intermittent psychosis. 3. Multiple medical problems includes seizure disorder of unknown etiology, probably due to head injuries, hyperlipidemia, hypothyroidism, asthma, chronic obstructive pulmonary disease. RECOMMENDATIONS: Continue with current psychiatric and medical care. Should avoid sedation as much as possible. M Lori COLINDRES MD DR: CLIFF/rashaun JOB#: [id number] / [id number]
--- NOTE | 2017-08-03 00:51 | PN ---
DATE: 08/02/2017 NEUROLOGICAL PROGRESS NOTE SUBJECTIVE: I was called twice by a nursing staff because the patient had a seizure-like activity. She became unresponsive for few minutes with the first event with confusion and disorientation. The patient had some tremor on the upper extremities, more prominent on the right side. The patient did not recall the event. OBJECTIVE: GENERAL: Well-developed, well-nourished white female, not in acute distress. VITAL SIGNS: Blood pressure 130s/70s, respiratory rate 20, pulse is 93 and regular, temperature 99.4, oxygen saturation 92% on room air. HEENT: Normocephalic, atraumatic, otherwise unremarkable. NECK: Supple, negative for carotid bruit, lymphadenopathy, or thyromegaly. LUNGS: Clear to A and P. CARDIOVASCULAR: Regular rate and rhythm, normal S1-S2. ABDOMEN: Soft. Bowel sounds positive. EXTREMITIES: Negative for cyanosis, clubbing, or pitting edema. NEUROLOGICAL EXAM: Mental Status: The patient is alert to herself. Speech is slow with low volume, but is late in response. She sometimes follows 1-step commands, but hardly responds quickly. Memory, judgment, and abstracting thinking are impaired. Cranial nerves are intact. Motor Examination: No focal muscle bulk and the strength was 4/5 throughout. Sensory examination revealed normal pinprick and light touch senses. Deep tendon reflexes were symmetric and hypoactive with absent Achilles responses. Gait: The patient was able to stand up and walk without assistance. LABORATORY DATA: Depakote level is therapeutic at 77. CBC revealed white blood cells of 9.2000, hemoglobin 5, hematocrit 12.4, platelet count 263,000. Chemistry: Sodium 142, potassium 3.7, chloride 108, CO2 24, BUN 11, creatinine 0.8, glucose 133, calcium 9.1, elevated alkaline phosphatase at 157. IMPRESSION: 1. Questionable seizure-like activities with postictal confusion. 2. Multiple psychiatric disorders include schizoaffective disorders, bipolar disorders, and anxiety with intermittent psychosis. 3. Multiple medical problems include hypothyroidism, chronic obstructive pulmonary disease, hyperlipidemia, and a history of seizure disorder. RECOMMENDATIONS: 1. Continue with current medical and psychiatric care. 2. We will check Keppra level and continue with current management initiated by Dr. Arora. M Lori COLINDRES MD DR: CLIFF/rashaun JOB#: [id number] / [id number]
[2017-08-03] MEDS: ACETAMINOPHEN/CODEINE 300/30MG TABLET PO PRN ×2 (01:27→14:49)
[2017-08-03] MEDS: LEVOTHYROXINE 75 MCG TABLET PO SCH (05:43)
[2017-08-03 06:05] VITALS: BP 121/75
[2017-08-03] MEDS: LIPASE/PROTEAS/AMYLAS 10/34/55 CAPSULE.DR. PO SCH ×3 (08:38→17:37)
[2017-08-03] MEDS: levETIRAcetam 250 MG TABLET PO SCH ×2 (08:38→19:04)
[2017-08-03] MEDS: BENZTROPINE MESYLATE 0.5 MG TABLET PO SCH (08:38)
[2017-08-03] MEDS: GABAPENTIN 300 MG CAPSULE. PO SCH ×3 (08:38→19:04)
[2017-08-03] MEDS: LACTOBACILLUS RHAMNOSUS GG 1 CAPSULE. PO SCH ×2 (08:38→19:04)
[2017-08-03] MEDS: FAMOTIDINE 20 MG TABLET PO SCH ×2 (08:38→19:04)
[2017-08-03] MEDS: clonazePAM 0.5 MG TABLET PO SCH (08:40)
[2017-08-03] MEDS: SODIUM CHLORIDE 5% OPHTH SOLUTION 15ML BOTTLE. OU SCH ×4 (08:41→19:34)
--- NOTE | 2017-08-03 10:20 | NUR ---
Pt took staff paperwork in the day room and refused to give it back, became agitated and could not be redirected. Pt escorted to hallway for a moment to compose herself. No PRN necessary.
--- NOTE | 2017-08-03 11:38 | RAD ---
Two-view left ankle study History: Fall with swelling and pain. Findings: Diffuse soft tissue swelling is seen. No acute fracture or dislocation or osteolytic process is seen. The mortise ankle joint is intact. Mortise ankle joint effusion is seen. Prominent plantar spur of the calcaneus is seen. IMPRESSION: Soft tissue swelling and mortise ankle joint effusion. This could be due to a ligament injury. No acute fracture is seen.
[2017-08-03] MEDS: hydrOXYzine HCL 25 MG TABLET PO PRN (11:54)
--- NOTE | 2017-08-03 11:58 | RAD ---
Right wrist, 3 views, 08/03/1999 813: History: Fall, wrist swelling Comparison is made to a study from 07/24/2017. There is severe patchy bony demineralization. There is moderate degenerative change at the radiocarpal articulation as well as multiple intercarpal and MCP joints. No acute fracture or destructive bony lesion is seen. There is moderate diffuse soft tissue swelling. Similar findings were present on the previous study. IMPRESSION: 1. Patchy bony demineralization. 2. Moderately severe degenerative changes. 3. No acute bony abnormality is detected.
--- NOTE | 2017-08-03 11:59 | NUR ---
Pt yelling at fellow pt's in hallway and calling them names unprovoked. Unable to redirect. Pt escorted to hallway and given PRN. Will continue to monitor.
[2017-08-03 16:26] VITALS: BP 121/65
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
[2017-08-03] MEDS: traZODone 150 MG TABLET. PO SCH (19:04)
[2017-08-03] MEDS: DIVALPROEX ER 500 MG TAB.ER.24H PO SCH (19:04)
[2017-08-03] MEDS: risperiDONE 0.5 MG TABLET. PO SCH (19:05)
[2017-08-03] MEDS: MIRTAZAPINE 7.5 MG TABLET. PO SCH (19:33)
--- NOTE | 2017-08-03 19:54 | PDOC ---
Exam Note: Michael Note: Please also refer to the separate dictated note~for this date of service dictated separately.~Patient seen individually. Discussed the patient with Nursing staff reviewed the chart.~Reviewed interim history and current functioning. Reviewed vital signs,~Labs/ Radiology~and current medications noted below. Continue current treatment with the changes noted in the dictated addendum note Assessment: Vital Signs: Vital Signs Date Time Temp Pulse Resp B/P (MAP) Pulse Ox O2 Delivery O2 Flow Rate FiO2 08/03/17 16:26 98.3 75 16 121/65 (83) 93 08/03/17 14:49 Room Air I&O Intake and Output 08/03/17 07:00 Intake Total 840 ml Balance 840 ml Intake Oral 840 ml # Voids 1 # Bowel Movements 1 Current Medications: Meds: Current Medications Sodium Chloride 1,000 ml @ 1,000 mls/hr Q1H IV Last administered on 07/23/17 18:00; Start 07/23/17 at 18:00; Stop 07/23/17 at 18:59; Status DC Potassium Chloride (KCl Oral Soln) 40 meq 1X STAT PO Last administered on at 20:06; Start 07/23/17 at 19:45; Stop 07/23/17 at 19:48; Status DC Cephalexin HCl (Keflex) 500 mg 1X ONCE PO Last administered on 07/23/17 20:10 ; Start 07/23/17 at 20:15; Stop 07/23/17 at 20:16; Status DC Cephalexin HCl (Keflex) 500 mg TID PO Last administered on 07/25/17at 19:45; Start 07/24/17 at 09:00; Stop 07/26/17 at 18:23; Status DC Aripiprazole (Abilify) 5 mg DAILY PO Last administered on 07/26/17at 08:07; Start 07/24/17 at 09:00; Stop 07/26/17 at 19:19; Status DC Benztropine Mesylate (Cogentin) 0.5 mg BID PO Last administered on 07/25/17at 19 :45; Start 07/23/17 at 21:00; Stop 07/25/17 at 21:10; Status DC Clonazepam (KlonoPIN) 0.5 mg BID PO Last administered on 07/28/17at 08:51; Start 07/23/17 at 21:00; Stop 07/28/17 at 18:19; Status DC Trazodone HCl (Desyrel) 150 mg QHS PO Last administered on 08/03/17 19:04; Start 07/23/17 at 21:00 Hydroxyzine HCl (Atarax) 50 mg PRN Q6HRS PRN PO ANXIETY/AGITATION Last administered on 08/03/17 11:54; Start 07/23/17 at 21:00 Acetaminophen/ Codeine Phosphate (Tylenol #3) 1 tab QID PO Last administered on 07/31/17 13:09; Start 07/23/17 at 21:00; Stop 07/31/17 at 18:23; Status DC Acetazolamide (Diamox) 250 mg BID PO ; Start 07/23/17 at 21:00; Stop 07/23/17 at 21:23; Status DC Famotidine (Pepcid) 20 mg BID PO Last administered on 08/03/17 19:04; Start at 21:00 Furosemide (Lasix) 40 mg DAILY PO Last administered on 07/29/17 09:07; Start 07/24/17 at 09:00; Stop 07/29/17 at 18:49; Status DC Gabapentin (Neurontin) 300 mg TID PO Last administered on 08/03/17at 19:04; Start 07/23/17 at 21:00 Albuterol/ Ipratropium (Duoneb) 3 ml PRN TID PRN NEB SHORTNESS OF BREATH; Start 07/23/17 at 21:00 Levetiracetam (Keppra) 250 mg BID PO Last administered on 08/03/17 19:04; Start 07/23/17 at 21:00 Levothyroxine Sodium (Synthroid) 75 mcg DAILY07 PO Last administered on at 05:43; Start 07/24/17 at 07:00 Nystatin (Mycostatin) 1 nery PRN BID PRN TP RASH; Start 07/23/17 at 21:00 Polyethylene Glycol (miraLAX) 17 gm PRN DAILY PRN PO CONSTIPATION Last administered on 07/24/17at 12:44; Start 07/24/17 at 09:00 Sennosides (Senna) 8.6 mg PRN DAILY PRN PO CONSTIPATION Last administered on 12:44; Start 07/23/17 at 21:00 Amylase/Lipase/ Protease (Zenpep 10,000) 1 cap TIDWMEALS PO Last administered on 08/03/17 17:37; Start 07/24/17 at 08:00 Al Hydroxide/Mg Hydroxide (Mylanta Plus Xs) 30 ml PRN Q4HRS PRN PO DYSPEPSIA; Start 07/23/17 at 21:15 Sodium Chloride (Jasmeet-5) 1 drop QID OU Last administered on 08/03/17 19:34; Start 07/23/17 at 21:00 Acetazolamide (Diamox) 250 mg BID PO Last administered on 07/29/17 09:11; Start 07/24/17 at 09:00; Stop 07/29/17 at 18:49; Status DC Lactobacillus Rhamnosus (Culturelle) 1 cap BID PO Last administered on 19:04; Start 07/24/17 at 21:00 Benztropine Mesylate (Cogentin) 0.5 mg DAILY PO Last administered on 08/03/17 08:38; Start 07/26/17 at 09:00 Divalproex Sodium (Depakote Er) 500 mg QHS PO Last administered on 07/28/17 19 :27; Start 07/25/17 at 21:30; Stop 07/29/17 at 19:19; Status DC Risperidone (RisperDAL) 0.5 mg HS PO Last administered on 08/03/17at 19:05; Start 07/26/17 at 21:00 Clonazepam (KlonoPIN) 0.25 mg BID PO Last administered on 08/01/17 07:45; Start 07/28/17 at 21:00; Stop 08/01/17 at 20:59; Status DC Clonazepam (KlonoPIN) 0.25 mg DAILY PO Last administered on 08/03/17 08:40; Start 08/01/17 at 09:00; Stop 08/04/17 at 08:59 Divalproex Sodium (Depakote Er) 1,000 mg QHS PO Last administered on 08/03/17 19:04; Start 07/29/17 at 21:00 Acetaminophen/ Codeine Phosphate (Tylenol #3) 1 tab PRN QID PRN PO PAIN Last administered on 08/03/17at 14:49; Start 07/31/17 at 18:30 Mirtazapine (Remeron) 7.5 mg QHS PO Last administered on 08/03/17at 19:33; Start 08/03/17 at 21:00 Active Scripts Active Reported Nystatin 15 Gm Oint...g. 1 Nery TP PRN BID PRN Keppra (Levetiracetam) 250 Mg Tablet 250 Mg PO BID Neurontin (Gabapentin) 300 Mg Capsule 300 Mg PO TID Jasmeet-128 (Sodium Chloride) 15 Ml Drops 1 Drop OU QID 30 Days Maalox Advanced Suspension (Mag Hydrox/Aluminum Hyd/Simeth) 355 Ml Oral.susp 30 Ml PO PRN Q4HRS PRN Pepcid (Famotidine) 20 Mg Tablet 20 Mg PO BID 30 Days Senokot (Sennosides) 8.6 Mg Tablet 8.6 Mg PO PRN DAILY PRN Miralax (Polyethylene Glycol 3350) 119 Gm Powder 17 Gm PO PRN DAILY PRN Duoneb 0.5-3(2.5) Mg/3 Ml (Albuterol/Ipratropium) 3 Ml Ampul.neb 3 Ml NEB PRN TID PRN Hydroxyzine Pamoate 50 Mg Capsule 50 Mg PO PRN Q6HRS PRN Trazodone Hcl 150 Mg Tablet 150 Mg PO QHS Paroxetine Hcl 30 Mg Tablet 30 Mg PO DAILY Levothyroxine Sodium 75 Mcg Tablet 75 Mcg PO DAILY07 Furosemide 40 Mg Tablet 40 Mg PO DAILY Creon 12,000 Units Capsule (Lipase/Protease/Amylase) 1 Each Capsule.dr 1 Cap PO TIDWMEALS Clonazepam 0.5 Mg Tablet 0.5 Mg PO BID Benztropine Mesylate 0.5 Mg Tablet 0.5 Mg PO BID Abilify (Aripiprazole) 5 Mg Tablet 5 Mg PO DAILY Acetazolamide 250 Mg Tablet 250 Mg PO BID Tylenol With Codeine #3 Tablet (Acetaminophen With Codeine) 1 Each Tablet 1 Tab PO QID I have reviewed the current psychotropics carefully including drug interactions. Risk benefit ratio favors no change other than as noted in my dictated progress note. Diagnosis: Problems: (1) Change in mental status (2) Anxiety disorder (3) Bipolar affective, mixed, sev w/ psych (4) Impulse control disorder (5) Schizoaffective disorder, chronic condition with acute exacerbation ULISSES EPPS MD Aug 03, 2017 19:54
--- NOTE | 2017-08-03 21:41 | NUR ---
Behavior Intervention Response and Plan: BIRP Note: Behavior: Assumed Care of patient, patient located in Hallway at shift change. Patient exhibited the following behavior Restless, Disorganized, Agitated. Brief assessment on rounds of vital signs, medication needs, lab studies, and pain. Treatment plan problems .1&2 Intervention: Patient assessed and the following interventions initiated safety checks 15 Minute Checks Cognitive Assessment , Head to toe Assessment , Medications. Response: After interactions and interventions patient responded in the following manner, Compliant , Cooperative ,Anxious. Continue to assess behaviors and condition will continue to monitor throughout the shift as needed. Patient educated on ADL's, and hand hygiene. Plan: Continue to monitor Master Treatment Plan for patient's progress toward short term goals of Decreased Agitation, Decreased Anxiety, penitentiary goals to return to previous living setting vs placement. Continue to assess patient for changes in above assessment. Monitor for medication needs, pain, and safety concerns. Hourly rounding performed to ensure safe environment.
--- NOTE | 2017-08-03 23:07 | PN ---
DATE: 08/02/2017 This is a late entry of 08/02/2017 and covers the elements not covered in my initial note of 08/02/2017. SUBJECTIVE: I met with the patient in the evening of 08/02/2017. The patient had a fall morning of 08/02/2017, has some swelling of her wrist and ankle, we will check an x-ray. Her speech is more clear per nursing report, seems to be comprehending things a little better, previous evening she was combative with cares, takes her medications whole, somewhat irritable. REVIEW OF SYSTEMS: No CV, , pulmonary, eye, ENT system symptoms on review. Reliability poor. MENTAL STATUS EXAM: Oriented to herself. Insight, judgment, recent memory is impaired. Attention span short. Language function intact. Mood and affect less labile. LABORATORY DATA: Reviewed. IMPRESSION: Schizoaffective disorder, bipolar type, mixed with psychotic features; cognitive disorder, unspecified. PLAN: Taper the Klonopin. Maintain rest of the psychotropics unchanged. Valproic acid level is 77. MAN Garret EPPS MD DR: KEMAR/rashaun JOB#: [id number] / [id number]
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
[2017-08-04] MEDS: LEVOTHYROXINE 75 MCG TABLET PO SCH (05:36)
[2017-08-04 05:40] VITALS: BP 118/55
[2017-08-04] MEDS: NYSTATIN 100,000 UNIT/GM TOPICAL OINTMENT 15GM TUBE. TP PRN ×2 (05:41→07:35)
[2017-08-04] MEDS: FAMOTIDINE 20 MG TABLET PO SCH ×2 (08:26→20:30)
[2017-08-04] MEDS: BENZTROPINE MESYLATE 0.5 MG TABLET PO SCH (08:26)
[2017-08-04] MEDS: GABAPENTIN 300 MG CAPSULE. PO SCH ×3 (08:26→20:30)
[2017-08-04] MEDS: LIPASE/PROTEAS/AMYLAS 10/34/55 CAPSULE.DR. PO SCH ×3 (08:26→16:24)
[2017-08-04] MEDS: LACTOBACILLUS RHAMNOSUS GG 1 CAPSULE. PO SCH ×2 (08:26→20:29)
[2017-08-04] MEDS: levETIRAcetam 250 MG TABLET PO SCH ×2 (08:26→20:30)
[2017-08-04] MEDS: SODIUM CHLORIDE 5% OPHTH SOLUTION 15ML BOTTLE. OU SCH ×4 (08:28→21:00)
[2017-08-04] MEDS: ACETAMINOPHEN/CODEINE 300/30MG TABLET PO PRN ×2 (08:28→12:39)
--- NOTE | 2017-08-04 12:27 | NUR ---
Pt has a history of excoriation under breasts. Dr. Nolan notified that pt again has this issue. Pt showered and nystatin cream and powder applied. Pillow cases were placed in an attempt to prevent rubbing.
--- NOTE | 2017-08-04 12:54 | NUR ---
Spoke with Hanh in [employer] about retrieving a boot to immobilizing pt's ankle per Dr. Nolan. One will be delivered from [facility] tomorrow morning after 0930. In the mean time the pt should elevate the foot and apply ice, and an MRI to be performed upon discharge also per Dr. Nolan. Pt has Tylenol III QID available for pain.
--- NOTE | 2017-08-04 15:00 | NUR ---
WEEKLY THERAPEUTIC RECREATION NOTE Date of Admission: 07/23/2017 Date of AT Assessment: 07/26/2017 Goal aimed: to increase sensory stimulation Initial goal: Pt. will participate in all individual and group sessions focused on sensory stimulation. Weekly progress towards goal: did not meet Group participation level: zero to minimal Behaviors observed: wandering, taking clothes off and walking servin, poor personal boundaries, difficult to engage and redirect Plan: no changes to goal
--- NOTE | 2017-08-04 15:44 | NUR ---
Behavior Intervention Response and Plan: BIRP Note: Behavior: Assumed Care of patient, patient located in Hallway at shift change. Patient exhibited the following behavior Restless, Disorganized, Compliant. Brief assessment on rounds of vital signs, medication needs, lab studies, and pain. Treatment plan problems Altered thought process and fall risk. Intervention: Patient assessed and the following interventions initiated safety checks 15 Minute Checks Head to toe Assessment , Cognitive Assessment , Medications. Response: After interactions and interventions patient responded in the following manner, Restless , Disorganized ,Irritable. Continue to assess behaviors and condition will continue to monitor throughout the shift as needed. Patient educated on ADL's, and hand hygiene. Plan: Continue to monitor Master Treatment Plan for patient's progress toward short term goals of Decreased Agitation, Improved Mood, mcfp goals to return to previous living setting vs placement. Continue to assess patient for changes in above assessment. Monitor for medication needs, pain, and safety concerns. Hourly rounding performed to ensure safe environment.
[2017-08-04 16:33] VITALS: BP 98/54
--- NOTE | 2017-08-04 17:00 | NUR ---
wound care patient seen per wound care consult. see wound assessment. patient has redness under bilateral breasts, redness that looks like yeast, patient currently being treated with nystatin. recommendations of continuing with the nystatin and applying an absorbing sophie under the breast. notified AUROR[facility] الع[facility]اقي about the recommendations. wound care will continue to f/u for possible changes.
--- NOTE | 2017-08-04 19:49 | PDOC ---
Exam Note: Michael Note: Please also refer to the separate dictated note~for this date of service dictated separately.~Patient seen individually. Discussed the patient with Nursing staff reviewed the chart.~Reviewed interim history and current functioning. Reviewed vital signs,~Labs/ Radiology~and current medications noted below. Continue current treatment with the changes noted in the dictated addendum note Assessment: Vital Signs: Vital Signs Date Time Temp Pulse Resp B/P (MAP) Pulse Ox O2 Delivery O2 Flow Rate FiO2 08/04/17 16:33 98.7 96 19 98/54 (69) 93 08/04/17 13:57 Room Air I&O Intake and Output 08/04/17 07:00 Intake Total 780 ml Balance 780 ml Intake Oral 780 ml # Voids 1 Current Medications: Meds: Current Medications Sodium Chloride 1,000 ml @ 1,000 mls/hr Q1H IV Last administered on 07/23/17 18:00; Start 07/23/17 at 18:00; Stop 07/23/17 at 18:59; Status DC Potassium Chloride (KCl Oral Soln) 40 meq 1X STAT PO Last administered on at 20:06; Start 07/23/17 at 19:45; Stop 07/23/17 at 19:48; Status DC Cephalexin HCl (Keflex) 500 mg 1X ONCE PO Last administered on 07/23/17at 20:10 ; Start 07/23/17 at 20:15; Stop 07/23/17 at 20:16; Status DC Cephalexin HCl (Keflex) 500 mg TID PO Last administered on 07/25/17at 19:45; Start 07/24/17 at 09:00; Stop 07/26/17 at 18:23; Status DC Aripiprazole (Abilify) 5 mg DAILY PO Last administered on 07/26/17at 08:07; Start 07/24/17 at 09:00; Stop 07/26/17 at 19:19; Status DC Benztropine Mesylate (Cogentin) 0.5 mg BID PO Last administered on 07/25/17at 19 :45; Start 07/23/17 at 21:00; Stop 07/25/17 at 21:10; Status DC Clonazepam (KlonoPIN) 0.5 mg BID PO Last administered on 07/28/17at 08:51; Start 07/23/17 at 21:00; Stop 07/28/17 at 18:19; Status DC Trazodone HCl (Desyrel) 150 mg QHS PO Last administered on 08/03/17at 19:04; Start 07/23/17 at 21:00 Hydroxyzine HCl (Atarax) 50 mg PRN Q6HRS PRN PO ANXIETY/AGITATION Last administered on 08/03/17at 11:54; Start 07/23/17 at 21:00 Acetaminophen/ Codeine Phosphate (Tylenol #3) 1 tab QID PO Last administered on 07/31/17 13:09; Start 07/23/17 at 21:00; Stop 07/31/17 at 18:23; Status DC Acetazolamide (Diamox) 250 mg BID PO ; Start 07/23/17 at 21:00; Stop 07/23/17 at 21:23; Status DC Famotidine (Pepcid) 20 mg BID PO Last administered on 08/04/17 08:26; Start at 21:00 Furosemide (Lasix) 40 mg DAILY PO Last administered on 07/29/17 09:07; Start 07/24/17 at 09:00; Stop 07/29/17 at 18:49; Status DC Gabapentin (Neurontin) 300 mg TID PO Last administered on 08/04/17at 12:35; Start 07/23/17 at 21:00 Albuterol/ Ipratropium (Duoneb) 3 ml PRN TID PRN NEB SHORTNESS OF BREATH; Start 07/23/17 at 21:00 Levetiracetam (Keppra) 250 mg BID PO Last administered on 08/04/17 08:26; Start 07/23/17 at 21:00 Levothyroxine Sodium (Synthroid) 75 mcg DAILY07 PO Last administered on 05:36; Start 07/24/17 at 07:00 Nystatin (Mycostatin) 1 nery PRN BID PRN TP RASH Last administered on 08/04/17 07:35; Start 07/23/17 at 21:00 Polyethylene Glycol (miraLAX) 17 gm PRN DAILY PRN PO CONSTIPATION Last administered on 07/24/17at 12:44; Start 07/24/17 at 09:00 Sennosides (Senna) 8.6 mg PRN DAILY PRN PO CONSTIPATION Last administered on 12:44; Start 07/23/17 at 21:00 Amylase/Lipase/ Protease (Zenpep 10,000) 1 cap TIDWMEALS PO Last administered on 08/04/17at 16:24; Start 07/24/17 at 08:00 Al Hydroxide/Mg Hydroxide (Mylanta Plus Xs) 30 ml PRN Q4HRS PRN PO DYSPEPSIA; Start 07/23/17 at 21:15 Sodium Chloride (Jasmeet-5) 1 drop QID OU Last administered on 08/04/17 16:25; Start 07/23/17 at 21:00 Acetazolamide (Diamox) 250 mg BID PO Last administered on 07/29/17 09:11; Start 07/24/17 at 09:00; Stop 07/29/17 at 18:49; Status DC Lactobacillus Rhamnosus (Culturelle) 1 cap BID PO Last administered on at 08:26; Start 07/24/17 at 21:00 Benztropine Mesylate (Cogentin) 0.5 mg DAILY PO Last administered on 08/04/17 08:26; Start 07/26/17 at 09:00; Stop 08/04/17 at 18:47; Status DC Divalproex Sodium (Depakote Er) 500 mg QHS PO Last administered on 07/28/17at 19 :27; Start 07/25/17 at 21:30; Stop 07/29/17 at 19:19; Status DC Risperidone (RisperDAL) 0.5 mg HS PO Last administered on 08/03/17at 19:05; Start 07/26/17 at 21:00; Stop 08/04/17 at 18:47; Status DC Clonazepam (KlonoPIN) 0.25 mg BID PO Last administered on 08/01/17at 07:45; Start 07/28/17 at 21:00; Stop 08/01/17 at 20:59; Status DC Clonazepam (KlonoPIN) 0.25 mg DAILY PO Last administered on 08/03/17at 08:40; Start 08/01/17 at 09:00; Stop 08/04/17 at 08:59; Status DC Divalproex Sodium (Depakote Er) 1,000 mg QHS PO Last administered on 08/03/17at 19:04; Start 07/29/17 at 21:00 Acetaminophen/ Codeine Phosphate (Tylenol #3) 1 tab PRN QID PRN PO PAIN Last administered on 08/04/17at 12:39; Start 07/31/17 at 18:30 Mirtazapine (Remeron) 7.5 mg QHS PO Last administered on 08/03/17at 19:33; Start 08/03/17 at 21:00 Nystatin (Nystop) 1 nery BID TP ; Start 08/04/17 at 21:00 Risperidone (RisperDAL) 2.75 mg HS PO ; Start 08/04/17 at 21:00; Stop 08/04/17 at 21:00; Status DC Risperidone (RisperDAL) 0.75 mg HS PO ; Start 08/04/17 at 21:00 Active Scripts Active Reported Nystatin 15 Gm Oint...g. 1 Nery TP PRN BID PRN Keppra (Levetiracetam) 250 Mg Tablet 250 Mg PO BID Neurontin (Gabapentin) 300 Mg Capsule 300 Mg PO TID Jasmeet-128 (Sodium Chloride) 15 Ml Drops 1 Drop OU QID 30 Days Maalox Advanced Suspension (Mag Hydrox/Aluminum Hyd/Simeth) 355 Ml Oral.susp 30 Ml PO PRN Q4HRS PRN Pepcid (Famotidine) 20 Mg Tablet 20 Mg PO BID 30 Days Senokot (Sennosides) 8.6 Mg Tablet 8.6 Mg PO PRN DAILY PRN Miralax (Polyethylene Glycol 3350) 119 Gm Powder 17 Gm PO PRN DAILY PRN Duoneb 0.5-3(2.5) Mg/3 Ml (Albuterol/Ipratropium) 3 Ml Ampul.neb 3 Ml NEB PRN TID PRN Hydroxyzine Pamoate 50 Mg Capsule 50 Mg PO PRN Q6HRS PRN Trazodone Hcl 150 Mg Tablet 150 Mg PO QHS Paroxetine Hcl 30 Mg Tablet 30 Mg PO DAILY Levothyroxine Sodium 75 Mcg Tablet 75 Mcg PO DAILY07 Furosemide 40 Mg Tablet 40 Mg PO DAILY Creon Dr 12,000 Units Capsule (Lipase/Protease/Amylase) 1 Each Capsule.dr 1 Cap PO TIDWMEALS Clonazepam 0.5 Mg Tablet 0.5 Mg PO BID Benztropine Mesylate 0.5 Mg Tablet 0.5 Mg PO BID Abilify (Aripiprazole) 5 Mg Tablet 5 Mg PO DAILY Acetazolamide 250 Mg Tablet 250 Mg PO BID Tylenol With Codeine #3 Tablet (Acetaminophen With Codeine) 1 Each Tablet 1 Tab PO QID I have reviewed the current psychotropics carefully including drug interactions. Risk benefit ratio favors no change other than as noted in my dictated progress note. Diagnosis: Problems: (1) Change in mental status (2) Anxiety disorder (3) Bipolar affective, mixed, sev w/ psych (4) Impulse control disorder (5) Schizoaffective disorder, chronic condition with acute exacerbation ULISSES EPPS MD Aug 04, 2017 19:49
[2017-08-04] MEDS: traZODone 150 MG TABLET. PO SCH (20:29)
[2017-08-04] MEDS: DIVALPROEX ER 500 MG TAB.ER.24H PO SCH (20:29)
[2017-08-04] MEDS: risperiDONE 0.5 MG TABLET. PO SCH (20:30)
[2017-08-04] MEDS: MIRTAZAPINE 7.5 MG TABLET. PO SCH (20:30)
[2017-08-04] MEDS: NYSTATIN TOPICAL POWDER 15GM BOTTLE. TP SCH (20:32)
[2017-08-04] MEDS ORDERED: risperiDONE 0.5 MG TABLET. PO SCH (21:00)
--- NOTE | 2017-08-04 21:34 | NUR ---
Behavior Intervention Response and Plan: BIRP Note: Behavior: Assumed Care of patient, patient located in Hallway at shift change. Patient exhibited the following behavior Calm, Disorganized, Wandering. Brief assessment on rounds of vital signs, medication needs, lab studies, and pain. Treatment plan problems .1&2 Intervention: Patient assessed and the following interventions initiated safety checks 15 Minute Checks Cognitive Assessment , Head to toe Assessment , Medications. Response: After interactions and interventions patient responded in the following manner, Able to Focus on Task , Compliant ,Cooperative. Continue to assess behaviors and condition will continue to monitor throughout the shift as needed. Patient educated on ADL's, and hand hygiene. Plan: Continue to monitor Master Treatment Plan for patient's progress toward short term goals of Decreased Anxiety, Decreased Agitation, fdc goals to return to previous living setting vs placement. Continue to assess patient for changes in above assessment. Monitor for medication needs, pain, and safety concerns. Hourly rounding performed to ensure safe environment.
--- NOTE | 2017-08-04 22:26 | PN ---
DATE: 08/03/2017 PSYCHIATRIC PROGRESS NOTE This late entry 08/03/2017 covers elements, not covered in my initial note of 08/03/2017. I met with the patient evening of 08/03/2017. The patient slept 3 hours previous evening, has had a difficult day arguing with someone when no one was there. She had to be in the best hallway isolated from the others grabbing, ripping the name badge off staff members, received Atarax at 11:54 a.m. and then Tylenol No. 3. REVIEW OF SYSTEMS: No CV, , pulmonary, eye, ENT system symptoms on review. Reliability poor. MENTAL STATUS EXAM: Oriented to herself. Insight, judgment, recent and remote memory, attention, concentration, fund of knowledge poor, consistent with her diagnosis. IMPRESSION: Schizoaffective disorder, bipolar type; cognitive disorder, unspecified. PLAN: Start Remeron 7.5 mg p.o. at bedtime on account of ongoing insomnia. Maintain rest unchanged. Neurology followup with Dr. Burton. ULISSES EPPS MD DR: KEMAR/rashaun JOB#: [id number] / [id number]
[2017-08-05] MEDS: LEVOTHYROXINE 75 MCG TABLET PO SCH (05:51)
[2017-08-05] MEDS: ACETAMINOPHEN/CODEINE 300/30MG TABLET PO PRN (05:51)
[2017-08-05 06:16] VITALS: BP 93/68
[2017-08-05] MEDS: FAMOTIDINE 20 MG TABLET PO SCH ×2 (08:11→20:03)
[2017-08-05] MEDS: LIPASE/PROTEAS/AMYLAS 10/34/55 CAPSULE.DR. PO SCH ×3 (08:11→16:21)
[2017-08-05] MEDS: LACTOBACILLUS RHAMNOSUS GG 1 CAPSULE. PO SCH ×2 (08:11→20:03)
[2017-08-05] MEDS: GABAPENTIN 300 MG CAPSULE. PO SCH ×3 (08:11→20:03)
[2017-08-05] MEDS: levETIRAcetam 250 MG TABLET PO SCH ×2 (08:11→20:04)
[2017-08-05] MEDS: SODIUM CHLORIDE 5% OPHTH SOLUTION 15ML BOTTLE. OU SCH ×4 (09:01→20:03)
[2017-08-05] MEDS: NYSTATIN TOPICAL POWDER 15GM BOTTLE. TP SCH ×2 (09:01→20:03)
--- NOTE | 2017-08-05 11:35 | NUR ---
patient had her top dentures in her hand last night playing with them. Unable to locate dentures this morning. Patient unable to state what she did with them. Addendum: 08/05/17 at 1308 by MEHUL DE LA CRUZ RN patients dentures were found in a peers trash bag. (room#[id number])
--- NOTE | 2017-08-05 11:38 | NUR ---
Behavior Intervention Response and Plan: BIRP Note: Behavior: Assumed Care of patient, patient located in Hallway at shift change. Patient exhibited the following behavior Wandering, Restless, Disorganized. Brief assessment on rounds of vital signs, medication needs, lab studies, and pain. Treatment plan problems 1 and 2. Intervention: Patient assessed and the following interventions initiated safety checks 15 Minute Checks Cognitive Assessment , Head to toe Assessment , Medications. Response: After interactions and interventions patient responded in the following manner, Disorganized , Wandering ,Compliant. Continue to assess behaviors and condition will continue to monitor throughout the shift as needed. Patient educated on ADL's, and hand hygiene. Plan: Continue to monitor Master Treatment Plan for patient's progress toward short term goals of Decreased Agitation, Decreased Aggression, longterm goals to return to previous living setting vs placement. Continue to assess patient for changes in above assessment. Monitor for medication needs, pain, and safety concerns. Hourly rounding performed to ensure safe environment.
--- NOTE | 2017-08-05 13:18 | NUR ---
SW called and spoke with Shante at pt facility, SW will fax updated notes to facility.
[2017-08-05 16:19] VITALS: BP 143/90
--- NOTE | 2017-08-05 19:43 | PDOC ---
Exam Note: Michael Note: Please also refer to the separate dictated note~for this date of service dictated separately.~Patient seen individually. Discussed the patient with Nursing staff reviewed the chart.~Reviewed interim history and current functioning. Reviewed vital signs,~Labs/ Radiology~and current medications noted below. Continue current treatment with the changes noted in the dictated addendum note Assessment: Vital Signs: Vital Signs Date Time Temp Pulse Resp B/P (MAP) Pulse Ox O2 Delivery O2 Flow Rate FiO2 08/05/17 16:19 98.7 90 20 143/90 (107) 97 Room Air I&O Intake and Output 08/05/17 07:00 Intake Total 960 ml Balance 960 ml Intake Oral 960 ml # Voids 1 # Bowel Movements 1 Current Medications: Meds: Current Medications Sodium Chloride 1,000 ml @ 1,000 mls/hr Q1H IV Last administered on 07/23/17 18:00; Start 07/23/17 at 18:00; Stop 07/23/17 at 18:59; Status DC Potassium Chloride (KCl Oral Soln) 40 meq 1X STAT PO Last administered on at 20:06; Start 07/23/17 at 19:45; Stop 07/23/17 at 19:48; Status DC Cephalexin HCl (Keflex) 500 mg 1X ONCE PO Last administered on 07/23/17at 20:10 ; Start 07/23/17 at 20:15; Stop 07/23/17 at 20:16; Status DC Cephalexin HCl (Keflex) 500 mg TID PO Last administered on 07/25/17at 19:45; Start 07/24/17 at 09:00; Stop 07/26/17 at 18:23; Status DC Aripiprazole (Abilify) 5 mg DAILY PO Last administered on 07/26/17at 08:07; Start 07/24/17 at 09:00; Stop 07/26/17 at 19:19; Status DC Benztropine Mesylate (Cogentin) 0.5 mg BID PO Last administered on 07/25/17at 19 :45; Start 07/23/17 at 21:00; Stop 07/25/17 at 21:10; Status DC Clonazepam (KlonoPIN) 0.5 mg BID PO Last administered on 07/28/17at 08:51; Start 07/23/17 at 21:00; Stop 07/28/17 at 18:19; Status DC Trazodone HCl (Desyrel) 150 mg QHS PO Last administered on 08/04/17at 20:29; Start 07/23/17 at 21:00 Hydroxyzine HCl (Atarax) 50 mg PRN Q6HRS PRN PO ANXIETY/AGITATION Last administered on 08/03/17at 11:54; Start 07/23/17 at 21:00 Acetaminophen/ Codeine Phosphate (Tylenol #3) 1 tab QID PO Last administered on 07/31/17at 13:09; Start 07/23/17 at 21:00; Stop 07/31/17 at 18:23; Status DC Acetazolamide (Diamox) 250 mg BID PO ; Start 07/23/17 at 21:00; Stop 07/23/17 at 21:23; Status DC Famotidine (Pepcid) 20 mg BID PO Last administered on 08/05/17at 08:11; Start at 21:00 Furosemide (Lasix) 40 mg DAILY PO Last administered on 07/29/17at 09:07; Start 07/24/17 at 09:00; Stop 07/29/17 at 18:49; Status DC Gabapentin (Neurontin) 300 mg TID PO Last administered on 08/05/17at 12:36; Start 07/23/17 at 21:00 Albuterol/ Ipratropium (Duoneb) 3 ml PRN TID PRN NEB SHORTNESS OF BREATH; Start 07/23/17 at 21:00 Levetiracetam (Keppra) 250 mg BID PO Last administered on 08/05/17at 08:11; Start 07/23/17 at 21:00 Levothyroxine Sodium (Synthroid) 75 mcg DAILY07 PO Last administered on 05:51; Start 07/24/17 at 07:00 Nystatin (Mycostatin) 1 nery PRN BID PRN TP RASH Last administered on 08/04/17at 07:35; Start 07/23/17 at 21:00 Polyethylene Glycol (miraLAX) 17 gm PRN DAILY PRN PO CONSTIPATION Last administered on 07/24/17at 12:44; Start 07/24/17 at 09:00 Sennosides (Senna) 8.6 mg PRN DAILY PRN PO CONSTIPATION Last administered on 12:44; Start 07/23/17 at 21:00 Amylase/Lipase/ Protease (Zenpep 10,000) 1 cap TIDWMEALS PO Last administered on 08/05/17at 16:21; Start 07/24/17 at 08:00 Al Hydroxide/Mg Hydroxide (Mylanta Plus Xs) 30 ml PRN Q4HRS PRN PO DYSPEPSIA; Start 07/23/17 at 21:15 Sodium Chloride (Jasmeet-5) 1 drop QID OU Last administered on 08/05/17 16:22; Start 07/23/17 at 21:00 Acetazolamide (Diamox) 250 mg BID PO Last administered on 07/29/17 09:11; Start 07/24/17 at 09:00; Stop 07/29/17 at 18:49; Status DC Lactobacillus Rhamnosus (Culturelle) 1 cap BID PO Last administered on at 08:11; Start 07/24/17 at 21:00 Benztropine Mesylate (Cogentin) 0.5 mg DAILY PO Last administered on 08/04/17 08:26; Start 07/26/17 at 09:00; Stop 08/04/17 at 18:47; Status DC Divalproex Sodium (Depakote Er) 500 mg QHS PO Last administered on 07/28/17at 19 :27; Start 07/25/17 at 21:30; Stop 07/29/17 at 19:19; Status DC Risperidone (RisperDAL) 0.5 mg HS PO Last administered on 08/03/17at 19:05; Start 07/26/17 at 21:00; Stop 08/04/17 at 18:47; Status DC Clonazepam (KlonoPIN) 0.25 mg BID PO Last administered on 08/01/17at 07:45; Start 07/28/17 at 21:00; Stop 08/01/17 at 20:59; Status DC Clonazepam (KlonoPIN) 0.25 mg DAILY PO Last administered on 08/03/17at 08:40; Start 08/01/17 at 09:00; Stop 08/04/17 at 08:59; Status DC Divalproex Sodium (Depakote Er) 1,000 mg QHS PO Last administered on 08/04/17at 20:29; Start 07/29/17 at 21:00 Acetaminophen/ Codeine Phosphate (Tylenol #3) 1 tab PRN QID PRN PO PAIN Last administered on 08/05/17at 05:51; Start 07/31/17 at 18:30 Mirtazapine (Remeron) 7.5 mg QHS PO Last administered on 08/04/17at 20:30; Start 08/03/17 at 21:00 Nystatin (Nystop) 1 nery BID TP Last administered on 08/05/17at 09:01; Start at 21:00 Risperidone (RisperDAL) 2.75 mg HS PO ; Start 08/04/17 at 21:00; Stop 08/04/17 at 21:00; Status DC Risperidone (RisperDAL) 0.75 mg HS PO Last administered on 08/04/17at 20:30; Start 08/04/17 at 21:00 Active Scripts Active Reported Nystatin 15 Gm Oint...g. 1 Nery TP PRN BID PRN Keppra (Levetiracetam) 250 Mg Tablet 250 Mg PO BID Neurontin (Gabapentin) 300 Mg Capsule 300 Mg PO TID Jasmeet-128 (Sodium Chloride) 15 Ml Drops 1 Drop OU QID 30 Days Maalox Advanced Suspension (Mag Hydrox/Aluminum Hyd/Simeth) 355 Ml Oral.susp 30 Ml PO PRN Q4HRS PRN Pepcid (Famotidine) 20 Mg Tablet 20 Mg PO BID 30 Days Senokot (Sennosides) 8.6 Mg Tablet 8.6 Mg PO PRN DAILY PRN Miralax (Polyethylene Glycol 3350) 119 Gm Powder 17 Gm PO PRN DAILY PRN Duoneb 0.5-3(2.5) Mg/3 Ml (Albuterol/Ipratropium) 3 Ml Ampul.neb 3 Ml NEB PRN TID PRN Hydroxyzine Pamoate 50 Mg Capsule 50 Mg PO PRN Q6HRS PRN Trazodone Hcl 150 Mg Tablet 150 Mg PO QHS Paroxetine Hcl 30 Mg Tablet 30 Mg PO DAILY Levothyroxine Sodium 75 Mcg Tablet 75 Mcg PO DAILY07 Furosemide 40 Mg Tablet 40 Mg PO DAILY Creon Dr 12,000 Units Capsule (Lipase/Protease/Amylase) 1 Each Capsule. 1 Cap PO TIDWMEALS Clonazepam 0.5 Mg Tablet 0.5 Mg PO BID Benztropine Mesylate 0.5 Mg Tablet 0.5 Mg PO BID Abilify (Aripiprazole) 5 Mg Tablet 5 Mg PO DAILY Acetazolamide 250 Mg Tablet 250 Mg PO BID Tylenol With Codeine #3 Tablet (Acetaminophen With Codeine) 1 Each Tablet 1 Tab PO QID I have reviewed the current psychotropics carefully including drug interactions. Risk benefit ratio favors no change other than as noted in my dictated progress note. Diagnosis: Problems: (1) Change in mental status (2) Anxiety disorder (3) Bipolar affective, mixed, sev w/ psych (4) Impulse control disorder (5) Schizoaffective disorder, chronic condition with acute exacerbation ULISSES EPPS MD Aug 05, 2017 19:43
[2017-08-05] MEDS: MIRTAZAPINE 7.5 MG TABLET. PO SCH (20:03)
[2017-08-05] MEDS: traZODone 150 MG TABLET. PO SCH (20:03)
[2017-08-05] MEDS: risperiDONE 0.5 MG TABLET. PO SCH (20:03)
[2017-08-05] MEDS: DIVALPROEX ER 500 MG TAB.ER.24H PO SCH (20:04)
[2017-08-05] MEDS: hydrOXYzine HCL 25 MG TABLET PO PRN (21:20)
--- NOTE | 2017-08-06 00:24 | PN ---
DATE: 08/04/2017 This late entry, 08/04/2017, covers elements not covered in my initial note of 08/04/2017. SUBJECTIVE: I met with the patient the evening of 08/04/2017. The patient slept 6-3/4 hours previous evening. Has been wandering up and down the hallway. Compliant with medications, irritable at times, has some excoriation under her breast and right conjunctivitis. The latter is being treated per Dr. Nolan. REVIEW OF SYSTEMS: No CV, , pulmonary, eye, ENT system symptoms on review. Reliability poor. MENTAL STATUS EXAM: Oriented to herself. Insight, judgment, recent and remote memory, attention, concentration, fund of knowledge poor, consistent with her diagnosis. The patient remains somewhat psychotic, but the level of confusion is significant and is difficult to correlate this with what I was told that she was reasonably cognitively intact a few weeks ago. Social service staffs are not able to fully corroborate this higher level of functioning in the recent past and in fact she may have had a compromised level of functioning for quite some time. LABORATORY DATA: Reviewed. IMPRESSION: Schizoaffective disorder, bipolar type, mixed with psychotic features; cognitive disorder, unspecified. PLAN: Increase Risperdal from 0.5 mg at bedtime starting on 08/05/2017. This will increase to 0.75 mg p.o. at bedtime. Stop the Cogentin. No extrapyramidal side effects noted. Klonopin is being tapered. She remains on Keppra, Remeron, and Depakote with the therapeutic level at 77 along with Neurontin and hydroxyzine p.r.n. ULISSES EPPS MD DR: KEMAR/rashaun JOB#: [id number] / [id number]
--- NOTE | 2017-08-06 03:00 | NUR ---
Nursing Note: This evening, Pt in the day room, wandering around. Pt ambulated to another pt whom was speaking with family on the phone, this patient then took the phone away from peer and began talking on the phone, staff intervened, Pt became very aggressive attempting to hit staff when staff attempted to explain that someone was using the phone when she took it. Pt placed in locked servin r/t increased agitation/aggression. Staff entered the Nurses station and pt jumped up from chair, ran to the Nurses station door attempting to reach the Male OUTBOARD MOTORS EXPERIMENTAL MECHANIC that had just entered. Nurse intervened, Pt began yelling "that's him, that's him" Nurse attempted to redirect, Pt unable to be redirected, Pt is Delusional believing she is at someone's house. PRN Atarax administered per PRN order. Pt assisted to bed at 2130, at 2200 Pt up in the hallway grabbing Male peer, staff intervened, Pt adamant that this peer is her father, nurse redirected and assisted pt back to bed, at 2300 Pt again in the servin grabbing the same male peer believing this to be her father, Nurse again intervened and assisted pt back to bed. At 0300 Pt ambulating down the servin Naked, entered Male peers room, staff redirected pt back to her room, assisted her to dress then back to bed
--- NOTE | 2017-08-06 04:17 | NUR ---
Behavior Intervention Response and Plan: BIRP Note: Behavior: Assumed Care of patient, patient located in Hallway at shift change. Patient exhibited the following behavior Irritable, Agitated, Aggressive. Brief assessment on rounds of vital signs, medication needs, lab studies, and pain. Treatment plan problems Altered thought process and Fall Risk. Intervention: Patient assessed and the following interventions initiated safety checks 15 Minute Checks Cognitive Assessment , Head to toe Assessment , Medications. Response: After interactions and interventions patient responded in the following manner, Irritable, Delusional, Compliant. Continue to assess behaviors and condition will continue to monitor throughout the shift as needed. Patient educated on ADL's, and hand hygiene. Plan: Continue to monitor Master Treatment Plan for patient's progress toward short term goals of Decreased Anxiety, Improved Mood, long-term goals to return to previous living setting vs placement. Continue to assess patient for changes in above assessment. Monitor for medication needs, pain, and safety concerns. Hourly rounding performed to ensure safe environment.
[2017-08-06 06:09] VITALS: BP 120/72
[2017-08-06] MEDS: LEVOTHYROXINE 75 MCG TABLET PO SCH (06:13)
[2017-08-06] MEDS: GABAPENTIN 300 MG CAPSULE. PO SCH ×3 (08:52→19:45)
[2017-08-06] MEDS: levETIRAcetam 250 MG TABLET PO SCH ×2 (08:52→19:45)
[2017-08-06] MEDS: LACTOBACILLUS RHAMNOSUS GG 1 CAPSULE. PO SCH ×2 (08:52→19:44)
[2017-08-06] MEDS: SODIUM CHLORIDE 5% OPHTH SOLUTION 15ML BOTTLE. OU SCH ×5 (08:53→19:45)
[2017-08-06] MEDS: FAMOTIDINE 20 MG TABLET PO SCH ×2 (08:53→19:45)
[2017-08-06] MEDS: LIPASE/PROTEAS/AMYLAS 10/34/55 CAPSULE.DR. PO SCH ×3 (08:53→17:11)
[2017-08-06] MEDS: NYSTATIN TOPICAL POWDER 15GM BOTTLE. TP SCH ×2 (08:53→19:45)
--- NOTE | 2017-08-06 11:55 | NUR ---
Behavior Intervention Response and Plan: BIRP Note: Behavior: Assumed Care of patient, patient located in Hallway at shift change. Patient exhibited the following behavior Wandering, Restless, Disorganized. Brief assessment on rounds of vital signs, medication needs, lab studies, and pain. Treatment plan problems 1 and 2. Intervention: Patient assessed and the following interventions initiated safety checks 15 Minute Checks Cognitive Assessment , Head to toe Assessment , Medications. Response: After interactions and interventions patient responded in the following manner, Restless , Compliant ,Cooperative. Continue to assess behaviors and condition will continue to monitor throughout the shift as needed. Patient educated on ADL's, and hand hygiene. Plan: Continue to monitor Master Treatment Plan for patient's progress toward short term goals of Decreased Agitation, Decreased Aggression, termination clerk goals to return to previous living setting vs placement. Continue to assess patient for changes in above assessment. Monitor for medication needs, pain, and safety concerns. Hourly rounding performed to ensure safe environment.
--- NOTE | 2017-08-06 12:18 | NUR ---
patient has soft heel protector on Left ankle for protection/support. Per Dr. Nolan patient needs to keep protector on for ligament damage.
[2017-08-06] MEDS: FUROSEMIDE 20 MG TABLET PO SCH (15:17)
[2017-08-06 15:56] VITALS: BP 116/60
--- NOTE | 2017-08-06 19:26 | PDOC ---
Exam Note: Michael Note: Please also refer to the separate dictated note~for this date of service dictated separately.~Patient seen individually. Discussed the patient with Nursing staff reviewed the chart.~Reviewed interim history and current functioning. Reviewed vital signs,~Labs/ Radiology~and current medications noted below. Continue current treatment with the changes noted in the dictated addendum note Assessment: Vital Signs: Vital Signs Date Time Temp Pulse Resp B/P (MAP) Pulse Ox O2 Delivery O2 Flow Rate FiO2 08/06/17 15:56 98.5 87 16 116/60 (78) 99 08/05/17 16:19 Room Air I&O Intake and Output 08/06/17 07:00 Intake Total 600 ml Balance 600 ml Intake Oral 600 ml Current Medications: Meds: Current Medications Sodium Chloride 1,000 ml @ 1,000 mls/hr Q1H IV Last administered on 07/23/17at 18:00; Start 07/23/17 at 18:00; Stop 07/23/17 at 18:59; Status DC Potassium Chloride (KCl Oral Soln) 40 meq 1X STAT PO Last administered on at 20:06; Start 07/23/17 at 19:45; Stop 07/23/17 at 19:48; Status DC Cephalexin HCl (Keflex) 500 mg 1X ONCE PO Last administered on 07/23/17at 20:10 ; Start 07/23/17 at 20:15; Stop 07/23/17 at 20:16; Status DC Cephalexin HCl (Keflex) 500 mg TID PO Last administered on 07/25/17at 19:45; Start 07/24/17 at 09:00; Stop 07/26/17 at 18:23; Status DC Aripiprazole (Abilify) 5 mg DAILY PO Last administered on 07/26/17at 08:07; Start 07/24/17 at 09:00; Stop 07/26/17 at 19:19; Status DC Benztropine Mesylate (Cogentin) 0.5 mg BID PO Last administered on 07/25/17at 19 :45; Start 07/23/17 at 21:00; Stop 07/25/17 at 21:10; Status DC Clonazepam (KlonoPIN) 0.5 mg BID PO Last administered on 07/28/17at 08:51; Start 07/23/17 at 21:00; Stop 07/28/17 at 18:19; Status DC Trazodone HCl (Desyrel) 150 mg QHS PO Last administered on 08/05/17at 20:03; Start 07/23/17 at 21:00 Hydroxyzine HCl (Atarax) 50 mg PRN Q6HRS PRN PO ANXIETY/AGITATION Last administered on 08/05/17at 21:20; Start 07/23/17 at 21:00 Acetaminophen/ Codeine Phosphate (Tylenol #3) 1 tab QID PO Last administered on 07/31/17at 13:09; Start 07/23/17 at 21:00; Stop 07/31/17 at 18:23; Status DC Acetazolamide (Diamox) 250 mg BID PO ; Start 07/23/17 at 21:00; Stop 07/23/17 at 21:23; Status DC Famotidine (Pepcid) 20 mg BID PO Last administered on 08/06/17 08:53; Start at 21:00 Furosemide (Lasix) 40 mg DAILY PO Last administered on 07/29/17at 09:07; Start 07/24/17 at 09:00; Stop 07/29/17 at 18:49; Status DC Gabapentin (Neurontin) 300 mg TID PO Last administered on 08/06/17 13:25; Start 07/23/17 at 21:00 Albuterol/ Ipratropium (Duoneb) 3 ml PRN TID PRN NEB SHORTNESS OF BREATH; Start 07/23/17 at 21:00 Levetiracetam (Keppra) 250 mg BID PO Last administered on 08/06/17 08:52; Start 07/23/17 at 21:00 Levothyroxine Sodium (Synthroid) 75 mcg DAILY07 PO Last administered on 06:13; Start 07/24/17 at 07:00 Nystatin (Mycostatin) 1 nery PRN BID PRN TP RASH Last administered on 08/04/17at 07:35; Start 07/23/17 at 21:00 Polyethylene Glycol (miraLAX) 17 gm PRN DAILY PRN PO CONSTIPATION Last administered on 07/24/17at 12:44; Start 07/24/17 at 09:00 Sennosides (Senna) 8.6 mg PRN DAILY PRN PO CONSTIPATION Last administered on 12:44; Start 07/23/17 at 21:00 Amylase/Lipase/ Protease (Zenpep 10,000) 1 cap TIDWMEALS PO Last administered on 08/06/17 17:11; Start 07/24/17 at 08:00 Al Hydroxide/Mg Hydroxide (Mylanta Plus Xs) 30 ml PRN Q4HRS PRN PO DYSPEPSIA; Start 07/23/17 at 21:15 Sodium Chloride (Jasmeet-5) 1 drop QID OU Last administered on 08/06/17 13:24; Start 07/23/17 at 21:00 Acetazolamide (Diamox) 250 mg BID PO Last administered on 07/29/17 09:11; Start 07/24/17 at 09:00; Stop 07/29/17 at 18:49; Status DC Lactobacillus Rhamnosus (Culturelle) 1 cap BID PO Last administered on 08:52; Start 07/24/17 at 21:00 Benztropine Mesylate (Cogentin) 0.5 mg DAILY PO Last administered on 08/04/17 08:26; Start 07/26/17 at 09:00; Stop 08/04/17 at 18:47; Status DC Divalproex Sodium (Depakote Er) 500 mg QHS PO Last administered on 07/28/17 19 :27; Start 07/25/17 at 21:30; Stop 07/29/17 at 19:19; Status DC Risperidone (RisperDAL) 0.5 mg HS PO Last administered on 08/03/17 19:05; Start 07/26/17 at 21:00; Stop 08/04/17 at 18:47; Status DC Clonazepam (KlonoPIN) 0.25 mg BID PO Last administered on 08/01/17 07:45; Start 07/28/17 at 21:00; Stop 08/01/17 at 20:59; Status DC Clonazepam (KlonoPIN) 0.25 mg DAILY PO Last administered on 08/03/17at 08:40; Start 08/01/17 at 09:00; Stop 08/04/17 at 08:59; Status DC Divalproex Sodium (Depakote Er) 1,000 mg QHS PO Last administered on 08/05/17at 20:04; Start 07/29/17 at 21:00 Acetaminophen/ Codeine Phosphate (Tylenol #3) 1 tab PRN QID PRN PO PAIN Last administered on 08/05/17at 05:51; Start 07/31/17 at 18:30 Mirtazapine (Remeron) 7.5 mg QHS PO Last administered on 08/05/17at 20:03; Start 08/03/17 at 21:00 Nystatin (Nystop) 1 nery BID TP Last administered on 08/06/17at 08:53; Start at 21:00 Risperidone (RisperDAL) 2.75 mg HS PO ; Start 08/04/17 at 21:00; Stop 08/04/17 at 21:00; Status DC Risperidone (RisperDAL) 0.75 mg HS PO Last administered on 08/05/17at 20:03; Start 08/04/17 at 21:00 Furosemide (Lasix) 10 mg DAILY PO Last administered on 08/06/17at 15:17; Start 08/06/17 at 14:00 Active Scripts Active Reported Nystatin 15 Gm Oint...g. 1 Nery TP PRN BID PRN Keppra (Levetiracetam) 250 Mg Tablet 250 Mg PO BID Neurontin (Gabapentin) 300 Mg Capsule 300 Mg PO TID Jasmeet-128 (Sodium Chloride) 15 Ml Drops 1 Drop OU QID 30 Days Maalox Advanced Suspension (Mag Hydrox/Aluminum Hyd/Simeth) 355 Ml Oral.susp 30 Ml PO PRN Q4HRS PRN Pepcid (Famotidine) 20 Mg Tablet 20 Mg PO BID 30 Days Senokot (Sennosides) 8.6 Mg Tablet 8.6 Mg PO PRN DAILY PRN Miralax (Polyethylene Glycol 3350) 119 Gm Powder 17 Gm PO PRN DAILY PRN Duoneb 0.5-3(2.5) Mg/3 Ml (Albuterol/Ipratropium) 3 Ml Ampul.neb 3 Ml NEB PRN TID PRN Hydroxyzine Pamoate 50 Mg Capsule 50 Mg PO PRN Q6HRS PRN Trazodone Hcl 150 Mg Tablet 150 Mg PO QHS Paroxetine Hcl 30 Mg Tablet 30 Mg PO DAILY Levothyroxine Sodium 75 Mcg Tablet 75 Mcg PO DAILY07 Furosemide 40 Mg Tablet 40 Mg PO DAILY Hannah [place] 12,000 Units Capsule (Lipase/Protease/Amylase) 1 Each Capsule. 1 Cap PO TIDWMEALS Clonazepam 0.5 Mg Tablet 0.5 Mg PO BID Benztropine Mesylate 0.5 Mg Tablet 0.5 Mg PO BID Abilify (Aripiprazole) 5 Mg Tablet 5 Mg PO DAILY Acetazolamide 250 Mg Tablet 250 Mg PO BID Tylenol With Codeine #3 Tablet (Acetaminophen With Codeine) 1 Each Tablet 1 Tab PO QID I have reviewed the current psychotropics carefully including drug interactions. Risk benefit ratio favors no change other than as noted in my dictated progress note. Diagnosis: Problems: (1) Change in mental status (2) Anxiety disorder (3) Bipolar affective, mixed, sev w/ psych (4) Impulse control disorder (5) Schizoaffective disorder, chronic condition with acute exacerbation ULISSES EPPS MD Aug 06, 2017 19:26
[2017-08-06] MEDS: risperiDONE 0.5 MG TABLET. PO SCH (19:44)
[2017-08-06] MEDS: DIVALPROEX ER 500 MG TAB.ER.24H PO SCH (19:44)
[2017-08-06] MEDS: traZODone 150 MG TABLET. PO SCH (19:44)
[2017-08-06] MEDS: MIRTAZAPINE 7.5 MG TABLET. PO SCH (19:45)
--- NOTE | 2017-08-06 22:08 | PN ---
DATE: 08/05/2017 This late entry, 08/05/2017, covers elements not covered in my initial note 08/05/2017. Met with the patient in the evening of 08/05/2017. The patient remains confused, has lost her dentures, somewhat paranoid, believes there was FBI in the day room, got into the nursing station, difficult to redirect, sleeping 6-7 hours, appetite is 50%, wandering with her clothes off, tried to punch nursing staff, has a right conjunctivitis. No CV, , pulmonary, eye system symptoms on review other than the right conjunctivitis. MENTAL STATUS EXAM: Oriented to herself. Insight, judgment, recent and remote memory, attention, concentration, fund of knowledge poor, consistent with her diagnosis mentioned in my initial note. IMPRESSION: Schizoaffective disorder, bipolar type, mixed with psychotic features; major neurocognitive disorder, Alzheimer, vascular with delusion, depression. PLAN: Continue psychotropics mentioned in my initial note. Adjust further as clinically indicated. MAN Garret EPPS MD DR: [email or web address]/rashaun JOB#: [id number] / [id number]
--- NOTE | 2017-08-07 01:29 | NUR ---
Behavior Intervention Response and Plan: BIRP Note: Behavior: Assumed Care of patient, patient located in Hallway at shift change. Patient exhibited the following behavior Calm, Wandering, Compliant. Brief assessment on rounds of vital signs, medication needs, lab studies, and pain. Treatment plan problems Altered thought process and Fall Risk. Intervention: Patient assessed and the following interventions initiated safety checks 15 Minute Checks Cognitive Assessment , Head to toe Assessment , Medications. Response: After interactions and interventions patient responded in the following manner, Calm , Compliant ,Cooperative. Continue to assess behaviors and condition will continue to monitor throughout the shift as needed. Patient educated on ADL's, and hand hygiene. Plan: Continue to monitor Master Treatment Plan for patient's progress toward short term goals of Decreased Anxiety, Improved Mood, senior living goals to return to previous living setting vs placement. Continue to assess patient for changes in above assessment. Monitor for medication needs, pain, and safety concerns. Hourly rounding performed to ensure safe environment.
[2017-08-07] MEDS: LEVOTHYROXINE 75 MCG TABLET PO SCH (05:56)
[2017-08-07 06:33] VITALS: BP 118/62
[2017-08-07] MEDS: LACTOBACILLUS RHAMNOSUS GG 1 CAPSULE. PO SCH ×2 (08:28→20:07)
[2017-08-07] MEDS: FUROSEMIDE 20 MG TABLET PO SCH (08:28)
[2017-08-07] MEDS: GABAPENTIN 300 MG CAPSULE. PO SCH ×3 (08:28→20:08)
[2017-08-07] MEDS: FAMOTIDINE 20 MG TABLET PO SCH ×2 (08:28→20:08)
[2017-08-07] MEDS: levETIRAcetam 250 MG TABLET PO SCH ×2 (08:28→20:08)
[2017-08-07] MEDS: LIPASE/PROTEAS/AMYLAS 10/34/55 CAPSULE.DR. PO SCH ×3 (08:28→17:20)
[2017-08-07] MEDS: SODIUM CHLORIDE 5% OPHTH SOLUTION 15ML BOTTLE. OU SCH ×4 (08:29→20:09)
[2017-08-07] MEDS: NYSTATIN TOPICAL POWDER 15GM BOTTLE. TP SCH ×2 (08:29→20:09)
[2017-08-07 09:10] LABS: BASO # 0.1 x10^3/uL (0.0-0.2); BASO % 1 % (0-3); EOS # 0.1 x10^3/uL (0.0-0.7); EOS % 2 % (0-3); HEMATOCRIT 37.9 % (36.0-47.0); HEMOGLOBIN 12.1 g/dL (12.0-15.5); LYMPH # 1.1 x10^3/uL (1.0-4.8); LYMPH % 14 % (24-48); MEAN CORPUSCULAR HEMOGLOBIN 24 pg (25-35); MEAN CORPUSCULAR HGB CONC 32 g/dL (31-37); MEAN CORPUSCULAR VOLUME 76 fL (79-100); MONO # 0.6 x10^3/uL (0.0-1.1); MONO % 8 % (0-9); NEUT # 6.2 x10^3uL (1.8-7.7); NEUT % 76 % (31-73); PLATELET COUNT 261 x10^3/uL (140-400); RED BLOOD COUNT 4.98 x10^6/uL (3.50-5.40); RED CELL DISTRIBUTION WIDTH 16.2 % (11.5-14.5); WHITE BLOOD COUNT 8.1 x10^3/uL (4.0-11.0)
[2017-08-07 09:24] LABS: ALBUMIN 2.5 g/dL (3.4-5.0); ALBUMIN/GLOBULIN RATIO 0.5 (1.0-1.7); CALCIUM 8.9 mg/dL (8.5-10.1); CREATININE 0.7 mg/dL (0.6-1.0); GFR 86.9; POTASSIUM 3.6 mmol/L (3.5-5.1); TOTAL BILIRUBIN 0.3 mg/dL (0.2-1.0); TOTAL PROTEIN 7.2 g/dL (6.4-8.2)
--- NOTE | 2017-08-07 13:21 | NUR ---
Behavior Intervention Response and Plan: BIRP Note: Behavior: Assumed Care of patient, patient located in Hallway at shift change. Patient exhibited the following behavior Calm, Wandering, Compliant, and confused. Brief assessment on rounds of vital signs, medication needs, lab studies, and pain. Treatment plan problems Altered thought process and Fall Risk. Intervention: Patient assessed and the following interventions initiated safety checks 15 Minute Checks Cognitive Assessment , Head to toe Assessment , Medications. Response: After interactions and interventions patient responded in the following manner, Calm, confused, Compliant, and Cooperative. Continue to assess behaviors and condition will continue to monitor throughout the shift as needed. Patient educated on ADL's, and hand hygiene. Plan: Continue to monitor Master Treatment Plan for patient's progress toward short term goals of Decreased Anxiety, Improved Mood, senior living goals to return to previous living setting vs placement. Continue to assess patient for changes in above assessment. Monitor for medication needs, pain, and safety concerns. Hourly rounding performed to ensure safe environment.
[2017-08-07 16:04] VITALS: BP 103/55
[2017-08-07] MEDS: DIVALPROEX ER 500 MG TAB.ER.24H PO SCH (20:07)
[2017-08-07] MEDS: risperiDONE 0.5 MG TABLET. PO SCH (20:07)
[2017-08-07] MEDS: MIRTAZAPINE 7.5 MG TABLET. PO SCH (20:08)
[2017-08-07] MEDS: traZODone 150 MG TABLET. PO SCH (20:08)
--- NOTE | 2017-08-07 21:52 | PDOC ---
Exam Note: Michael Note: Please also refer to the separate dictated note~for this date of service dictated separately.~Patient seen individually. Discussed the patient with Nursing staff reviewed the chart.~Reviewed interim history and current functioning. Reviewed vital signs,~Labs/ Radiology~and current medications noted below. Continue current treatment with the changes noted in the dictated addendum note Assessment: Vital Signs: Vital Signs Date Time Temp Pulse Resp B/P (MAP) Pulse Ox O2 Delivery O2 Flow Rate FiO2 08/07/17 16:04 97.9 87 16 103/55 (71) 94 08/05/17 16:19 Room Air I&O Intake and Output 08/07/17 07:00 Intake Total 940 ml Balance 940 ml Intake Oral 940 ml Labs: Laboratory Tests Test 08/07/17 08:53 White Blood Count 8.1 x10^3/uL (4.0-11.0) Red Blood Count 4.98 x10^6/uL (3.50-5.40) Hemoglobin 12.1 g/dL (12.0-15.5) Hematocrit 37.9 % (36.0-47.0) Mean Corpuscular Volume 76 fL (79-100) L Mean Corpuscular Hemoglobin 24 pg (25-35) L Mean Corpuscular Hemoglobin Concent 32 g/dL (31-37) Red Cell Distribution Width 16.2 % (11.5-14.5) H Platelet Count 261 x10^3/uL (140-400) Neutrophils (%) (Auto) 76 % (31-73) H Lymphocytes (%) (Auto) 14 % (24-48) L Monocytes (%) (Auto) 8 % (0-9) Eosinophils (%) (Auto) 2 % (0-3) Basophils (%) (Auto) 1 % (0-3) Neutrophils # (Auto) 6.2 x10^3uL (1.8-7.7) Lymphocytes # (Auto) 1.1 x10^3/uL (1.0-4.8) Monocytes # (Auto) 0.6 x10^3/uL (0.0-1.1) Eosinophils # (Auto) 0.1 x10^3/uL (0.0-0.7) Basophils # (Auto) 0.1 x10^3/uL (0.0-0.2) Sodium Level 142 mmol/L (136-145) Potassium Level 3.6 mmol/L (3.5-5.1) Chloride Level 105 mmol/L (98-107) Carbon Dioxide Level 30 mmol/L (21-32) Anion Gap 7 (6-14) Blood Urea Nitrogen 8 mg/dL (7-20) Creatinine 0.7 mg/dL (0.6-1.0) Estimated GFR (Cockcroft-Gault) 86.9 BUN/Creatinine Ratio 11 (6-20) Glucose Level 120 mg/dL (70-99) H Calcium Level 8.9 mg/dL (8.5-10.1) Total Bilirubin 0.3 mg/dL (0.2-1.0) Aspartate Amino Transferase (AST) 18 U/L (15-37) Alanine Aminotransferase (ALT) 14 U/L (14-59) Alkaline Phosphatase 137 U/L (46-116) H Total Protein 7.2 g/dL (6.4-8.2) Albumin 2.5 g/dL (3.4-5.0) L Albumin/Globulin Ratio 0.5 (1.0-1.7) L Current Medications: Meds: Current Medications Sodium Chloride 1,000 ml @ 1,000 mls/hr Q1H IV Last administered on 07/23/17at 18:00; Start 07/23/17 at 18:00; Stop 07/23/17 at 18:59; Status DC Potassium Chloride (KCl Oral Soln) 40 meq 1X STAT PO Last administered on 20:06; Start 07/23/17 at 19:45; Stop 07/23/17 at 19:48; Status DC Cephalexin HCl (Keflex) 500 mg 1X ONCE PO Last administered on 07/23/17at 20:10 ; Start 07/23/17 at 20:15; Stop 07/23/17 at 20:16; Status DC Cephalexin HCl (Keflex) 500 mg TID PO Last administered on 07/25/17at 19:45; Start 07/24/17 at 09:00; Stop 07/26/17 at 18:23; Status DC Aripiprazole (Abilify) 5 mg DAILY PO Last administered on 07/26/17at 08:07; Start 07/24/17 at 09:00; Stop 07/26/17 at 19:19; Status DC Benztropine Mesylate (Cogentin) 0.5 mg BID PO Last administered on 07/25/17at 19 :45; Start 07/23/17 at 21:00; Stop 07/25/17 at 21:10; Status DC Clonazepam (KlonoPIN) 0.5 mg BID PO Last administered on 07/28/17at 08:51; Start 07/23/17 at 21:00; Stop 07/28/17 at 18:19; Status DC Trazodone HCl (Desyrel) 150 mg QHS PO Last administered on 08/07/17 20:08; Start 07/23/17 at 21:00 Hydroxyzine HCl (Atarax) 50 mg PRN Q6HRS PRN PO ANXIETY/AGITATION Last administered on 08/05/17at 21:20; Start 07/23/17 at 21:00 Acetaminophen/ Codeine Phosphate (Tylenol #3) 1 tab QID PO Last administered on 07/31/17at 13:09; Start 07/23/17 at 21:00; Stop 07/31/17 at 18:23; Status DC Acetazolamide (Diamox) 250 mg BID PO ; Start 07/23/17 at 21:00; Stop 07/23/17 at 21:23; Status DC Famotidine (Pepcid) 20 mg BID PO Last administered on 08/07/17at 20:08; Start at 21:00 Furosemide (Lasix) 40 mg DAILY PO Last administered on 07/29/17 09:07; Start 07/24/17 at 09:00; Stop 07/29/17 at 18:49; Status DC Gabapentin (Neurontin) 300 mg TID PO Last administered on 08/07/17 20:08; Start 07/23/17 at 21:00 Albuterol/ Ipratropium (Duoneb) 3 ml PRN TID PRN NEB SHORTNESS OF BREATH; Start 07/23/17 at 21:00 Levetiracetam (Keppra) 250 mg BID PO Last administered on 08/07/17 20:08; Start 07/23/17 at 21:00 Levothyroxine Sodium (Synthroid) 75 mcg DAILY07 PO Last administered on 05:56; Start 07/24/17 at 07:00 Nystatin (Mycostatin) 1 nery PRN BID PRN TP RASH Last administered on 08/04/17 07:35; Start 07/23/17 at 21:00 Polyethylene Glycol (miraLAX) 17 gm PRN DAILY PRN PO CONSTIPATION Last administered on 07/24/17 12:44; Start 07/24/17 at 09:00 Sennosides (Senna) 8.6 mg PRN DAILY PRN PO CONSTIPATION Last administered on 12:44; Start 07/23/17 at 21:00 Amylase/Lipase/ Protease (Zenpep 10,000) 1 cap TIDWMEALS PO Last administered on 08/07/17 17:20; Start 07/24/17 at 08:00 Al Hydroxide/Mg Hydroxide (Mylanta Plus Xs) 30 ml PRN Q4HRS PRN PO DYSPEPSIA; Start 07/23/17 at 21:15 Sodium Chloride (Jasmeet-5) 1 drop QID OU Last administered on 08/07/17 13:06; Start 07/23/17 at 21:00 Acetazolamide (Diamox) 250 mg BID PO Last administered on 07/29/17 09:11; Start 07/24/17 at 09:00; Stop 07/29/17 at 18:49; Status DC Lactobacillus Rhamnosus (Culturelle) 1 cap BID PO Last administered on 20:07; Start 07/24/17 at 21:00 Benztropine Mesylate (Cogentin) 0.5 mg DAILY PO Last administered on 08/04/17at 08:26; Start 07/26/17 at 09:00; Stop 08/04/17 at 18:47; Status DC Divalproex Sodium (Depakote Er) 500 mg QHS PO Last administered on 07/28/17 19 :27; Start 07/25/17 at 21:30; Stop 07/29/17 at 19:19; Status DC Risperidone (RisperDAL) 0.5 mg HS PO Last administered on 08/03/17at 19:05; Start 07/26/17 at 21:00; Stop 08/04/17 at 18:47; Status DC Clonazepam (KlonoPIN) 0.25 mg BID PO Last administered on 08/01/17 07:45; Start 07/28/17 at 21:00; Stop 08/01/17 at 20:59; Status DC Clonazepam (KlonoPIN) 0.25 mg DAILY PO Last administered on 08/03/17at 08:40; Start 08/01/17 at 09:00; Stop 08/04/17 at 08:59; Status DC Divalproex Sodium (Depakote Er) 1,000 mg QHS PO Last administered on 08/07/17at 20:07; Start 07/29/17 at 21:00 Acetaminophen/ Codeine Phosphate (Tylenol #3) 1 tab PRN QID PRN PO PAIN Last administered on 08/05/17 05:51; Start 07/31/17 at 18:30 Mirtazapine (Remeron) 7.5 mg QHS PO Last administered on 08/07/17 20:08; Start 08/03/17 at 21:00 Nystatin (Nystop) 1 nery BID TP Last administered on 08/07/17at 20:09; Start at 21:00 Risperidone (RisperDAL) 2.75 mg HS PO ; Start 08/04/17 at 21:00; Stop 08/04/17 at 21:00; Status DC Risperidone (RisperDAL) 0.75 mg HS PO Last administered on 08/07/17 20:07; Start 08/04/17 at 21:00 Furosemide (Lasix) 10 mg DAILY PO Last administered on 08/07/17 08:28; Start 08/06/17 at 14:00 Active Scripts Active Reported Nystatin 15 Gm Oint...g. 1 Nery TP PRN BID PRN Keppra (Levetiracetam) 250 Mg Tablet 250 Mg PO BID Neurontin (Gabapentin) 300 Mg Capsule 300 Mg PO TID Jasmeet-128 (Sodium Chloride) 15 Ml Drops 1 Drop OU QID 30 Days Maalox Advanced Suspension (Mag Hydrox/Aluminum Hyd/Simeth) 355 Ml Oral.susp 30 Ml PO PRN Q4HRS PRN Pepcid (Famotidine) 20 Mg Tablet 20 Mg PO BID 30 Days Senokot (Sennosides) 8.6 Mg Tablet 8.6 Mg PO PRN DAILY PRN Miralax (Polyethylene Glycol 3350) 119 Gm Powder 17 Gm PO PRN DAILY PRN Duoneb 0.5-3(2.5) Mg/3 Ml (Albuterol/Ipratropium) 3 Ml Ampul.neb 3 Ml NEB PRN TID PRN Hydroxyzine Pamoate 50 Mg Capsule 50 Mg PO PRN Q6HRS PRN Trazodone Hcl 150 Mg Tablet 150 Mg PO QHS Paroxetine Hcl 30 Mg Tablet 30 Mg PO DAILY Levothyroxine Sodium 75 Mcg Tablet 75 Mcg PO DAILY07 Furosemide 40 Mg Tablet 40 Mg PO DAILY Creon Dr 12,000 Units Capsule (Lipase/Protease/Amylase) 1 Each Capsule.dr 1 Cap PO TIDWMEALS Clonazepam 0.5 Mg Tablet 0.5 Mg PO BID Benztropine Mesylate 0.5 Mg Tablet 0.5 Mg PO BID Abilify (Aripiprazole) 5 Mg Tablet 5 Mg PO DAILY Acetazolamide 250 Mg Tablet 250 Mg PO BID Tylenol With Codeine #3 Tablet (Acetaminophen With Codeine) 1 Each Tablet 1 Tab PO QID I have reviewed the current psychotropics carefully including drug interactions. Risk benefit ratio favors no change other than as noted in my dictated progress note. Diagnosis: Problems: (1) Change in mental status (2) Anxiety disorder (3) Bipolar affective, mixed, sev w/ psych (4) Impulse control disorder (5) Schizoaffective disorder, chronic condition with acute exacerbation ULISSES EPPS MD Aug 07, 2017 21:52
--- NOTE | 2017-08-08 00:10 | NUR ---
Behavior Intervention Response and Plan: BIRP Note: Behavior: Assumed Care of patient, patient located in Hallway at shift change. Patient exhibited the following behavior Calm, Wandering, Compliant. Brief assessment on rounds of vital signs, medication needs, lab studies, and pain. Treatment plan problems Altered thought process and Fall Risk. Intervention: Patient assessed and the following interventions initiated safety checks 15 Minute Checks Cognitive Assessment , Head to toe Assessment , Medications. Response: After interactions and interventions patient responded in the following manner, Calm , Compliant ,Cooperative. Continue to assess behaviors and condition will continue to monitor throughout the shift as needed. Patient educated on ADL's, and hand hygiene. Plan: Continue to monitor Master Treatment Plan for patient's progress toward short term goals of Decreased Anxiety, Improved Mood, detention goals to return to previous living setting vs placement. Continue to assess patient for changes in above assessment. Monitor for medication needs, pain, and safety concerns. Hourly rounding performed to ensure safe environment.
[2017-08-08] MEDS: LEVOTHYROXINE 75 MCG TABLET PO SCH (05:53)
[2017-08-08 05:59] VITALS: BP 112/60
--- NOTE | 2017-08-08 07:45 | PN ---
DATE: 08/06/2017 PSYCHIATRIC PROGRESS NOTE This late entry 08/06/2017 covers elements, not covered in my initial note of 08/06/2017. I met with the patient evening of 08/06/2017. She remains confused, refused her eyedrops, does have a right conjunctivitis, slept 6 hours previous evening, wandering, disorganized, walked out of her room previous evening with no clothes, punching, hitting staff previous evening, remains confused 08/06/2017, but not aggressive. REVIEW OF SYSTEMS: No CV, , pulmonary, eye, ENT system symptoms on review. Reliability poor. MENTAL STATUS EXAM: Oriented to herself. Insight, judgment, recent and remote memory, attention, concentration, fund of knowledge poor consistent with her diagnosis mentioned in my initial note. IMPRESSION: Schizoaffective disorder, bipolar type, mixed with psychotic features; major neurocognitive disorder, Alzheimer, vascular with depression, delusion, behavioral disturbance. Rest unchanged. PLAN: Continue psychotropics mentioned in my initial note. MAN Garret EPPS MD DR: KEMAR/rashaun JOB#: [id number] / [id number]
--- NOTE | 2017-08-08 07:58 | PN ---
DATE: 08/07/2017 PSYCHIATRIC PROGRESS NOTE This late entry 08/07/2017 covers elements, not covered in my initial note of 08/07/2017. I met with the patient evening of 08/07/2017. She remains confused, but not agitated or aggressive. REVIEW OF SYSTEMS: No CV, , pulmonary, eye, ENT system symptoms on review. Reliability poor. MENTAL STATUS EXAM: Oriented to herself. Insight, judgment, recent and remote memory, attention, concentration, fund of knowledge poor, consistent with her diagnosis mentioned in my initial note. IMPRESSION: Schizoaffective disorder, bipolar type, mixed with psychotic features; major neurocognitive disorder, Alzheimer, vascular with delusion, depression, behavioral disturbance. Rest unchanged. PLAN: Continue psychotropics at current dosage. Valproic acid level therapeutic at 77. MAN Garret EPPS MD DR: KEMAR/rashaun JOB#: [id number] / [id number]
[2017-08-08] MEDS: LIPASE/PROTEAS/AMYLAS 10/34/55 CAPSULE.DR. PO SCH ×3 (08:36→16:59)
[2017-08-08] MEDS: levETIRAcetam 250 MG TABLET PO SCH ×2 (08:36→20:05)
[2017-08-08] MEDS: LACTOBACILLUS RHAMNOSUS GG 1 CAPSULE. PO SCH ×2 (08:36→20:04)
[2017-08-08] MEDS: FUROSEMIDE 20 MG TABLET PO SCH (08:37)
[2017-08-08] MEDS: FAMOTIDINE 20 MG TABLET PO SCH ×2 (08:37→20:05)
[2017-08-08] MEDS: GABAPENTIN 300 MG CAPSULE. PO SCH ×3 (08:37→20:04)
[2017-08-08 08:48] VITALS: BP 114/77
[2017-08-08] MEDS: SODIUM CHLORIDE 5% OPHTH SOLUTION 15ML BOTTLE. OU SCH ×4 (09:00→20:09)
[2017-08-08] MEDS: NYSTATIN TOPICAL POWDER 15GM BOTTLE. TP SCH ×2 (11:17→23:47)
--- NOTE | 2017-08-08 11:19 | NUR ---
Behavior Intervention Response and Plan: BIRP Note: Behavior: Assumed Care of patient, patient located in Hallway at shift change. Patient exhibited the following behavior Calm, Compliant, and confused. Brief assessment on rounds of vital signs, medication needs, lab studies, and pain. Treatment plan problems Altered thought process and Fall Risk. Intervention: Patient assessed and the following interventions initiated safety checks 15 Minute Checks Cognitive Assessment , Head to toe Assessment , Medications. Response: After interactions and interventions patient responded in the following manner, Calm, confused, and Cooperative. Continue to assess behaviors and condition will continue to monitor throughout the shift as needed. Patient educated on ADL's, and hand hygiene. 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 Continue to assess patient for changes in above assessment. Monitor for medication needs, pain, and safety concerns. Hourly rounding performed to ensure safe environment.
--- NOTE | 2017-08-08 14:58 | PDOC ---
PROGRESS NOTES Diagnosis Problem Problems Medical Problems: (1) Change in mental status Status: Acute Assessment 1. Cough: Labs normal yesterday including WBC. Pt afebrile. Check CXR. 2. COPD: May need to adjust regular COPD meds. Check CXR to see if abx indicated. Problems: Plan of Care: see other orders Subjective I was asked to see pt as she c/o cough the last few days, and staff reports they hear wheezing. No fever, no chills, no altered mental status. VSS. Pt reports she has had a dry cough and has a hx of COPD. Objective Vital Signs Date Time Temp Pulse Resp B/P (MAP) Pulse Ox O2 Delivery O2 Flow Rate FiO2 08/08/17 08:48 84 20 114/77 (89) 97 08/08/17 05:59 97.1 08/05/17 16:19 Room Air Intake and Output 08/08/17 07:00 Intake Total 720 ml Balance 720 ml Intake Oral 720 ml # Voids 1 # Bowel Movements 1 Heart: Regular rate, Normal S1, Normal S2, No murmurs General: Alert, Cooperative, No acute distress HEENT: Mucous membr. moist/pink Lungs: Other (Resp effort non-labored. Breath sounds diminished throughout, no obvious wheezes or rhonchi noted) Neck: No JVD Neuro: Normal gait Skin: No rashes Review of Relevant I have reviewed the following items carol (where applicable) has been applied. Labs Laboratory Tests Test 08/07/17 08:53 White Blood Count 8.1 x10^3/uL (4.0-11.0) Red Blood Count 4.98 x10^6/uL (3.50-5.40) Hemoglobin 12.1 g/dL (12.0-15.5) Hematocrit 37.9 % (36.0-47.0) Mean Corpuscular Volume 76 fL (79-100) Mean Corpuscular Hemoglobin 24 pg (25-35) Mean Corpuscular Hemoglobin Concent 32 g/dL (31-37) Red Cell Distribution Width 16.2 % (11.5-14.5) Platelet Count 261 x10^3/uL (140-400) Neutrophils (%) (Auto) 76 % (31-73) Lymphocytes (%) (Auto) 14 % (24-48) Monocytes (%) (Auto) 8 % (0-9) Eosinophils (%) (Auto) 2 % (0-3) Basophils (%) (Auto) 1 % (0-3) Neutrophils # (Auto) 6.2 x10^3uL (1.8-7.7) Lymphocytes # (Auto) 1.1 x10^3/uL (1.0-4.8) Monocytes # (Auto) 0.6 x10^3/uL (0.0-1.1) Eosinophils # (Auto) 0.1 x10^3/uL (0.0-0.7) Basophils # (Auto) 0.1 x10^3/uL (0.0-0.2) Sodium Level 142 mmol/L (136-145) Potassium Level 3.6 mmol/L (3.5-5.1) Chloride Level 105 mmol/L (98-107) Carbon Dioxide Level 30 mmol/L (21-32) Anion Gap 7 (6-14) Blood Urea Nitrogen 8 mg/dL (7-20) Creatinine 0.7 mg/dL (0.6-1.0) Estimated GFR (Cockcroft-Gault) 86.9 BUN/Creatinine Ratio 11 (6-20) Glucose Level 120 mg/dL (70-99) Calcium Level 8.9 mg/dL (8.5-10.1) Total Bilirubin 0.3 mg/dL (0.2-1.0) Aspartate Amino Transf (AST/SGOT) 18 U/L (15-37) Alanine Aminotransferase (ALT/SGPT) 14 U/L (14-59) Alkaline Phosphatase 137 U/L (46-116) Total Protein 7.2 g/dL (6.4-8.2) Albumin 2.5 g/dL (3.4-5.0) Albumin/Globulin Ratio 0.5 (1.0-1.7) Medications Current Medications Sodium Chloride 1,000 ml @ 1,000 mls/hr Q1H IV Last administered on 07/23/17at 18:00; Start 07/23/17 at 18:00; Stop 07/23/17 at 18:59; Status DC Potassium Chloride (KCl Oral Soln) 40 meq 1X STAT PO Last administered on at 20:06; Start 07/23/17 at 19:45; Stop 07/23/17 at 19:48; Status DC Cephalexin HCl (Keflex) 500 mg 1X ONCE PO Last administered on 07/23/17at 20:10 ; Start 07/23/17 at 20:15; Stop 07/23/17 at 20:16; Status DC Cephalexin HCl (Keflex) 500 mg TID PO Last administered on 07/25/17at 19:45; Start 07/24/17 at 09:00; Stop 07/26/17 at 18:23; Status DC Aripiprazole (Abilify) 5 mg DAILY PO Last administered on 07/26/17at 08:07; Start 07/24/17 at 09:00; Stop 07/26/17 at 19:19; Status DC Benztropine Mesylate (Cogentin) 0.5 mg BID PO Last administered on 07/25/17at 19 :45; Start 07/23/17 at 21:00; Stop 07/25/17 at 21:10; Status DC Clonazepam (KlonoPIN) 0.5 mg BID PO Last administered on 07/28/17at 08:51; Start 07/23/17 at 21:00; Stop 07/28/17 at 18:19; Status DC Trazodone HCl (Desyrel) 150 mg QHS PO Last administered on 08/07/17at 20:08; Start 07/23/17 at 21:00 Hydroxyzine HCl (Atarax) 50 mg PRN Q6HRS PRN PO ANXIETY/AGITATION Last administered on 08/05/17at 21:20; Start 07/23/17 at 21:00 Acetaminophen/ Codeine Phosphate (Tylenol #3) 1 tab QID PO Last administered on 07/31/17at 13:09; Start 07/23/17 at 21:00; Stop 07/31/17 at 18:23; Status DC Acetazolamide (Diamox) 250 mg BID PO ; Start 07/23/17 at 21:00; Stop 07/23/17 at 21:23; Status DC Famotidine (Pepcid) 20 mg BID PO Last administered on 08/08/17at 08:37; Start at 21:00 Furosemide (Lasix) 40 mg DAILY PO Last administered on 07/29/17at 09:07; Start 07/24/17 at 09:00; Stop 07/29/17 at 18:49; Status DC Gabapentin (Neurontin) 300 mg TID PO Last administered on 08/08/17 14:52; Start 07/23/17 at 21:00 Albuterol/ Ipratropium (Duoneb) 3 ml PRN TID PRN NEB SHORTNESS OF BREATH; Start 07/23/17 at 21:00 Levetiracetam (Keppra) 250 mg BID PO Last administered on 08/08/17 08:36; Start 07/23/17 at 21:00 Levothyroxine Sodium (Synthroid) 75 mcg DAILY07 PO Last administered on 05:53; Start 07/24/17 at 07:00 Nystatin (Mycostatin) 1 nery PRN BID PRN TP RASH Last administered on 08/04/17 07:35; Start 07/23/17 at 21:00 Polyethylene Glycol (miraLAX) 17 gm PRN DAILY PRN PO CONSTIPATION Last administered on 07/24/17 12:44; Start 07/24/17 at 09:00 Sennosides (Senna) 8.6 mg PRN DAILY PRN PO CONSTIPATION Last administered on 12:44; Start 07/23/17 at 21:00 Amylase/Lipase/ Protease (Zenpep 10,000) 1 cap TIDWMEALS PO Last administered on 08/08/17 12:39; Start 07/24/17 at 08:00 Al Hydroxide/Mg Hydroxide (Mylanta Plus Xs) 30 ml PRN Q4HRS PRN PO DYSPEPSIA; Start 07/23/17 at 21:15 Sodium Chloride (Jasmeet-5) 1 drop QID OU Last administered on 08/07/17 13:06; Start 07/23/17 at 21:00 Acetazolamide (Diamox) 250 mg BID PO Last administered on 07/29/17 09:11; Start 07/24/17 at 09:00; Stop 07/29/17 at 18:49; Status DC Lactobacillus Rhamnosus (Culturelle) 1 cap BID PO Last administered on 08:36; Start 07/24/17 at 21:00 Benztropine Mesylate (Cogentin) 0.5 mg DAILY PO Last administered on 2/21/18at 08:26; Start 07/26/17 at 09:00; Stop 08/04/17 at 18:47; Status DC Divalproex Sodium (Depakote Er) 500 mg QHS PO Last administered on 07/28/17at 19 :27; Start 07/25/17 at 21:30; Stop 07/29/17 at 19:19; Status DC Risperidone (RisperDAL) 0.5 mg HS PO Last administered on 08/03/17at 19:05; Start 07/26/17 at 21:00; Stop 08/04/17 at 18:47; Status DC Clonazepam (KlonoPIN) 0.25 mg BID PO Last administered on 08/01/17at 07:45; Start 07/28/17 at 21:00; Stop 08/01/17 at 20:59; Status DC Clonazepam (KlonoPIN) 0.25 mg DAILY PO Last administered on 08/03/17at 08:40; Start 08/01/17 at 09:00; Stop 08/04/17 at 08:59; Status DC Divalproex Sodium (Depakote Er) 1,000 mg QHS PO Last administered on 08/07/17 20:07; Start 07/29/17 at 21:00 Acetaminophen/ Codeine Phosphate (Tylenol #3) 1 tab PRN QID PRN PO PAIN Last administered on 08/05/17at 05:51; Start 07/31/17 at 18:30 Mirtazapine (Remeron) 7.5 mg QHS PO Last administered on 08/07/17at 20:08; Start 08/03/17 at 21:00 Nystatin (Nystop) 1 nery BID TP Last administered on 08/08/17at 11:17; Start at 21:00 Risperidone (RisperDAL) 2.75 mg HS PO ; Start 08/04/17 at 21:00; Stop 08/04/17 at 21:00; Status DC Risperidone (RisperDAL) 0.75 mg HS PO Last administered on 08/07/17at 20:07; Start 08/04/17 at 21:00 Furosemide (Lasix) 10 mg DAILY PO Last administered on 08/08/17at 08:37; Start 08/06/17 at 14:00 Active Scripts Active Reported Nystatin 15 Gm Oint...g. 1 Nery TP PRN BID PRN Keppra (Levetiracetam) 250 Mg Tablet 250 Mg PO BID Neurontin (Gabapentin) 300 Mg Capsule 300 Mg PO TID Jasmeet-128 (Sodium Chloride) 15 Ml Drops 1 Drop OU QID 30 Days Maalox Advanced Suspension (Mag Hydrox/Aluminum Hyd/Simeth) 355 Ml Oral.susp 30 Ml PO PRN Q4HRS PRN Pepcid (Famotidine) 20 Mg Tablet 20 Mg PO BID 30 Days Senokot (Sennosides) 8.6 Mg Tablet 8.6 Mg PO PRN DAILY PRN Miralax (Polyethylene Glycol 3350) 119 Gm Powder 17 Gm PO PRN DAILY PRN Duoneb 0.5-3(2.5) Mg/3 Ml (Albuterol/Ipratropium) 3 Ml Ampul.neb 3 Ml NEB PRN TID PRN Hydroxyzine Pamoate 50 Mg Capsule 50 Mg PO PRN Q6HRS PRN Trazodone Hcl 150 Mg Tablet 150 Mg PO QHS Paroxetine Hcl 30 Mg Tablet 30 Mg PO DAILY Levothyroxine Sodium 75 Mcg Tablet 75 Mcg PO DAILY07 Furosemide 40 Mg Tablet 40 Mg PO DAILY Creon 12,000 Units Capsule (Lipase/Protease/Amylase) 1 Each Capsule. 1 Cap PO TIDWMEALS Clonazepam 0.5 Mg Tablet 0.5 Mg PO BID Benztropine Mesylate 0.5 Mg Tablet 0.5 Mg PO BID Abilify (Aripiprazole) 5 Mg Tablet 5 Mg PO DAILY Acetazolamide 250 Mg Tablet 250 Mg PO BID Tylenol With Codeine #3 Tablet (Acetaminophen With Codeine) 1 Each Tablet 1 Tab PO QID Vitals/I & O Vital Sign - Last 24 Hours 08/07/17 08/08/17 08/08/17 16:04 05:59 08:48 Temp 97.9 97.1 Pulse 87 79 84 Resp 16 20 20 B/P (MAP) 103/55 (71) 112/60 (77) 114/77 (89) Pulse Ox 94 96 97 Intake and Output 08/07/17 08/07/17 08/08/17 15:00 23:00 07:00 Intake Total 360 ml 240 ml 120 ml Balance 360 ml 240 ml 120 ml NISA NICOLE MD Aug 08, 2017 14:58
[2017-08-08] MEDS: IPRATRPIUM/ALBUTEROL 0.5/2.5MG 3 ML NEBU. NEB SCH ×2 (15:00→22:07)
[2017-08-08 16:21] VITALS: BP 102/56
--- NOTE | 2017-08-08 19:19 | PDOC ---
Exam Note: Michael Note: Please also refer to the separate dictated note~for this date of service dictated separately.~Patient seen individually. Discussed the patient with Nursing staff reviewed the chart.~Reviewed interim history and current functioning. Reviewed vital signs,~Labs/ Radiology~and current medications noted below. Continue current treatment with the changes noted in the dictated addendum note Assessment: Vital Signs: Vital Signs Date Time Temp Pulse Resp B/P (MAP) Pulse Ox O2 Delivery O2 Flow Rate FiO2 08/08/17 16:21 98.4 70 18 102/56 (71) 97 08/05/17 16:19 Room Air I&O Intake and Output 08/08/17 07:00 Intake Total 720 ml Balance 720 ml Intake Oral 720 ml # Voids 1 # Bowel Movements 1 Current Medications: Meds: Current Medications Sodium Chloride 1,000 ml @ 1,000 mls/hr Q1H IV Last administered on 07/23/17 18:00; Start 07/23/17 at 18:00; Stop 07/23/17 at 18:59; Status DC Potassium Chloride (KCl Oral Soln) 40 meq 1X STAT PO Last administered on at 20:06; Start 07/23/17 at 19:45; Stop 07/23/17 at 19:48; Status DC Cephalexin HCl (Keflex) 500 mg 1X ONCE PO Last administered on 07/23/17at 20:10 ; Start 07/23/17 at 20:15; Stop 07/23/17 at 20:16; Status DC Cephalexin HCl (Keflex) 500 mg TID PO Last administered on 07/25/17at 19:45; Start 07/24/17 at 09:00; Stop 07/26/17 at 18:23; Status DC Aripiprazole (Abilify) 5 mg DAILY PO Last administered on 07/26/17at 08:07; Start 07/24/17 at 09:00; Stop 07/26/17 at 19:19; Status DC Benztropine Mesylate (Cogentin) 0.5 mg BID PO Last administered on 07/25/17at 19 :45; Start 07/23/17 at 21:00; Stop 07/25/17 at 21:10; Status DC Clonazepam (KlonoPIN) 0.5 mg BID PO Last administered on 07/28/17at 08:51; Start 07/23/17 at 21:00; Stop 07/28/17 at 18:19; Status DC Trazodone HCl (Desyrel) 150 mg QHS PO Last administered on 08/07/17at 20:08; Start 07/23/17 at 21:00 Hydroxyzine HCl (Atarax) 50 mg PRN Q6HRS PRN PO ANXIETY/AGITATION Last administered on 08/05/17at 21:20; Start 07/23/17 at 21:00 Acetaminophen/ Codeine Phosphate (Tylenol #3) 1 tab QID PO Last administered on 07/31/17at 13:09; Start 07/23/17 at 21:00; Stop 07/31/17 at 18:23; Status DC Acetazolamide (Diamox) 250 mg BID PO ; Start 07/23/17 at 21:00; Stop 07/23/17 at 21:23; Status DC Famotidine (Pepcid) 20 mg BID PO Last administered on 08/08/17 08:37; Start at 21:00 Furosemide (Lasix) 40 mg DAILY PO Last administered on 07/29/17at 09:07; Start 07/24/17 at 09:00; Stop 07/29/17 at 18:49; Status DC Gabapentin (Neurontin) 300 mg TID PO Last administered on 08/08/17 14:52; Start 07/23/17 at 21:00 Albuterol/ Ipratropium (Duoneb) 3 ml PRN TID PRN NEB SHORTNESS OF BREATH; Start 07/23/17 at 21:00; Stop 08/08/17 at 14:59; Status DC Levetiracetam (Keppra) 250 mg BID PO Last administered on 08/08/17 08:36; Start 07/23/17 at 21:00 Levothyroxine Sodium (Synthroid) 75 mcg DAILY07 PO Last administered on 05:53; Start 07/24/17 at 07:00 Nystatin (Mycostatin) 1 nery PRN BID PRN TP RASH Last administered on 08/04/17at 07:35; Start 07/23/17 at 21:00 Polyethylene Glycol (miraLAX) 17 gm PRN DAILY PRN PO CONSTIPATION Last administered on 07/24/17at 12:44; Start 07/24/17 at 09:00 Sennosides (Senna) 8.6 mg PRN DAILY PRN PO CONSTIPATION Last administered on 12:44; Start 07/23/17 at 21:00 Amylase/Lipase/ Protease (Zenpep 10,000) 1 cap TIDWMEALS PO Last administered on 08/08/17 16:59; Start 07/24/17 at 08:00 Al Hydroxide/Mg Hydroxide (Mylanta Plus Xs) 30 ml PRN Q4HRS PRN PO DYSPEPSIA; Start 07/23/17 at 21:15 Sodium Chloride (Jasmeet-5) 1 drop QID OU Last administered on 08/08/17 16:51; Start 07/23/17 at 21:00 Acetazolamide (Diamox) 250 mg BID PO Last administered on 07/29/17 09:11; Start 07/24/17 at 09:00; Stop 07/29/17 at 18:49; Status DC Lactobacillus Rhamnosus (Culturelle) 1 cap BID PO Last administered on at 08:36; Start 07/24/17 at 21:00 Benztropine Mesylate (Cogentin) 0.5 mg DAILY PO Last administered on 08/04/17 08:26; Start 07/26/17 at 09:00; Stop 08/04/17 at 18:47; Status DC Divalproex Sodium (Depakote Er) 500 mg QHS PO Last administered on 07/28/17at 19 :27; Start 07/25/17 at 21:30; Stop 07/29/17 at 19:19; Status DC Risperidone (RisperDAL) 0.5 mg HS PO Last administered on 08/03/17 19:05; Start 07/26/17 at 21:00; Stop 08/04/17 at 18:47; Status DC Clonazepam (KlonoPIN) 0.25 mg BID PO Last administered on 08/01/17at 07:45; Start 07/28/17 at 21:00; Stop 08/01/17 at 20:59; Status DC Clonazepam (KlonoPIN) 0.25 mg DAILY PO Last administered on 08/03/17at 08:40; Start 08/01/17 at 09:00; Stop 08/04/17 at 08:59; Status DC Divalproex Sodium (Depakote Er) 1,000 mg QHS PO Last administered on 08/07/17at 20:07; Start 07/29/17 at 21:00 Acetaminophen/ Codeine Phosphate (Tylenol #3) 1 tab PRN QID PRN PO PAIN Last administered on 08/05/17at 05:51; Start 07/31/17 at 18:30 Mirtazapine (Remeron) 7.5 mg QHS PO Last administered on 08/07/17at 20:08; Start 08/03/17 at 21:00 Nystatin (Nystop) 1 nery BID TP Last administered on 08/08/17at 11:17; Start at 21:00 Risperidone (RisperDAL) 2.75 mg HS PO ; Start 08/04/17 at 21:00; Stop 08/04/17 at 21:00; Status DC Risperidone (RisperDAL) 0.75 mg HS PO Last administered on 08/07/17at 20:07; Start 08/04/17 at 21:00 Furosemide (Lasix) 10 mg DAILY PO Last administered on 08/08/17at 08:37; Start 08/06/17 at 14:00 Albuterol/ Ipratropium (Duoneb) 3 ml TID NEB ; Start 08/08/17 at 15:00 Active Scripts Active Reported Nystatin 15 Gm Oint...g. 1 Nery TP PRN BID PRN Keppra (Levetiracetam) 250 Mg Tablet 250 Mg PO BID Neurontin (Gabapentin) 300 Mg Capsule 300 Mg PO TID Jasmeet-128 (Sodium Chloride) 15 Ml Drops 1 Drop OU QID 30 Days Maalox Advanced Suspension (Mag Hydrox/Aluminum Hyd/Simeth) 355 Ml Oral.susp 30 Ml PO PRN Q4HRS PRN Pepcid (Famotidine) 20 Mg Tablet 20 Mg PO BID 30 Days Senokot (Sennosides) 8.6 Mg Tablet 8.6 Mg PO PRN DAILY PRN Miralax (Polyethylene Glycol 3350) 119 Gm Powder 17 Gm PO PRN DAILY PRN Duoneb 0.5-3(2.5) Mg/3 Ml (Albuterol/Ipratropium) 3 Ml Ampul.neb 3 Ml NEB PRN TID PRN Hydroxyzine Pamoate 50 Mg Capsule 50 Mg PO PRN Q6HRS PRN Trazodone Hcl 150 Mg Tablet 150 Mg PO QHS Paroxetine Hcl 30 Mg Tablet 30 Mg PO DAILY Levothyroxine Sodium 75 Mcg Tablet 75 Mcg PO DAILY07 Furosemide 40 Mg Tablet 40 Mg PO DAILY Creon 12,000 Units Capsule (Lipase/Protease/Amylase) 1 Each Capsule.dr 1 Cap PO TIDWMEALS Clonazepam 0.5 Mg Tablet 0.5 Mg PO BID Benztropine Mesylate 0.5 Mg Tablet 0.5 Mg PO BID Abilify (Aripiprazole) 5 Mg Tablet 5 Mg PO DAILY Acetazolamide 250 Mg Tablet 250 Mg PO BID Tylenol With Codeine #3 Tablet (Acetaminophen With Codeine) 1 Each Tablet 1 Tab PO QID I have reviewed the current psychotropics carefully including drug interactions. Risk benefit ratio favors no change other than as noted in my dictated progress note. Diagnosis: Problems: (1) Change in mental status (2) Anxiety disorder (3) Bipolar affective, mixed, sev w/ psych (4) Impulse control disorder (5) Schizoaffective disorder, chronic condition with acute exacerbation ULISSES EPPS MD Aug 08, 2017 19:19
[2017-08-08] MEDS: MIRTAZAPINE 7.5 MG TABLET. PO SCH (20:04)
[2017-08-08] MEDS: DIVALPROEX ER 500 MG TAB.ER.24H PO SCH (20:05)
[2017-08-08] MEDS: traZODone 150 MG TABLET. PO SCH (20:05)
[2017-08-08] MEDS: risperiDONE 0.5 MG TABLET. PO SCH (20:05)
--- NOTE | 2017-08-09 01:24 | NUR ---
Behavior Intervention Response and Plan: BIRP Note: Behavior: Assumed Care of patient, patient located in Hallway at shift change. Patient exhibited the following behavior Calm, Wandering, Compliant. Brief assessment on rounds of vital signs, medication needs, lab studies, and pain. Treatment plan problems Altered thought process and Fall Risk. Intervention: Patient assessed and the following interventions initiated safety checks 15 Minute Checks Cognitive Assessment , Head to toe Assessment , Medications. Response: After interactions and interventions patient responded in the following manner, Calm , Compliant ,Cooperative. Continue to assess behaviors and condition will continue to monitor throughout the shift as needed. Patient educated on ADL's, and hand hygiene. Plan: Continue to monitor Master Treatment Plan for patient's progress toward short term goals of Decreased Anxiety, Improved Mood, prison goals to return to previous living setting vs placement. Continue to assess patient for changes in above assessment. Monitor for medication needs, pain, and safety concerns. Hourly rounding performed to ensure safe environment.
[2017-08-09] MEDS: IPRATRPIUM/ALBUTEROL 0.5/2.5MG 3 ML NEBU. NEB SCH ×3 (06:09→21:32)
[2017-08-09] MEDS: LEVOTHYROXINE 75 MCG TABLET PO SCH (06:14)
[2017-08-09 06:46] VITALS: BP 100/60
--- NOTE | 2017-08-09 07:24 | RAD ---
Chest, 2 views, 08/08/2017: History: Cough, COPD Comparison is made to a study from 07/23/2017. The heart size and pulmonary vascularity are normal. There is calcific plaquing of aorta. No pulmonary infiltrates are seen. There is no evidence of pleural fluid. IMPRESSION: No acute cardiopulmonary abnormality is detected.
[2017-08-09] MEDS: LACTOBACILLUS RHAMNOSUS GG 1 CAPSULE. PO SCH ×2 (08:28→19:58)
[2017-08-09] MEDS: SODIUM CHLORIDE 5% OPHTH SOLUTION 15ML BOTTLE. OU SCH ×4 (08:28→19:59)
[2017-08-09] MEDS: LIPASE/PROTEAS/AMYLAS 10/34/55 CAPSULE.DR. PO SCH ×3 (08:28→16:29)
[2017-08-09] MEDS: levETIRAcetam 250 MG TABLET PO SCH ×2 (08:29→19:58)
[2017-08-09] MEDS: FUROSEMIDE 20 MG TABLET PO SCH (08:29)
[2017-08-09] MEDS: NYSTATIN TOPICAL POWDER 15GM BOTTLE. TP SCH ×2 (08:29→19:58)
[2017-08-09] MEDS: FAMOTIDINE 20 MG TABLET PO SCH ×2 (08:29→19:58)
[2017-08-09] MEDS: GABAPENTIN 300 MG CAPSULE. PO SCH ×3 (08:29→19:58)
[2017-08-09] MEDS: ACETAMINOPHEN/CODEINE 300/30MG TABLET PO PRN ×2 (10:43→16:29)
--- NOTE | 2017-08-09 10:48 | NUR ---
Behavior Intervention Response and Plan: BIRP Note: Behavior: Assumed Care of patient, patient located in Hallway at shift change. Patient exhibited the following behavior Calm, Compliant, and appropriate. Brief assessment on rounds of vital signs, medication needs, lab studies, and pain. Treatment plan problems Altered thought process and Fall Risk. Intervention: Patient assessed and the following interventions initiated safety checks 15 Minute Checks Cognitive Assessment , Head to toe Assessment , Medications. Response: After interactions and interventions patient responded in the following manner, Calm, happy, interactive, and Cooperative. Continue to assess behaviors and condition will continue to monitor throughout the shift as needed. Patient educated on ADL's, and hand hygiene. 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 Continue to assess patient for changes in above assessment. Monitor for medication needs, pain, and safety concerns. Hourly rounding performed to ensure safe environment.
[2017-08-09 15:44] VITALS: BP 95/57
--- NOTE | 2017-08-09 18:45 | PDOC ---
Exam Note: Michael Note: Please also refer to the separate dictated note~for this date of service dictated separately.~Patient seen individually. Discussed the patient with Nursing staff reviewed the chart.~Reviewed interim history and current functioning. Reviewed vital signs,~Labs/ Radiology~and current medications noted below. Continue current treatment with the changes noted in the dictated addendum note Assessment: Vital Signs: Vital Signs Date Time Temp Pulse Resp B/P (MAP) Pulse Ox O2 Delivery O2 Flow Rate FiO2 08/09/17 17:33 18 08/09/17 15:44 98.3 80 95/57 (70) 95 08/09/17 10:23 Room Air I&O Intake and Output 08/09/17 07:00 Intake Total 1200 ml Balance 1200 ml Intake Oral 1200 ml # Voids 1 # Bowel Movements 2 Current Medications: Meds: Current Medications Sodium Chloride 1,000 ml @ 1,000 mls/hr Q1H IV Last administered on 07/23/17 18:00; Start 07/23/17 at 18:00; Stop 07/23/17 at 18:59; Status DC Potassium Chloride (KCl Oral Soln) 40 meq 1X STAT PO Last administered on 20:06; Start 07/23/17 at 19:45; Stop 07/23/17 at 19:48; Status DC Cephalexin HCl (Keflex) 500 mg 1X ONCE PO Last administered on 07/23/17at 20:10 ; Start 07/23/17 at 20:15; Stop 07/23/17 at 20:16; Status DC Cephalexin HCl (Keflex) 500 mg TID PO Last administered on 07/25/17at 19:45; Start 07/24/17 at 09:00; Stop 07/26/17 at 18:23; Status DC Aripiprazole (Abilify) 5 mg DAILY PO Last administered on 07/26/17at 08:07; Start 07/24/17 at 09:00; Stop 07/26/17 at 19:19; Status DC Benztropine Mesylate (Cogentin) 0.5 mg BID PO Last administered on 07/25/17at 19 :45; Start 07/23/17 at 21:00; Stop 07/25/17 at 21:10; Status DC Clonazepam (KlonoPIN) 0.5 mg BID PO Last administered on 07/28/17at 08:51; Start 07/23/17 at 21:00; Stop 07/28/17 at 18:19; Status DC Trazodone HCl (Desyrel) 150 mg QHS PO Last administered on 08/08/17at 20:05; Start 07/23/17 at 21:00 Hydroxyzine HCl (Atarax) 50 mg PRN Q6HRS PRN PO ANXIETY/AGITATION Last administered on 08/05/17at 21:20; Start 07/23/17 at 21:00 Acetaminophen/ Codeine Phosphate (Tylenol #3) 1 tab QID PO Last administered on 07/31/17at 13:09; Start 07/23/17 at 21:00; Stop 07/31/17 at 18:23; Status DC Acetazolamide (Diamox) 250 mg BID PO ; Start 07/23/17 at 21:00; Stop 07/23/17 at 21:23; Status DC Famotidine (Pepcid) 20 mg BID PO Last administered on 08/09/17at 08:29; Start at 21:00 Furosemide (Lasix) 40 mg DAILY PO Last administered on 07/29/17at 09:07; Start 07/24/17 at 09:00; Stop 07/29/17 at 18:49; Status DC Gabapentin (Neurontin) 300 mg TID PO Last administered on 08/09/17at 14:02; Start 07/23/17 at 21:00 Albuterol/ Ipratropium (Duoneb) 3 ml PRN TID PRN NEB SHORTNESS OF BREATH; Start 07/23/17 at 21:00; Stop 08/08/17 at 14:59; Status DC Levetiracetam (Keppra) 250 mg BID PO Last administered on 08/09/17at 08:29; Start 07/23/17 at 21:00 Levothyroxine Sodium (Synthroid) 75 mcg DAILY07 PO Last administered on at 06:14; Start 07/24/17 at 07:00 Nystatin (Mycostatin) 1 nery PRN BID PRN TP RASH Last administered on 08/04/17at 07:35; Start 07/23/17 at 21:00 Polyethylene Glycol (miraLAX) 17 gm PRN DAILY PRN PO CONSTIPATION Last administered on 07/24/17 12:44; Start 07/24/17 at 09:00 Sennosides (Senna) 8.6 mg PRN DAILY PRN PO CONSTIPATION Last administered on 12:44; Start 07/23/17 at 21:00 Amylase/Lipase/ Protease (Zenpep 10,000) 1 cap TIDWMEALS PO Last administered on 08/09/17 16:29; Start 07/24/17 at 08:00 Al Hydroxide/Mg Hydroxide (Mylanta Plus Xs) 30 ml PRN Q4HRS PRN PO DYSPEPSIA; Start 07/23/17 at 21:15 Sodium Chloride (Jasmeet-5) 1 drop QID OU Last administered on 08/09/17 08:28; Start 07/23/17 at 21:00 Acetazolamide (Diamox) 250 mg BID PO Last administered on 07/29/17at 09:11; Start 07/24/17 at 09:00; Stop 07/29/17 at 18:49; Status DC Lactobacillus Rhamnosus (Culturelle) 1 cap BID PO Last administered on at 08:28; Start 07/24/17 at 21:00 Benztropine Mesylate (Cogentin) 0.5 mg DAILY PO Last administered on 08/04/17 08:26; Start 07/26/17 at 09:00; Stop 08/04/17 at 18:47; Status DC Divalproex Sodium (Depakote Er) 500 mg QHS PO Last administered on 07/28/17 19 :27; Start 07/25/17 at 21:30; Stop 07/29/17 at 19:19; Status DC Risperidone (RisperDAL) 0.5 mg HS PO Last administered on 08/03/17 19:05; Start 07/26/17 at 21:00; Stop 08/04/17 at 18:47; Status DC Clonazepam (KlonoPIN) 0.25 mg BID PO Last administered on 08/01/17at 07:45; Start 07/28/17 at 21:00; Stop 08/01/17 at 20:59; Status DC Clonazepam (KlonoPIN) 0.25 mg DAILY PO Last administered on 08/03/17at 08:40; Start 08/01/17 at 09:00; Stop 08/04/17 at 08:59; Status DC Divalproex Sodium (Depakote Er) 1,000 mg QHS PO Last administered on 08/08/17at 20:05; Start 07/29/17 at 21:00 Acetaminophen/ Codeine Phosphate (Tylenol #3) 1 tab PRN QID PRN PO PAIN Last administered on 08/09/17at 16:29; Start 07/31/17 at 18:30 Mirtazapine (Remeron) 7.5 mg QHS PO Last administered on 08/08/17at 20:04; Start 08/03/17 at 21:00 Nystatin (Nystop) 1 nery BID TP Last administered on 08/09/17at 08:29; Start at 21:00 Risperidone (RisperDAL) 2.75 mg HS PO ; Start 08/04/17 at 21:00; Stop 08/04/17 at 21:00; Status DC Risperidone (RisperDAL) 0.75 mg HS PO Last administered on 08/08/17at 20:05; Start 08/04/17 at 21:00 Furosemide (Lasix) 10 mg DAILY PO Last administered on 08/09/17at 08:29; Start 08/06/17 at 14:00 Albuterol/ Ipratropium (Duoneb) 3 ml TID NEB Last administered on 08/09/17at 10: 22; Start 08/08/17 at 15:00 Active Scripts Active Reported Nystatin 15 Gm Oint...g. 1 Nery TP PRN BID PRN Keppra (Levetiracetam) 250 Mg Tablet 250 Mg PO BID Neurontin (Gabapentin) 300 Mg Capsule 300 Mg PO TID Jasmeet-128 (Sodium Chloride) 15 Ml Drops 1 Drop OU QID 30 Days Maalox Advanced Suspension (Mag Hydrox/Aluminum Hyd/Simeth) 355 Ml Oral.susp 30 Ml PO PRN Q4HRS PRN Pepcid (Famotidine) 20 Mg Tablet 20 Mg PO BID 30 Days Senokot (Sennosides) 8.6 Mg Tablet 8.6 Mg PO PRN DAILY PRN Miralax (Polyethylene Glycol 3350) 119 Gm Powder 17 Gm PO PRN DAILY PRN Duoneb 0.5-3(2.5) Mg/3 Ml (Albuterol/Ipratropium) 3 Ml Ampul.neb 3 Ml NEB PRN TID PRN Hydroxyzine Pamoate 50 Mg Capsule 50 Mg PO PRN Q6HRS PRN Trazodone Hcl 150 Mg Tablet 150 Mg PO QHS Paroxetine Hcl 30 Mg Tablet 30 Mg PO DAILY Levothyroxine Sodium 75 Mcg Tablet 75 Mcg PO DAILY07 Furosemide 40 Mg Tablet 40 Mg PO DAILY Creon Dr 12,000 Units Capsule (Lipase/Protease/Amylase) 1 Each Capsule.dr 1 Cap PO TIDWMEALS Clonazepam 0.5 Mg Tablet 0.5 Mg PO BID Benztropine Mesylate 0.5 Mg Tablet 0.5 Mg PO BID Abilify (Aripiprazole) 5 Mg Tablet 5 Mg PO DAILY Acetazolamide 250 Mg Tablet 250 Mg PO BID Tylenol With Codeine #3 Tablet (Acetaminophen With Codeine) 1 Each Tablet 1 Tab PO QID I have reviewed the current psychotropics carefully including drug interactions. Risk benefit ratio favors no change other than as noted in my dictated progress note. Diagnosis: Problems: (1) Change in mental status (2) Anxiety disorder (3) Bipolar affective, mixed, sev w/ psych (4) Impulse control disorder (5) Schizoaffective disorder, chronic condition with acute exacerbation ULISSES EPPS MD Aug 09, 2017 18:44
[2017-08-09] MEDS: MIRTAZAPINE 7.5 MG TABLET. PO SCH (19:57)
[2017-08-09] MEDS: risperiDONE 0.5 MG TABLET. PO SCH (19:58)
[2017-08-09] MEDS: DIVALPROEX ER 500 MG TAB.ER.24H PO SCH (19:58)
[2017-08-09] MEDS: traZODone 150 MG TABLET. PO SCH (20:00)
--- NOTE | 2017-08-09 20:59 | NUR ---
Behavior Intervention Response and Plan: BIRP Note: Behavior: Assumed Care of patient, patient located in Day Room at shift change. Patient exhibited the following behavior Interactive, Social, Calm. Brief assessment on rounds of vital signs, medication needs, lab studies, and pain. Treatment plan problems .1&2 Intervention: Patient assessed and the following interventions initiated safety checks 15 Minute Checks Cognitive Assessment , Head to toe Assessment , Medications. Response: After interactions and interventions patient responded in the following manner, Able to Focus on Task , Cooperative ,Appropriate. Continue to assess behaviors and condition will continue to monitor throughout the shift as needed. Patient educated on ADL's, and hand hygiene. Plan: Continue to monitor Master Treatment Plan for patient's progress toward short term goals of Improved Mood, Decreased Anxiety, terminal gauger goals to return to previous living setting vs placement. Continue to assess patient for changes in above assessment. Monitor for medication needs, pain, and safety concerns. Hourly rounding performed to ensure safe environment.
[2017-08-10] MEDS: IPRATRPIUM/ALBUTEROL 0.5/2.5MG 3 ML NEBU. NEB SCH ×3 (05:53→21:00)
[2017-08-10] MEDS: LEVOTHYROXINE 75 MCG TABLET PO SCH (06:09)
[2017-08-10 06:23] VITALS: BP 96/58
[2017-08-10] MEDS: levETIRAcetam 250 MG TABLET PO SCH ×2 (08:13→20:39)
[2017-08-10] MEDS: FUROSEMIDE 20 MG TABLET PO SCH (08:13)
[2017-08-10] MEDS: GABAPENTIN 300 MG CAPSULE. PO SCH ×3 (08:13→20:39)
[2017-08-10] MEDS: LACTOBACILLUS RHAMNOSUS GG 1 CAPSULE. PO SCH ×2 (08:14→20:38)
[2017-08-10] MEDS: FAMOTIDINE 20 MG TABLET PO SCH ×2 (08:14→20:39)
[2017-08-10] MEDS: LIPASE/PROTEAS/AMYLAS 10/34/55 CAPSULE.DR. PO SCH ×3 (08:14→17:00)
[2017-08-10] MEDS: SODIUM CHLORIDE 5% OPHTH SOLUTION 15ML BOTTLE. OU SCH ×4 (08:15→20:38)
[2017-08-10 08:16] LABS: URIC ACID 5.2 mg/dL (2.6-6.0)
[2017-08-10] MEDS: NYSTATIN TOPICAL POWDER 15GM BOTTLE. TP SCH ×2 (08:24→20:39)
--- NOTE | 2017-08-10 08:30 | NUR ---
SW spoke with pt this am, pt states her wrist hurts, however is able to hold on a conversation, pt affect is less flat. Pt states she knows she is in the hospital however, doesn't want to talk very much as she is in pain.
--- NOTE | 2017-08-10 09:43 | PN ---
DATE: 08/08/2017 PSYCHIATRIC PROGRESS NOTE This late entry 08/08/2017 covers elements not covered in my initial note of 08/08/2017. SUBJECTIVE: Met with the patient in the evening of 08/08/2017. Overall, the patient remains confused, but is doing better. She has some cold symptoms and wheezing, receiving breathing treatment, will defer to Dr. Sanford for medical management. REVIEW OF SYSTEMS: No CV, , pulmonary, eye, ENT system symptoms on review. Reliability is poor. MENTAL STATUS EXAM: Oriented to herself. Insight, judgment, recent and remote memory, attention, concentration, fund of knowledge poor, consistent with her diagnoses mentioned in my initial note. IMPRESSION: Major neurocognitive disorder, Alzheimer, vascular with depression, delusion, behavioral disturbance, schizoaffective disorder, bipolar type. PLAN: Continue psychotropics mentioned in my initial note, Klonopin is being tapered. She is on Risperdal, Keppra, trazodone, Depakote, and Neurontin. ULISSES EPPS MD DR: KEMAR/rashaun JOB#: [id number] / [id number]
--- NOTE | 2017-08-10 12:00 | NUR ---
Pt complaining of right wrist pain. Wrist is bruised, warm to the touch and significantly more swollen than left wrist. Xray ordered. Will continue to monitor.
--- NOTE | 2017-08-10 12:36 | NUR ---
Behavior Intervention Response and Plan: BIRP Note: Behavior: Assumed Care of patient, patient located in Dining Room at shift change. Patient exhibited the following behavior Calm, Interactive, Cooperative. Brief assessment on rounds of vital signs, medication needs, lab studies, and pain. Treatment plan problems 1-2. Intervention: Patient assessed and the following interventions initiated safety checks 15 Minute Checks Cognitive Assessment , Head to toe Assessment , Medications. Response: After interactions and interventions patient responded in the following manner, Disorganized , Interactive ,Compliant. Continue to assess behaviors and condition will continue to monitor throughout the shift as needed. Patient educated on ADL's, and hand hygiene. 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 Continue to assess patient for changes in above assessment. Monitor for medication needs, pain, and safety concerns. Hourly rounding performed to ensure safe environment.
--- NOTE | 2017-08-10 15:12 | RAD ---
2 views right wrist 08/10/2017 Clinical indication: Right wrist bruising with no known injury. Comparison: Right wrist radiograph 08/03/2017, 07/24/2017. Findings: Diffuse bony demineralization. No evidence of acute fracture or traumatic malalignment. Mild radiocarpal and moderate multilevel MCP, intercarpal and STT arthrosis with joint space narrowing. Impression: 1. No acute osseous abnormality. 2. 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
[2017-08-10 16:12] VITALS: BP 90/59
--- NOTE | 2017-08-10 19:05 | PDOC ---
Exam Note: Michael Note: Please also refer to the separate dictated note~for this date of service dictated separately.~Patient seen individually. Discussed the patient with Nursing staff reviewed the chart.~Reviewed interim history and current functioning. Reviewed vital signs,~Labs/ Radiology~and current medications noted below. Continue current treatment with the changes noted in the dictated addendum note Assessment: Vital Signs: Vital Signs Date Time Temp Pulse Resp B/P (MAP) Pulse Ox O2 Delivery O2 Flow Rate FiO2 08/10/17 16:12 97.5 80 20 90/59 (69) Room Air 08/10/17 11:31 100 I&O Intake and Output 08/10/17 07:00 Intake Total 1580 ml Balance 1580 ml Intake Oral 1580 ml # Voids 2 Labs: Laboratory Tests Test 08/10/17 07:43 Erythrocyte Sedimentation Rate 20 (0-25) Uric Acid 5.2 mg/dL (2.6-6.0) C-Reactive Protein 19.0 mg/L (0-3.3) H Current Medications: Meds: Current Medications Sodium Chloride 1,000 ml @ 1,000 mls/hr Q1H IV Last administered on 07/23/17at 18:00; Start 07/23/17 at 18:00; Stop 07/23/17 at 18:59; Status DC Potassium Chloride (KCl Oral Soln) 40 meq 1X STAT PO Last administered on at 20:06; Start 07/23/17 at 19:45; Stop 07/23/17 at 19:48; Status DC Cephalexin HCl (Keflex) 500 mg 1X ONCE PO Last administered on 07/23/17at 20:10 ; Start 07/23/17 at 20:15; Stop 07/23/17 at 20:16; Status DC Cephalexin HCl (Keflex) 500 mg TID PO Last administered on 07/25/17 19:45; Start 07/24/17 at 09:00; Stop 07/26/17 at 18:23; Status DC Aripiprazole (Abilify) 5 mg DAILY PO Last administered on 07/26/17at 08:07; Start 07/24/17 at 09:00; Stop 07/26/17 at 19:19; Status DC Benztropine Mesylate (Cogentin) 0.5 mg BID PO Last administered on 07/25/17at 19 :45; Start 07/23/17 at 21:00; Stop 07/25/17 at 21:10; Status DC Clonazepam (KlonoPIN) 0.5 mg BID PO Last administered on 07/28/17at 08:51; Start 07/23/17 at 21:00; Stop 07/28/17 at 18:19; Status DC Trazodone HCl (Desyrel) 150 mg QHS PO Last administered on 08/09/17at 20:00; Start 07/23/17 at 21:00 Hydroxyzine HCl (Atarax) 50 mg PRN Q6HRS PRN PO ANXIETY/AGITATION Last administered on 08/05/17 21:20; Start 07/23/17 at 21:00 Acetaminophen/ Codeine Phosphate (Tylenol #3) 1 tab QID PO Last administered on 07/31/17at 13:09; Start 07/23/17 at 21:00; Stop 07/31/17 at 18:23; Status DC Acetazolamide (Diamox) 250 mg BID PO ; Start 07/23/17 at 21:00; Stop 07/23/17 at 21:23; Status DC Famotidine (Pepcid) 20 mg BID PO Last administered on 08/10/17 08:14; Start at 21:00 Furosemide (Lasix) 40 mg DAILY PO Last administered on 07/29/17at 09:07; Start 07/24/17 at 09:00; Stop 07/29/17 at 18:49; Status DC Gabapentin (Neurontin) 300 mg TID PO Last administered on 08/10/17at 14:04; Start 07/23/17 at 21:00 Albuterol/ Ipratropium (Duoneb) 3 ml PRN TID PRN NEB SHORTNESS OF BREATH; Start 07/23/17 at 21:00; Stop 08/08/17 at 14:59; Status DC Levetiracetam (Keppra) 250 mg BID PO Last administered on 08/10/17at 08:13; Start 07/23/17 at 21:00 Levothyroxine Sodium (Synthroid) 75 mcg DAILY07 PO Last administered on 06:09; Start 07/24/17 at 07:00 Nystatin (Mycostatin) 1 nery PRN BID PRN TP RASH Last administered on 08/04/17 07:35; Start 07/23/17 at 21:00 Polyethylene Glycol (miraLAX) 17 gm PRN DAILY PRN PO CONSTIPATION Last administered on 07/24/17 12:44; Start 07/24/17 at 09:00 Sennosides (Senna) 8.6 mg PRN DAILY PRN PO CONSTIPATION Last administered on 12:44; Start 07/23/17 at 21:00 Amylase/Lipase/ Protease (Zenpep 10,000) 1 cap TIDWMEALS PO Last administered on 08/10/17 17:00; Start 07/24/17 at 08:00 Al Hydroxide/Mg Hydroxide (Mylanta Plus Xs) 30 ml PRN Q4HRS PRN PO DYSPEPSIA; Start 07/23/17 at 21:15 Sodium Chloride (Jasmeet-5) 1 drop QID OU Last administered on 08/10/17 17:00; Start 07/23/17 at 21:00 Acetazolamide (Diamox) 250 mg BID PO Last administered on 07/29/17 09:11; Start 07/24/17 at 09:00; Stop 07/29/17 at 18:49; Status DC Lactobacillus Rhamnosus (Culturelle) 1 cap BID PO Last administered on 08:14; Start 07/24/17 at 21:00 Benztropine Mesylate (Cogentin) 0.5 mg DAILY PO Last administered on 08/04/17 08:26; Start 07/26/17 at 09:00; Stop 08/04/17 at 18:47; Status DC Divalproex Sodium (Depakote Er) 500 mg QHS PO Last administered on 07/28/17 19 :27; Start 07/25/17 at 21:30; Stop 07/29/17 at 19:19; Status DC Risperidone (RisperDAL) 0.5 mg HS PO Last administered on 08/03/17 19:05; Start 07/26/17 at 21:00; Stop 08/04/17 at 18:47; Status DC Clonazepam (KlonoPIN) 0.25 mg BID PO Last administered on 08/01/17at 07:45; Start 07/28/17 at 21:00; Stop 08/01/17 at 20:59; Status DC Clonazepam (KlonoPIN) 0.25 mg DAILY PO Last administered on 08/03/17at 08:40; Start 08/01/17 at 09:00; Stop 08/04/17 at 08:59; Status DC Divalproex Sodium (Depakote Er) 1,000 mg QHS PO Last administered on 08/09/17 19:58; Start 07/29/17 at 21:00 Acetaminophen/ Codeine Phosphate (Tylenol #3) 1 tab PRN QID PRN PO PAIN Last administered on 08/09/17 16:29; Start 07/31/17 at 18:30 Mirtazapine (Remeron) 7.5 mg QHS PO Last administered on 08/09/17 19:57; Start 08/03/17 at 21:00 Nystatin (Nystop) 1 nery BID TP Last administered on 08/10/17 08:24; Start at 21:00 Risperidone (RisperDAL) 2.75 mg HS PO ; Start 08/04/17 at 21:00; Stop 08/04/17 at 21:00; Status DC Risperidone (RisperDAL) 0.75 mg HS PO Last administered on 08/09/17 19:58; Start 08/04/17 at 21:00 Furosemide (Lasix) 10 mg DAILY PO Last administered on 08/10/17at 08:13; Start 08/06/17 at 14:00 Albuterol/ Ipratropium (Duoneb) 3 ml TID NEB Last administered on 08/10/17at 11: 31; Start 08/08/17 at 15:00 Meloxicam (Mobic) 15 mg DAILY PO ; Start 08/11/17 at 09:00 Active Scripts Active Reported Nystatin 15 Gm Oint...g. 1 Nery TP PRN BID PRN Keppra (Levetiracetam) 250 Mg Tablet 250 Mg PO BID Neurontin (Gabapentin) 300 Mg Capsule 300 Mg PO TID Jasmeet-128 (Sodium Chloride) 15 Ml Drops 1 Drop OU QID 30 Days Maalox Advanced Suspension (Mag Hydrox/Aluminum Hyd/Simeth) 355 Ml Oral.susp 30 Ml PO PRN Q4HRS PRN Pepcid (Famotidine) 20 Mg Tablet 20 Mg PO BID 30 Days Senokot (Sennosides) 8.6 Mg Tablet 8.6 Mg PO PRN DAILY PRN Miralax (Polyethylene Glycol 3350) 119 Gm Powder 17 Gm PO PRN DAILY PRN Duoneb 0.5-3(2.5) Mg/3 Ml (Albuterol/Ipratropium) 3 Ml Ampul.neb 3 Ml NEB PRN TID PRN Hydroxyzine Pamoate 50 Mg Capsule 50 Mg PO PRN Q6HRS PRN Trazodone Hcl 150 Mg Tablet 150 Mg PO QHS Paroxetine Hcl 30 Mg Tablet 30 Mg PO DAILY Levothyroxine Sodium 75 Mcg Tablet 75 Mcg PO DAILY07 Furosemide 40 Mg Tablet 40 Mg PO DAILY Creon Dr 12,000 Units Capsule (Lipase/Protease/Amylase) 1 Each Capsule.dr 1 Cap PO TIDWMEALS Clonazepam 0.5 Mg Tablet 0.5 Mg PO BID Benztropine Mesylate 0.5 Mg Tablet 0.5 Mg PO BID Abilify (Aripiprazole) 5 Mg Tablet 5 Mg PO DAILY Acetazolamide 250 Mg Tablet 250 Mg PO BID Tylenol With Codeine #3 Tablet (Acetaminophen With Codeine) 1 Each Tablet 1 Tab PO QID I have reviewed the current psychotropics carefully including drug interactions. Risk benefit ratio favors no change other than as noted in my dictated progress note. Diagnosis: Problems: (1) Change in mental status (2) Anxiety disorder (3) Bipolar affective, mixed, sev w/ psych (4) Impulse control disorder (5) Schizoaffective disorder, chronic condition with acute exacerbation ULISSES EPPS MD Aug 10, 2017 19:05
[2017-08-10] MEDS: DIVALPROEX ER 500 MG TAB.ER.24H PO SCH (20:39)
[2017-08-10] MEDS: traZODone 150 MG TABLET. PO SCH (20:39)
[2017-08-10] MEDS: risperiDONE 0.5 MG TABLET. PO SCH (20:39)
[2017-08-10] MEDS: MIRTAZAPINE 7.5 MG TABLET. PO SCH (20:39)
--- NOTE | 2017-08-10 22:14 | NUR ---
Behavior Intervention Response and Plan: BIRP Note: Behavior: Assumed Care of patient, patient located in Patient Room at shift change. Patient exhibited the following behavior Calm, Sleeping, Able to Focus on Task. Brief assessment on rounds of vital signs, medication needs, lab studies, and pain. Treatment plan problems .1&2 Intervention: Patient assessed and the following interventions initiated safety checks 15 Minute Checks Cognitive Assessment , Head to toe Assessment , Medications. Response: After interactions and interventions patient responded in the following manner, Appropriate , Compliant ,Cooperative. Continue to assess behaviors and condition will continue to monitor throughout the shift as needed. Patient educated on ADL's, and hand hygiene. Plan: Continue to monitor Master Treatment Plan for patient's progress toward short term goals of Decreased Anxiety, Improved Mood, intermediate project manager goals to return to previous living setting vs placement. Continue to assess patient for changes in above assessment. Monitor for medication needs, pain, and safety concerns. Hourly rounding performed to ensure safe environment.
[2017-08-11] MEDS: LEVOTHYROXINE 75 MCG TABLET PO SCH (05:56)
[2017-08-11] MEDS: IPRATRPIUM/ALBUTEROL 0.5/2.5MG 3 ML NEBU. NEB SCH ×3 (06:00→21:00)
[2017-08-11 06:03] VITALS: BP 100/82
[2017-08-11] MEDS: GABAPENTIN 300 MG CAPSULE. PO SCH ×3 (08:41→20:05)
[2017-08-11] MEDS: FAMOTIDINE 20 MG TABLET PO SCH ×2 (08:41→20:05)
[2017-08-11] MEDS: LIPASE/PROTEAS/AMYLAS 10/34/55 CAPSULE.DR. PO SCH ×3 (08:41→17:45)
[2017-08-11] MEDS: levETIRAcetam 250 MG TABLET PO SCH ×2 (08:41→20:05)
[2017-08-11] MEDS: FUROSEMIDE 20 MG TABLET PO SCH (08:42)
[2017-08-11] MEDS: LACTOBACILLUS RHAMNOSUS GG 1 CAPSULE. PO SCH ×2 (08:42→20:04)
[2017-08-11] MEDS: SODIUM CHLORIDE 5% OPHTH SOLUTION 15ML BOTTLE. OU SCH ×4 (08:47→20:04)
[2017-08-11] MEDS: NYSTATIN TOPICAL POWDER 15GM BOTTLE. TP SCH ×2 (08:47→20:06)
[2017-08-11] MEDS: MELOXICAM 15 MG TABLET. PO SCH (08:48)
--- NOTE | 2017-08-11 09:39 | PN ---
DATE: 08/09/2017 PSYCHIATRIC PROGRESS NOTE This is a late entry 08/09/2017, covers elements not covered in my initial note 08/09/2017. SUBJECTIVE: I met with the patient the evening of 08/09/2017. Overall, the patient is less confused and more appropriate, seemed to remember what she had for supper even though I met with her quite a bit after she had finished the supper. Does complain of wrist pain, will defer to Dr. White. REVIEW OF SYSTEMS: No CV, , pulmonary, eye, ENT system symptoms on review. MENTAL STATUS EXAM: Oriented to herself and situation. Speech coherent, abstraction fair, computation somewhat impaired. Memory is impaired. No active psychotic symptoms, suicidal or homicidal ideation. Attention span short, language function intact. IMPRESSION: Schizoaffective disorder, bipolar type, mixed with psychotic features; major neurocognitive disorder, Alzheimer, vascular with delusion, depression. PLAN: Continue psychotropics mentioned in my initial note. Adjust further as clinically indicated. MAN Garret EPPS MD DR: KEMAR/rashaun JOB#: [id number] / [id number]
--- NOTE | 2017-08-11 09:43 | NUR ---
Behavior Intervention Response and Plan: BIRP Note: Behavior: Assumed Care of patient, patient located in Dining Room at shift change. Patient exhibited the following behavior Calm, Disorganized, Cooperative. Brief assessment on rounds of vital signs, medication needs, lab studies, and pain. Treatment plan problems 1-2. Intervention: Patient assessed and the following interventions initiated safety checks 15 Minute Checks Cognitive Assessment , Head to toe Assessment , Medications. Response: After interactions and interventions patient responded in the following manner, Disorganized , Calm ,Interactive. Continue to assess behaviors and condition will continue to monitor throughout the shift as needed. Patient educated on ADL's, and hand hygiene. Plan: Continue to monitor Master Treatment Plan for patient's progress toward short term goals of Improved Mood, Decreased Anxiety, terminal gauger supervisor goals to return to previous living setting vs placement. Continue to assess patient for changes in above assessment. Monitor for medication needs, pain, and safety concerns. Hourly rounding performed to ensure safe environment.
--- NOTE | 2017-08-11 15:00 | NUR ---
WEEKLY THERAPEUTIC RECREATION NOTE Date of Admission: 07/23/2017 Date of AT Assessment: 07/26/2017 Goal aimed: to increase sensory stimulation Initial goal: Pt. will participate in all individual and group sessions focused on sensory stimulation. Weekly progress towards goal: on track Group participation level: minimal Behaviors observed: sleeps often, more engagement this week, more alertness. Social with others and easier to work with Plan: no changes to goal
[2017-08-11 15:46] VITALS: BP 91/53
--- NOTE | 2017-08-11 19:42 | PDOC ---
Exam Note: Michael Note: Please also refer to the separate dictated note~for this date of service dictated separately.~Patient seen individually. Discussed the patient with Nursing staff reviewed the chart.~Reviewed interim history and current functioning. Reviewed vital signs,~Labs/ Radiology~and current medications noted below. Continue current treatment with the changes noted in the dictated addendum note Assessment: Vital Signs: Vital Signs Date Time Temp Pulse Resp B/P (MAP) Pulse Ox O2 Delivery O2 Flow Rate FiO2 08/11/17 15:46 98.0 82 16 91/53 (66) 96 08/11/17 11:56 Room Air I&O Intake and Output 08/11/17 07:00 Intake Total 1680 ml Balance 1680 ml Intake Oral 1680 ml # Voids 2 Current Medications: Meds: Current Medications Sodium Chloride 1,000 ml @ 1,000 mls/hr Q1H IV Last administered on 07/23/17 18:00; Start 07/23/17 at 18:00; Stop 07/23/17 at 18:59; Status DC Potassium Chloride (KCl Oral Soln) 40 meq 1X STAT PO Last administered on at 20:06; Start 07/23/17 at 19:45; Stop 07/23/17 at 19:48; Status DC Cephalexin HCl (Keflex) 500 mg 1X ONCE PO Last administered on 07/23/17at 20:10 ; Start 07/23/17 at 20:15; Stop 07/23/17 at 20:16; Status DC Cephalexin HCl (Keflex) 500 mg TID PO Last administered on 07/25/17at 19:45; Start 07/24/17 at 09:00; Stop 07/26/17 at 18:23; Status DC Aripiprazole (Abilify) 5 mg DAILY PO Last administered on 07/26/17at 08:07; Start 07/24/17 at 09:00; Stop 07/26/17 at 19:19; Status DC Benztropine Mesylate (Cogentin) 0.5 mg BID PO Last administered on 07/25/17at 19 :45; Start 07/23/17 at 21:00; Stop 07/25/17 at 21:10; Status DC Clonazepam (KlonoPIN) 0.5 mg BID PO Last administered on 07/28/17at 08:51; Start 07/23/17 at 21:00; Stop 07/28/17 at 18:19; Status DC Trazodone HCl (Desyrel) 150 mg QHS PO Last administered on 08/10/17at 20:39; Start 07/23/17 at 21:00 Hydroxyzine HCl (Atarax) 50 mg PRN Q6HRS PRN PO ANXIETY/AGITATION Last administered on 08/05/17 21:20; Start 07/23/17 at 21:00 Acetaminophen/ Codeine Phosphate (Tylenol #3) 1 tab QID PO Last administered on 07/31/17 13:09; Start 07/23/17 at 21:00; Stop 07/31/17 at 18:23; Status DC Acetazolamide (Diamox) 250 mg BID PO ; Start 07/23/17 at 21:00; Stop 07/23/17 at 21:23; Status DC Famotidine (Pepcid) 20 mg BID PO Last administered on 08/11/17 08:41; Start at 21:00 Furosemide (Lasix) 40 mg DAILY PO Last administered on 07/29/17 09:07; Start 07/24/17 at 09:00; Stop 07/29/17 at 18:49; Status DC Gabapentin (Neurontin) 300 mg TID PO Last administered on 08/11/17 13:50; Start 07/23/17 at 21:00 Albuterol/ Ipratropium (Duoneb) 3 ml PRN TID PRN NEB SHORTNESS OF BREATH; Start 07/23/17 at 21:00; Stop 08/08/17 at 14:59; Status DC Levetiracetam (Keppra) 250 mg BID PO Last administered on 08/11/17 08:41; Start 07/23/17 at 21:00 Levothyroxine Sodium (Synthroid) 75 mcg DAILY07 PO Last administered on 05:56; Start 07/24/17 at 07:00 Nystatin (Mycostatin) 1 nery PRN BID PRN TP RASH Last administered on 08/04/17 07:35; Start 07/23/17 at 21:00 Polyethylene Glycol (miraLAX) 17 gm PRN DAILY PRN PO CONSTIPATION Last administered on 07/24/17 12:44; Start 07/24/17 at 09:00 Sennosides (Senna) 8.6 mg PRN DAILY PRN PO CONSTIPATION Last administered on 12:44; Start 07/23/17 at 21:00 Amylase/Lipase/ Protease (Zenpep 10,000) 1 cap TIDWMEALS PO Last administered on 08/11/17 17:45; Start 07/24/17 at 08:00 Al Hydroxide/Mg Hydroxide (Mylanta Plus Xs) 30 ml PRN Q4HRS PRN PO DYSPEPSIA; Start 07/23/17 at 21:15 Sodium Chloride (Jasmeet-5) 1 drop QID OU Last administered on 08/11/17 17:45; Start 07/23/17 at 21:00 Acetazolamide (Diamox) 250 mg BID PO Last administered on 07/29/17 09:11; Start 07/24/17 at 09:00; Stop 07/29/17 at 18:49; Status DC Lactobacillus Rhamnosus (Culturelle) 1 cap BID PO Last administered on at 08:42; Start 07/24/17 at 21:00 Benztropine Mesylate (Cogentin) 0.5 mg DAILY PO Last administered on 08/04/17 08:26; Start 07/26/17 at 09:00; Stop 08/04/17 at 18:47; Status DC Divalproex Sodium (Depakote Er) 500 mg QHS PO Last administered on 07/28/17at 19 :27; Start 07/25/17 at 21:30; Stop 07/29/17 at 19:19; Status DC Risperidone (RisperDAL) 0.5 mg HS PO Last administered on 08/03/17 19:05; Start 07/26/17 at 21:00; Stop 08/04/17 at 18:47; Status DC Clonazepam (KlonoPIN) 0.25 mg BID PO Last administered on 08/01/17 07:45; Start 07/28/17 at 21:00; Stop 08/01/17 at 20:59; Status DC Clonazepam (KlonoPIN) 0.25 mg DAILY PO Last administered on 08/03/17at 08:40; Start 08/01/17 at 09:00; Stop 08/04/17 at 08:59; Status DC Divalproex Sodium (Depakote Er) 1,000 mg QHS PO Last administered on 08/10/17 20:39; Start 07/29/17 at 21:00 Acetaminophen/ Codeine Phosphate (Tylenol #3) 1 tab PRN QID PRN PO PAIN Last administered on 08/09/17 16:29; Start 07/31/17 at 18:30 Mirtazapine (Remeron) 7.5 mg QHS PO Last administered on 08/10/17 20:39; Start 08/03/17 at 21:00 Nystatin (Nystop) 1 nery BID TP Last administered on 08/11/17 08:47; Start at 21:00 Risperidone (RisperDAL) 2.75 mg HS PO ; Start 08/04/17 at 21:00; Stop 08/04/17 at 21:00; Status DC Risperidone (RisperDAL) 0.75 mg HS PO Last administered on 08/10/17 20:39; Start 08/04/17 at 21:00; Stop 08/11/17 at 18:39; Status DC Furosemide (Lasix) 10 mg DAILY PO Last administered on 08/11/17 08:42; Start 08/06/17 at 14:00 Albuterol/ Ipratropium (Duoneb) 3 ml TID NEB Last administered on 08/11/17 11: 55; Start 08/08/17 at 15:00 Meloxicam (Mobic) 15 mg DAILY PO Last administered on 08/11/17 08:48; Start at 09:00 Risperidone (RisperDAL) 1 mg HS PO ; Start 08/11/17 at 21:00 Active Scripts Active Reported Nystatin 15 Gm Oint...g. 1 Nery TP PRN BID PRN Keppra (Levetiracetam) 250 Mg Tablet 250 Mg PO BID Neurontin (Gabapentin) 300 Mg Capsule 300 Mg PO TID Jasmeet-128 (Sodium Chloride) 15 Ml Drops 1 Drop OU QID 30 Days Maalox Advanced Suspension (Mag Hydrox/Aluminum Hyd/Simeth) 355 Ml Oral.susp 30 Ml PO PRN Q4HRS PRN Pepcid (Famotidine) 20 Mg Tablet 20 Mg PO BID 30 Days Senokot (Sennosides) 8.6 Mg Tablet 8.6 Mg PO PRN DAILY PRN Miralax (Polyethylene Glycol 3350) 119 Gm Powder 17 Gm PO PRN DAILY PRN Duoneb 0.5-3(2.5) Mg/3 Ml (Albuterol/Ipratropium) 3 Ml Ampul.neb 3 Ml NEB PRN TID PRN Hydroxyzine Pamoate 50 Mg Capsule 50 Mg PO PRN Q6HRS PRN Trazodone Hcl 150 Mg Tablet 150 Mg PO QHS Paroxetine Hcl 30 Mg Tablet 30 Mg PO DAILY Levothyroxine Sodium 75 Mcg Tablet 75 Mcg PO DAILY07 Furosemide 40 Mg Tablet 40 Mg PO DAILY Creon Dr 12,000 Units Capsule (Lipase/Protease/Amylase) 1 Each Capsule.dr 1 Cap PO TIDWMEALS Clonazepam 0.5 Mg Tablet 0.5 Mg PO BID Benztropine Mesylate 0.5 Mg Tablet 0.5 Mg PO BID Abilify (Aripiprazole) 5 Mg Tablet 5 Mg PO DAILY Acetazolamide 250 Mg Tablet 250 Mg PO BID Tylenol With Codeine #3 Tablet (Acetaminophen With Codeine) 1 Each Tablet 1 Tab PO QID I have reviewed the current psychotropics carefully including drug interactions. Risk benefit ratio favors no change other than as noted in my dictated progress note. Diagnosis: Problems: (1) Change in mental status (2) Anxiety disorder (3) Bipolar affective, mixed, sev w/ psych (4) Impulse control disorder (5) Schizoaffective disorder, chronic condition with acute exacerbation ULISSES EPPS MD Aug 11, 2017 19:42
[2017-08-11] MEDS: MIRTAZAPINE 7.5 MG TABLET. PO SCH (20:05)
[2017-08-11] MEDS: DIVALPROEX ER 500 MG TAB.ER.24H PO SCH (20:05)
[2017-08-11] MEDS: traZODone 150 MG TABLET. PO SCH (20:05)
[2017-08-11] MEDS: risperiDONE 1 MG TABLET. PO SCH (20:07)
--- NOTE | 2017-08-11 21:17 | NUR ---
Behavior Intervention Response and Plan: BIRP Note: Behavior: Assumed Care of patient, patient located in Day Room at shift change. Patient exhibited the following behavior Calm, Able to Focus on Task, Withdrawn. Brief assessment on rounds of vital signs, medication needs, lab studies, and pain. Treatment plan problems .1&2 Intervention: Patient assessed and the following interventions initiated safety checks 15 Minute Checks Cognitive Assessment , Head to toe Assessment , Medications. Response: After interactions and interventions patient responded in the following manner, Compliant , Cooperative ,Appropriate. Continue to assess behaviors and condition will continue to monitor throughout the shift as needed. Patient educated on ADL's, and hand hygiene. 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 Continue to assess patient for changes in above assessment. Monitor for medication needs, pain, and safety concerns. Hourly rounding performed to ensure safe environment.
--- NOTE | 2017-08-12 03:26 | PN ---
DATE: 08/10/2017 This is a late entry of 08/10/2017 covers elements not covered in my initial note of 08/10/2017. SUBJECTIVE: I met with the patient evening of 08/10/2017. The patient still complains of right wrist pain. X-ray is negative, has been repeated, but cognitively looks clear, though still oriented to herself, but able to engage in a conversation with less loose associations. REVIEW OF SYSTEMS: Other than wrist pain, no CV, , pulmonary, eye system symptoms on review. MENTAL STATUS EXAM: Oriented to herself. Insight, judgment, recent and remote memory, attention, concentration, fund of knowledge poor, consistent with her diagnosis mentioned in my initial note. IMPRESSION: Schizoaffective disorder, bipolar type, major neurocognitive disorder, Alzheimer, vascular with depression, delusions. PLAN: Taper the Klonopin till it stock. Maintain Risperdal, Keppra, trazodone, Depakote. Valproic acid level therapeutic at 77. May need to increase Risperdal further. MAN Garret EPPS MD DR: KEMAR/rashaun JOB#: [id number] / [id number]
[2017-08-12 05:30] VITALS: BP 99/52
[2017-08-12] MEDS: LEVOTHYROXINE 75 MCG TABLET PO SCH (05:31)
[2017-08-12] MEDS: IPRATRPIUM/ALBUTEROL 0.5/2.5MG 3 ML NEBU. NEB SCH ×3 (06:06→22:54)
[2017-08-12] MEDS: GABAPENTIN 300 MG CAPSULE. PO SCH ×3 (08:26→20:28)
[2017-08-12] MEDS: levETIRAcetam 250 MG TABLET PO SCH ×2 (08:26→20:29)
[2017-08-12] MEDS: FAMOTIDINE 20 MG TABLET PO SCH ×2 (08:26→20:29)
[2017-08-12] MEDS: LACTOBACILLUS RHAMNOSUS GG 1 CAPSULE. PO SCH ×2 (08:26→20:29)
[2017-08-12] MEDS: LIPASE/PROTEAS/AMYLAS 10/34/55 CAPSULE.DR. PO SCH ×3 (08:26→17:34)
[2017-08-12] MEDS: MELOXICAM 15 MG TABLET. PO SCH (08:27)
[2017-08-12] MEDS: FUROSEMIDE 20 MG TABLET PO SCH (08:27)
[2017-08-12] MEDS: SODIUM CHLORIDE 5% OPHTH SOLUTION 15ML BOTTLE. OU SCH ×4 (09:04→20:29)
[2017-08-12] MEDS: NYSTATIN TOPICAL POWDER 15GM BOTTLE. TP SCH ×2 (09:04→20:29)
--- NOTE | 2017-08-12 10:28 | NUR ---
Behavior Intervention Response and Plan: BIRP Note: Behavior: Assumed Care of patient, patient located in Patient Room at shift change. Patient exhibited the following behavior Calm, Withdrawn, Sleeping. Brief assessment on rounds of vital signs, medication needs, lab studies, and pain. Treatment plan problems 1 and 2. Intervention: Patient assessed and the following interventions initiated safety checks 15 Minute Checks Cognitive Assessment , Head to toe Assessment , Medications. Response: After interactions and interventions patient responded in the following manner, Calm , Compliant ,Cooperative. Continue to assess behaviors and condition will continue to monitor throughout the shift as needed. Patient educated on ADL's, and hand hygiene. 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 Continue to assess patient for changes in above assessment. Monitor for medication needs, pain, and safety concerns. Hourly rounding performed to ensure safe environment.
[2017-08-12 15:35] VITALS: BP 99/54
--- NOTE | 2017-08-12 19:58 | PDOC ---
Exam Note: Michael Note: Please also refer to the separate dictated note~for this date of service dictated separately.~Patient seen individually. Discussed the patient with Nursing staff reviewed the chart.~Reviewed interim history and current functioning. Reviewed vital signs,~Labs/ Radiology~and current medications noted below. Continue current treatment with the changes noted in the dictated addendum note Assessment: Vital Signs: Vital Signs Date Time Temp Pulse Resp B/P (MAP) Pulse Ox O2 Delivery O2 Flow Rate FiO2 08/12/17 15:35 98.9 76 16 99/54 (69) 99 Room Air I&O Intake and Output 08/12/17 07:00 Intake Total 1080 ml Balance 1080 ml Intake Oral 1080 ml Current Medications: Meds: Current Medications Sodium Chloride 1,000 ml @ 1,000 mls/hr Q1H IV Last administered on 07/23/17at 18:00; Start 07/23/17 at 18:00; Stop 07/23/17 at 18:59; Status DC Potassium Chloride (KCl Oral Soln) 40 meq 1X STAT PO Last administered on at 20:06; Start 07/23/17 at 19:45; Stop 07/23/17 at 19:48; Status DC Cephalexin HCl (Keflex) 500 mg 1X ONCE PO Last administered on 07/23/17at 20:10 ; Start 07/23/17 at 20:15; Stop 07/23/17 at 20:16; Status DC Cephalexin HCl (Keflex) 500 mg TID PO Last administered on 07/25/17at 19:45; Start 07/24/17 at 09:00; Stop 07/26/17 at 18:23; Status DC Aripiprazole (Abilify) 5 mg DAILY PO Last administered on 07/26/17at 08:07; Start 07/24/17 at 09:00; Stop 07/26/17 at 19:19; Status DC Benztropine Mesylate (Cogentin) 0.5 mg BID PO Last administered on 07/25/17at 19 :45; Start 07/23/17 at 21:00; Stop 07/25/17 at 21:10; Status DC Clonazepam (KlonoPIN) 0.5 mg BID PO Last administered on 07/28/17at 08:51; Start 07/23/17 at 21:00; Stop 07/28/17 at 18:19; Status DC Trazodone HCl (Desyrel) 150 mg QHS PO Last administered on 08/11/17at 20:05; Start 07/23/17 at 21:00 Hydroxyzine HCl (Atarax) 50 mg PRN Q6HRS PRN PO ANXIETY/AGITATION Last administered on 08/05/17at 21:20; Start 07/23/17 at 21:00 Acetaminophen/ Codeine Phosphate (Tylenol #3) 1 tab QID PO Last administered on 07/31/17at 13:09; Start 07/23/17 at 21:00; Stop 07/31/17 at 18:23; Status DC Acetazolamide (Diamox) 250 mg BID PO ; Start 07/23/17 at 21:00; Stop 07/23/17 at 21:23; Status DC Famotidine (Pepcid) 20 mg BID PO Last administered on 08/12/17 08:26; Start 07/23/17 at 21:00 Furosemide (Lasix) 40 mg DAILY PO Last administered on 07/29/17at 09:07; Start 07/24/17 at 09:00; Stop 07/29/17 at 18:49; Status DC Gabapentin (Neurontin) 300 mg TID PO Last administered on 08/12/17 12:57; Start 07/23/17 at 21:00 Albuterol/ Ipratropium (Duoneb) 3 ml PRN TID PRN NEB SHORTNESS OF BREATH; Start 07/23/17 at 21:00; Stop 08/08/17 at 14:59; Status DC Levetiracetam (Keppra) 250 mg BID PO Last administered on 08/12/17 08:26; Start 07/23/17 at 21:00 Levothyroxine Sodium (Synthroid) 75 mcg DAILY07 PO Last administered on 05:31; Start 07/24/17 at 07:00 Nystatin (Mycostatin) 1 nery PRN BID PRN TP RASH Last administered on 08/04/17at 07:35; Start 07/23/17 at 21:00 Polyethylene Glycol (miraLAX) 17 gm PRN DAILY PRN PO CONSTIPATION Last administered on 07/24/17at 12:44; Start 07/24/17 at 09:00 Sennosides (Senna) 8.6 mg PRN DAILY PRN PO CONSTIPATION Last administered on 12:44; Start 07/23/17 at 21:00 Amylase/Lipase/ Protease (Zenpep 10,000) 1 cap TIDWMEALS PO Last administered on 08/12/17 17:34; Start 07/24/17 at 08:00 Al Hydroxide/Mg Hydroxide (Mylanta Plus Xs) 30 ml PRN Q4HRS PRN PO DYSPEPSIA; Start 07/23/17 at 21:15 Sodium Chloride (Jasmeet-5) 1 drop QID OU Last administered on 08/12/17 17:35; Start 07/23/17 at 21:00 Acetazolamide (Diamox) 250 mg BID PO Last administered on 07/29/17 09:11; Start 07/24/17 at 09:00; Stop 07/29/17 at 18:49; Status DC Lactobacillus Rhamnosus (Culturelle) 1 cap BID PO Last administered on 08:26; Start 07/24/17 at 21:00 Benztropine Mesylate (Cogentin) 0.5 mg DAILY PO Last administered on 08/04/17 08:26; Start 07/26/17 at 09:00; Stop 08/04/17 at 18:47; Status DC Divalproex Sodium (Depakote Er) 500 mg QHS PO Last administered on 07/28/17at 19 :27; Start 07/25/17 at 21:30; Stop 07/29/17 at 19:19; Status DC Risperidone (RisperDAL) 0.5 mg HS PO Last administered on 08/03/17at 19:05; Start 07/26/17 at 21:00; Stop 08/04/17 at 18:47; Status DC Clonazepam (KlonoPIN) 0.25 mg BID PO Last administered on 08/01/17at 07:45; Start 07/28/17 at 21:00; Stop 08/01/17 at 20:59; Status DC Clonazepam (KlonoPIN) 0.25 mg DAILY PO Last administered on 08/03/17at 08:40; Start 08/01/17 at 09:00; Stop 08/04/17 at 08:59; Status DC Divalproex Sodium (Depakote Er) 1,000 mg QHS PO Last administered on 08/11/17 20:05; Start 07/29/17 at 21:00 Acetaminophen/ Codeine Phosphate (Tylenol #3) 1 tab PRN QID PRN PO PAIN Last administered on 08/09/17 16:29; Start 07/31/17 at 18:30 Mirtazapine (Remeron) 7.5 mg QHS PO Last administered on 08/11/17at 20:05; Start 08/03/17 at 21:00 Nystatin (Nystop) 1 nery BID TP Last administered on 08/12/17 09:04; Start 08/04 at 21:00 Risperidone (RisperDAL) 2.75 mg HS PO ; Start 08/04/17 at 21:00; Stop 08/04/17 at 21:00; Status DC Risperidone (RisperDAL) 0.75 mg HS PO Last administered on 08/10/17 20:39; Start 08/04/17 at 21:00; Stop 08/11/17 at 18:39; Status DC Furosemide (Lasix) 10 mg DAILY PO Last administered on 08/12/17 08:27; Start at 14:00 Albuterol/ Ipratropium (Duoneb) 3 ml TID NEB Last administered on 08/12/17 09: 45; Start 08/08/17 at 15:00 Meloxicam (Mobic) 15 mg DAILY PO Last administered on 08/12/17 08:27; Start at 09:00 Risperidone (RisperDAL) 1 mg HS PO Last administered on 08/11/17at 20:07; Start 08/11/17 at 21:00 Active Scripts Active Reported Nystatin 15 Gm Oint...g. 1 Nery TP PRN BID PRN Keppra (Levetiracetam) 250 Mg Tablet 250 Mg PO BID Neurontin (Gabapentin) 300 Mg Capsule 300 Mg PO TID Jasmeet-128 (Sodium Chloride) 15 Ml Drops 1 Drop OU QID 30 Days Maalox Advanced Suspension (Mag Hydrox/Aluminum Hyd/Simeth) 355 Ml Oral.susp 30 Ml PO PRN Q4HRS PRN Pepcid (Famotidine) 20 Mg Tablet 20 Mg PO BID 30 Days Senokot (Sennosides) 8.6 Mg Tablet 8.6 Mg PO PRN DAILY PRN Miralax (Polyethylene Glycol 3350) 119 Gm Powder 17 Gm PO PRN DAILY PRN Duoneb 0.5-3(2.5) Mg/3 Ml (Albuterol/Ipratropium) 3 Ml Ampul.neb 3 Ml NEB PRN TID PRN Hydroxyzine Pamoate 50 Mg Capsule 50 Mg PO PRN Q6HRS PRN Trazodone Hcl 150 Mg Tablet 150 Mg PO QHS Paroxetine Hcl 30 Mg Tablet 30 Mg PO DAILY Levothyroxine Sodium 75 Mcg Tablet 75 Mcg PO DAILY07 Furosemide 40 Mg Tablet 40 Mg PO DAILY Creon 12,000 Units Capsule (Lipase/Protease/Amylase) 1 Each Capsule.dr 1 Cap PO TIDWMEALS Clonazepam 0.5 Mg Tablet 0.5 Mg PO BID Benztropine Mesylate 0.5 Mg Tablet 0.5 Mg PO BID Abilify (Aripiprazole) 5 Mg Tablet 5 Mg PO DAILY Acetazolamide 250 Mg Tablet 250 Mg PO BID Tylenol With Codeine #3 Tablet (Acetaminophen With Codeine) 1 Each Tablet 1 Tab PO QID I have reviewed the current psychotropics carefully including drug interactions. Risk benefit ratio favors no change other than as noted in my dictated progress note. Diagnosis: Problems: (1) Change in mental status (2) Anxiety disorder (3) Bipolar affective, mixed, sev w/ psych (4) Impulse control disorder (5) Schizoaffective disorder, chronic condition with acute exacerbation ULISSES EPPS MD Aug 12, 2017 19:58
[2017-08-12] MEDS: DIVALPROEX ER 500 MG TAB.ER.24H PO SCH (20:28)
[2017-08-12] MEDS: traZODone 150 MG TABLET. PO SCH (20:28)
[2017-08-12] MEDS: MIRTAZAPINE 7.5 MG TABLET. PO SCH (20:28)
[2017-08-12] MEDS: risperiDONE 1 MG TABLET. PO SCH (20:29)
--- NOTE | 2017-08-13 00:12 | NUR ---
Behavior Intervention Response and Plan: BIRP Note: Behavior: Assumed Care of patient, patient located in Hallway at shift change. Patient exhibited the following behavior Calm, Wandering, Compliant. Brief assessment on rounds of vital signs, medication needs, lab studies, and pain. Treatment plan problems Altered thought process and Fall Risk. Intervention: Patient assessed and the following interventions initiated safety checks 15 Minute Checks Cognitive Assessment , Head to toe Assessment , Medications. Response: After interactions and interventions patient responded in the following manner, Calm , Compliant ,Cooperative. Continue to assess behaviors and condition will continue to monitor throughout the shift as needed. Patient educated on ADL's, and hand hygiene. Plan: Continue to monitor Master Treatment Plan for patient's progress toward short term goals of Decreased Anxiety, Improved Mood, retirement goals to return to previous living setting vs placement. Continue to assess patient for changes in above assessment. Monitor for medication needs, pain, and safety concerns. Hourly rounding performed to ensure safe environment.
[2017-08-13] MEDS ORDERED: DIVA500T4 PO (00:27)
[2017-08-13] MEDS ORDERED: FURO20TA3 PO (00:28)
[2017-08-13] MEDS ORDERED: LACT1CAP21 PO (00:31)
[2017-08-13] MEDS ORDERED: MELO15TA6 PO (00:32)
[2017-08-13] MEDS ORDERED: MIRT7.5T8 PO (00:33)
[2017-08-13] MEDS ORDERED: NYST60PO TP (00:34)
[2017-08-13] MEDS ORDERED: HYDR50TA PO (00:37)
[2017-08-13] MEDS ORDERED: RISP1TAB43 PO (00:38)
[2017-08-13] MEDS: IPRATRPIUM/ALBUTEROL 0.5/2.5MG 3 ML NEBU. NEB SCH (05:50)
[2017-08-13] MEDS: LEVOTHYROXINE 75 MCG TABLET PO SCH (06:04)
[2017-08-13 06:40] VITALS: BP 102/57
--- NOTE | 2017-08-13 07:50 | NUR ---
[facility] Social Work Discharge Planning Form Patient Name EDGARD EPSTEIN Admit Date: 07/23/17 DISCHARGE PLAN Discharge Destination: [place] Transportation: 1300 Special Instructions/Notes: DISCHARGE TO FACILITY Facility: [facility] Address: [address] PCP: at facility Psychiatrist: at facility Psychiatrist/Mental Health Follow Up at facility 7-10 days Primary Care Follow Up at facility 7-10 days
[2017-08-13] MEDS: FUROSEMIDE 20 MG TABLET PO SCH (09:08)
[2017-08-13] MEDS: LIPASE/PROTEAS/AMYLAS 10/34/55 CAPSULE.DR. PO SCH ×2 (09:08→13:01)
[2017-08-13] MEDS: MELOXICAM 15 MG TABLET. PO SCH (09:08)
[2017-08-13] MEDS: GABAPENTIN 300 MG CAPSULE. PO SCH ×2 (09:08→13:01)
[2017-08-13] MEDS: levETIRAcetam 250 MG TABLET PO SCH (09:08)
[2017-08-13] MEDS: FAMOTIDINE 20 MG TABLET PO SCH (09:08)
[2017-08-13] MEDS: LACTOBACILLUS RHAMNOSUS GG 1 CAPSULE. PO SCH (09:08)
[2017-08-13] MEDS: SODIUM CHLORIDE 5% OPHTH SOLUTION 15ML BOTTLE. OU SCH ×2 (09:09→13:01)
[2017-08-13] MEDS: NYSTATIN TOPICAL POWDER 15GM BOTTLE. TP SCH (09:09)
--- NOTE | 2017-08-13 13:00 | NUR ---
Behavior Intervention Response and Plan: BIRP Note: Behavior: Assumed Care of patient, patient located in Day Room at shift change. Patient exhibited the following behavior Calm, Interactive, Compliant. Brief assessment on rounds of vital signs, medication needs, lab studies, and pain. Treatment plan problems alteration in thought process and fall risk. Intervention: Patient assessed and the following interventions initiated safety checks 15 Minute Checks Head to toe Assessment , Cognitive Assessment , Medications. Response: After interactions and interventions patient responded in the following manner, Calm , Compliant ,Cooperative. Continue to assess behaviors and condition will continue to monitor throughout the shift as needed. Patient educated on ADL's, and hand hygiene. 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 Continue to assess patient for changes in above assessment. Monitor for medication needs, pain, and safety concerns. Hourly rounding performed to ensure safe environment.
--- NOTE | 2017-08-13 14:30 | NUR ---
Transition Record was faxed to follow-up provider with the following elements: Reason for admission, procedures, tests, principal diagnosis, pending studies, patient instructions, 04/01 contact information for unit, phone number to obtain pending test results, plan for follow-up care, physician follow-up, advanced directive information, and medication list with dose, duration and instructions. This information was included in the following documents: History and physical, lab results, study results, progress notes, social work planning form, DC instruction form, patient visit summary, and medication reconciliation form. Date & time record faxed:08/13/17 @ 11:15 Record faxed to:Noble Brandt [phone] Record discussed with/ report given to: Penny SIMON [phone]
--- NOTE | 2017-08-13 18:34 | PDOC ---
Exam Note: Michael Note: Please also refer to the separate dictated note~for this date of service dictated separately.~Patient seen individually. Discussed the patient with Nursing staff reviewed the chart.~Reviewed interim history and current functioning. Reviewed vital signs,~Labs/ Radiology~and current medications noted below. Continue current treatment with the changes noted in the dictated addendum note Assessment: Vital Signs: Vital Signs Date Time Temp Pulse Resp B/P (MAP) Pulse Ox O2 Delivery O2 Flow Rate FiO2 08/13/17 06:40 97.6 71 16 102/57 (72) 93 08/13/17 05:13 Room Air I&O Intake and Output 08/13/17 07:00 Intake Total 960 ml Balance 960 ml Intake Oral 960 ml Current Medications: Meds: Current Medications Sodium Chloride 1,000 ml @ 1,000 mls/hr Q1H IV Last administered on 07/23/17 18:00; Start 07/23/17 at 18:00; Stop 07/23/17 at 18:59; Status DC Potassium Chloride (KCl Oral Soln) 40 meq 1X STAT PO Last administered on at 20:06; Start 07/23/17 at 19:45; Stop 07/23/17 at 19:48; Status DC Cephalexin HCl (Keflex) 500 mg 1X ONCE PO Last administered on 07/23/17at 20:10 ; Start 07/23/17 at 20:15; Stop 07/23/17 at 20:16; Status DC Cephalexin HCl (Keflex) 500 mg TID PO Last administered on 07/25/17at 19:45; Start 07/24/17 at 09:00; Stop 07/26/17 at 18:23; Status DC Aripiprazole (Abilify) 5 mg DAILY PO Last administered on 07/26/17at 08:07; Start 07/24/17 at 09:00; Stop 07/26/17 at 19:19; Status DC Benztropine Mesylate (Cogentin) 0.5 mg BID PO Last administered on 07/25/17at 19 :45; Start 07/23/17 at 21:00; Stop 07/25/17 at 21:10; Status DC Clonazepam (KlonoPIN) 0.5 mg BID PO Last administered on 07/28/17at 08:51; Start 07/23/17 at 21:00; Stop 07/28/17 at 18:19; Status DC Trazodone HCl (Desyrel) 150 mg QHS PO Last administered on 08/12/17at 20:28; Start 07/23/17 at 21:00; Stop 08/13/17 at 14:36; Status DC Hydroxyzine HCl (Atarax) 50 mg PRN Q6HRS PRN PO ANXIETY/AGITATION Last administered on 08/05/17at 21:20; Start 07/23/17 at 21:00; Stop 08/13/17 at 14:36; Status DC Acetaminophen/ Codeine Phosphate (Tylenol #3) 1 tab QID PO Last administered on 07/31/17at 13:09; Start 07/23/17 at 21:00; Stop 07/31/17 at 18:23; Status DC Acetazolamide (Diamox) 250 mg BID PO ; Start 07/23/17 at 21:00; Stop 07/23/17 at 21:23; Status DC Famotidine (Pepcid) 20 mg BID PO Last administered on 08/13/17 09:08; Start 07/23/17 at 21:00; Stop 08/13/17 at 14:36; Status DC Furosemide (Lasix) 40 mg DAILY PO Last administered on 07/29/17at 09:07; Start 07/24/17 at 09:00; Stop 07/29/17 at 18:49; Status DC Gabapentin (Neurontin) 300 mg TID PO Last administered on 08/13/17at 13:01; Start 07/23/17 at 21:00; Stop 08/13/17 at 14:36; Status DC Albuterol/ Ipratropium (Duoneb) 3 ml PRN TID PRN NEB SHORTNESS OF BREATH; Start 07/23/17 at 21:00; Stop 08/08/17 at 14:59; Status DC Levetiracetam (Keppra) 250 mg BID PO Last administered on 08/13/17 09:08; Start 07/23/17 at 21:00; Stop 08/13/17 at 14:36; Status DC Levothyroxine Sodium (Synthroid) 75 mcg DAILY07 PO Last administered on at 06:04; Start 07/24/17 at 07:00; Stop 08/13/17 at 14:36; Status DC Nystatin (Mycostatin) 1 nery PRN BID PRN TP RASH Last administered on 08/04/17at 07:35; Start 07/23/17 at 21:00; Stop 08/13/17 at 14:36; Status DC Polyethylene Glycol (miraLAX) 17 gm PRN DAILY PRN PO CONSTIPATION Last administered on 07/24/17at 12:44; Start 07/24/17 at 09:00; Stop 08/13/17 at 14:36 ; Status DC Sennosides (Senna) 8.6 mg PRN DAILY PRN PO CONSTIPATION Last administered on 03/31at 12:44; Start 07/23/17 at 21:00; Stop 08/13/17 at 14:36; Status DC Amylase/Lipase/ Protease (Zenpep 10,000) 1 cap TIDWMEALS PO Last administered on 08/13/17at 13:01; Start 07/24/17 at 08:00; Stop 08/13/17 at 14:36; Status DC Al Hydroxide/Mg Hydroxide (Mylanta Plus Xs) 30 ml PRN Q4HRS PRN PO DYSPEPSIA; Start 07/23/17 at 21:15; Stop 08/13/17 at 14:36; Status DC Sodium Chloride (Jasmeet-5) 1 drop QID OU Last administered on 08/13/17at 13:01; Start 07/23/17 at 21:00; Stop 08/13/17 at 14:36; Status DC Acetazolamide (Diamox) 250 mg BID PO Last administered on 07/29/17at 09:11; Start 07/24/17 at 09:00; Stop 07/29/17 at 18:49; Status DC Lactobacillus Rhamnosus (Culturelle) 1 cap BID PO Last administered on 09:08; Start 07/24/17 at 21:00; Stop 08/13/17 at 14:36; Status DC Benztropine Mesylate (Cogentin) 0.5 mg DAILY PO Last administered on 08/04/17at 08:26; Start 07/26/17 at 09:00; Stop 08/04/17 at 18:47; Status DC Divalproex Sodium (Depakote Er) 500 mg QHS PO Last administered on 07/28/17at 19 :27; Start 07/25/17 at 21:30; Stop 07/29/17 at 19:19; Status DC Risperidone (RisperDAL) 0.5 mg HS PO Last administered on 08/03/17at 19:05; Start 07/26/17 at 21:00; Stop 08/04/17 at 18:47; Status DC Clonazepam (KlonoPIN) 0.25 mg BID PO Last administered on 08/01/17at 07:45; Start 07/28/17 at 21:00; Stop 08/01/17 at 20:59; Status DC Clonazepam (KlonoPIN) 0.25 mg DAILY PO Last administered on 08/03/17at 08:40; Start 08/01/17 at 09:00; Stop 08/04/17 at 08:59; Status DC Divalproex Sodium (Depakote Er) 1,000 mg QHS PO Last administered on 08/12/17 20:28; Start 07/29/17 at 21:00; Stop 08/13/17 at 14:36; Status DC Acetaminophen/ Codeine Phosphate (Tylenol #3) 1 tab PRN QID PRN PO PAIN Last administered on 08/09/17at 16:29; Start 07/31/17 at 18:30; Stop 08/13/17 at 14:36 ; Status DC Mirtazapine (Remeron) 7.5 mg QHS PO Last administered on 08/12/17 20:28; Start 08/03/17 at 21:00; Stop 08/13/17 at 14:36; Status DC Nystatin (Nystop) 1 nery BID TP Last administered on 08/13/17at 09:09; Start 08/04 at 21:00; Stop 08/13/17 at 14:36; Status DC Risperidone (RisperDAL) 2.75 mg HS PO ; Start 08/04/17 at 21:00; Stop 08/04/17 at 21:00; Status DC Risperidone (RisperDAL) 0.75 mg HS PO Last administered on 08/10/17at 20:39; Start 08/04/17 at 21:00; Stop 08/11/17 at 18:39; Status DC Furosemide (Lasix) 10 mg DAILY PO Last administered on 08/13/17at 09:08; Start at 14:00; Stop 08/13/17 at 14:36; Status DC Albuterol/ Ipratropium (Duoneb) 3 ml TID NEB Last administered on 08/13/17at 05: 50; Start 08/08/17 at 15:00; Stop 08/13/17 at 14:36; Status DC Meloxicam (Mobic) 15 mg DAILY PO Last administered on 08/13/17at 09:08; Start at 09:00; Stop 08/13/17 at 14:36; Status DC Risperidone (RisperDAL) 1 mg HS PO Last administered on 08/12/17at 20:29; Start 08/11/17 at 21:00; Stop 08/13/17 at 14:36; Status DC Active Scripts Active Reported Risperdal (Risperidone) 1 Mg Tablet 1 Mg PO QHS Nystop (Nystatin) 60 Gm Powder 1 Nery TP BID Mirtazapine 7.5 Mg Tablet 7.5 Mg PO QHS Mobic (Meloxicam) 15 Mg Tablet 15 Mg PO DAILY Culturelle (Lactobacillus Rhamnosus Gg) 1 Each Capsule 1 Cap PO BID Furosemide 20 Mg Tablet 10 Mg PO DAILY Depakote Er (Divalproex Sodium) 500 Mg Tab.er.24h 1,000 Mg PO QHS Keppra (Levetiracetam) 250 Mg Tablet 250 Mg PO BID Neurontin (Gabapentin) 300 Mg Capsule 300 Mg PO TID Jasmeet-128 (Sodium Chloride) 15 Ml Drops 1 Drop OU QID Maalox Advanced Suspension (Mag Hydrox/Aluminum Hyd/Simeth) 355 Ml Oral.susp 30 Ml PO PRN Q4HRS PRN Pepcid (Famotidine) 20 Mg Tablet 20 Mg PO BID Senokot (Sennosides) 8.6 Mg Tablet 8.6 Mg PO PRN DAILY PRN Miralax (Polyethylene Glycol 3350) 119 Gm Powder 17 Gm PO PRN DAILY PRN Duoneb 0.5-3(2.5) Mg/3 Ml (Albuterol/Ipratropium) 3 Ml Ampul.neb 3 Ml NEB TID Hydroxyzine Pamoate 50 Mg Capsule 50 Mg PO PRN Q6HRS PRN Trazodone Hcl 150 Mg Tablet 150 Mg PO QHS Levothyroxine Sodium 75 Mcg Tablet 75 Mcg PO DAILY07 Creitalo [place] 12,000 Units Capsule (Lipase/Protease/Amylase) 1 Each Capsule. 1 Cap PO TIDWMEALS Tylenol With Codeine #3 Tablet (Acetaminophen With Codeine) 1 Each Tablet 1 Tab PO PRN QID PRN I have reviewed the current psychotropics carefully including drug interactions. Risk benefit ratio favors no change other than as noted in my dictated progress note. Diagnosis: Problems: (1) Schizoaffective disorder, chronic condition with acute exacerbation (2) Impulse control disorder (3) Bipolar affective, mixed, sev w/ psych (4) Anxiety disorder ULISSES EPPS MD Aug 13, 2017 18:34
--- NOTE | 2017-08-13 20:34 | PN ---
DATE: 08/11/2017 This is a late entry of date of service 08/11/2017 and covers the elements not covered in my initial note of 08/11/2017. SUBJECTIVE: I met with the patient in the evening of 08/11/2017. Overall, per nursing report, the patient is doing better, somewhat clearer cognitively, psychotic symptoms appear improved. Valproic acid level is 77. REVIEW OF SYSTEMS: No CV, , pulmonary, eye, ENT system symptoms on review. Reliability poor. MENTAL STATUS EXAM: Oriented to herself. Insight, judgment, recent and remote memory, attention, concentration, fund of knowledge poor, consistent with her diagnosis. Despite that, she was able to interact and communicate with me much clearer than she has since admission. LABORATORY DATA: Reviewed. IMPRESSION: Schizoaffective disorder, bipolar type, with acute exacerbation, major neurocognitive disorder, early Alzheimer, vascular with delusion. Rest unchanged. PLAN: Increase Risperdal to 1 mg at bedtime, carefully reviewed drug interactions, risk and benefit ratio. Continue rest unchanged. MAN Garret EPPS MD DR: KEMAR/rashaun JOB#: [id number] / [id number]
--- NOTE | 2017-08-13 23:54 | PN ---
DATE: 08/12/2017 PSYCHIATRIC PROGRESS NOTE This is a late entry for 08/12/2017, covers elements not covered in my initial note of 08/12/2017. SUBJECTIVE: I met with the patient the evening of 08/12/2017 and staffed at a treatment team meeting with the entire team the morning of 08/12/2017. Overall, the patient appears better, more coherent in a conversation, still confused, not agitated, and aggressive. REVIEW OF SYSTEMS: No CV, , pulmonary, eye, ENT system symptoms on review. Reliability poor. MENTAL STATUS EXAM: Oriented to herself. Insight, judgment, recent and remote memory, attention, concentration, fund of knowledge poor, consistent with her diagnosis. Very pleasant, verbal, as I met with her. LABORATORY DATA: Reviewed. IMPRESSION: Schizoaffective disorder, bipolar type and major neurocognitive disorder with delusions. PLAN: Continue current psychotropics. Risperdal was increased to 1 mg. Adjust as clinically indicated. MAN Garret EPPS MD DR: KEMAR/rashaun JOB#: [id number] / [id number]
--- NOTE | 2017-08-15 12:30 | DS ---
DATE OF DISCHARGE: 08/13/2017 REASON FOR ADMISSION: Please refer to the admission history for details. Briefly, the patient is a 56-year-old female referred to us from [facility] by Dr. Ishaan Freedman her primary care physician, Dr. Lopez, her psychiatrist on account of increased confusion, incontinence, agitation with staff, marked worsening psychosis, delusions and strange behaviors. She had failed outpatient psychiatric interventions for her schizoaffective disorder, bipolar type and cognitive disorder, unspecified and referred for inpatient psychiatric stabilization. SIGNIFICANT FINDINGS AND CLINICAL COURSE: Following admission, the patient was seen daily individually by myself, followed medically per Dr. Nolan/Dr. White. The patient was extremely confused at admission, oriented just about to herself, quite psychotic. CT head was unremarkable. Adjustments were made in her psychotropics and she seemed to respond to a combination of Risperdal 1 mg at bedtime, Klonopin was being tapered to be discontinued as it was felt it was worsening her cognition. She is also on Keppra 250 mg b.i.d. for diagnosis of seizures. She did have a seizure-like episode during this hospitalization. Dr. Burton was consulted. Neurology and recommendations followed. She is also on Depakote ER 1000 mg p.o. at bedtime with a therapeutic valproic acid level, trazodone 150 mg at bedtime, hydroxyzine p.r.n., Neurontin 300 mg t.i.d. Prior to discharge 08/13/2017, no CV, , pulmonary, eye system symptoms on review. Cognitively, she appeared much clearer and coherent in a conversation, though still not aware of the date and other details, but much clear of a thought disorder, psychosis standpoint. REVIEW OF SYSTEMS: No CV, , pulmonary, eye, ENT system symptoms on review. Reliability varies. MENTAL STATUS EXAM: Oriented to herself and situation. Speech coherent, abstraction fair, computation impaired, language function intact. Mood and affect improved. Memory impaired. CONDITION AT DISCHARGE: Improved. FINAL DIAGNOSES: Schizoaffective disorder, bipolar type, mixed with psychotic features, in partial remission; cognitive disorder, unspecified; anxiety disorder, unspecified. Rest unchanged from admission including seizure disorder. DISCHARGE MEDICATIONS: Please refer to the EMRAD. DISCHARGE INSTRUCTIONS: Outpatient psychiatric medical followup at the care home. Time for discharge day management greater than 30 minutes. MAN Garret EPPS MD DR: Jeanette JOB#: [id number] / [id number]
== END 2017-08-13 14:25 | disposition home or self-care (01) | DRG 885 ==
LOC: ER 17:30 → EEVIPCON 17:30 → GEROPSY 20:31
PROVIDERS: ADMIT Psychiatry & Neurology Psychiatry; ATTEND Psychiatry & Neurology Psychiatry
DX: F25.0 Schizoaffective disorder, bipolar type (principal); G20 Parkinson's disease; I50.9 Heart failure, unspecified; E44.0 Moderate protein-calorie malnutrition; G30.9 Alzheimer's disease, unspecified; F01.51 Vascular dementia, unspecified severity, with behavioral disturbance; R13.10 Dysphagia, unspecified; M32.9 Systemic lupus erythematosus, unspecified; F02.81 Dementia in other diseases classified elsewhere, unspecified severity, with behavioral disturbance; N39.0 Urinary tract infection, site not specified; W18.39XA Other fall on same level, initial encounter; G40.909 Epilepsy, unspecified, not intractable, without status epilepticus; D50.9 Iron deficiency anemia, unspecified; F09 Unspecified mental disorder due to known physiological condition; F41.9 Anxiety disorder, unspecified; F63.9 Impulse disorder, unspecified; R70.0 Elevated erythrocyte sedimentation rate; E03.9 Hypothyroidism, unspecified; S69.91XA Unspecified injury of right wrist, hand and finger(s), initial encounter; J44.9 Chronic obstructive pulmonary disease, unspecified; Z66 Do not resuscitate; R26.9 Unspecified abnormalities of gait and mobility; E78.5 Hyperlipidemia, unspecified; E87.6 Hypokalemia; I25.10 Atherosclerotic heart disease of native coronary artery without angina pectoris; H10.9 Unspecified conjunctivitis; R32 Unspecified urinary incontinence; K21.9 Gastro-esophageal reflux disease without esophagitis; Z79.899 Other long term (current) drug therapy; Z88.1 Allergy status to other antibiotic agents; Z88.2 Allergy status to sulfonamides; Y93.89 Activity, other specified; Y92.89 Other specified places as the place of occurrence of the external cause; Y99.8 Other external cause status; Z68.31 Body mass index [BMI] 31.0-31.9, adult; Z88.8 Allergy status to other drugs, medicaments and biological substances
CPT/HCPCS: 36415; 70450; 71045; 71046; 73100; 73110; 73600; 80048; 80053; 80061; 80074; 80076; 80164; 80177; 80307; 81001; 82306; 82553; 82607; 83036; 83540; 83550; 83735; 84436; 84443; 84480; 84481; 84484; 84550; 85025; 85045; 85610; 85651; 85730; 86140; 86593; 93005; 94640; 96360; 96361; 99406; G0238; G0480; J7620; 99285-25; G0479; J7030